=== PATIENT | female | born 1970 | race Caucasian/White ===

== ENCOUNTER → 2022-04-16 10:09 | Outpatient (CLI) | payer OTHER, SELFPAY ==
--- NOTE | 2022-04-16 | DI.RAD.S_ITS ---
PROCEDURE: XR LUMBAR SPINE 2-3V INDICATIONS: BACK PAIN TECHNIQUE: 3 views of the lumbar spine were acquired. COMPARISON: None. FINDINGS: Mild lumbar levoscoliosis centered at L2. No listhesis. Vertebral body heights maintained. Disc height loss at L1-L2, L2-L3, and L3-L4 with degenerative endplate change and facet hypertrophy. Additional facet hypertrophy at L4-L5 and L5-S1. Suspected mild to moderate neural foraminal narrowing at these levels. IMPRESSION: Overall mild to moderate lumbar spine degenerative changes with suspected neural foraminal narrowing. MRI recommended. Dictated by: Hardeep Morales M.D. on 04/16/2022 at 16:39 Approved by: Hardeep Morales M.D. on 04/16/2022 at 16:41
--- NOTE | 2022-04-16 | DI.RAD.S_ITS ---
PROCEDURE: XR THORACIC SPINE 3V INDICATIONS: BACK PAIN TECHNIQUE: 3 views of the thoracic spine were acquired. COMPARISON: None. FINDINGS: Bones: No fractures or dislocations. No suspicious bony lesions. 12 pairs of ribs are noted, and appear intact where visualized. Soft tissues: No paravertebral stripe thickening. IMPRESSION: Normal thoracic spine radiographs Approved by: Rodolfo Qiu M.D. on 04/16/2022 at 16:43
== END ==
PROVIDERS: PCP Internal Medicine; Referring Provider Internal Medicine; Visit Provider Internal Medicine
DX: M47.816 Spondylosis without myelopathy or radiculopathy, lumbar region (principal); M47.817 Spondylosis without myelopathy or radiculopathy, lumbosacral region; M54.50 Low back pain, unspecified
CPT/HCPCS: 72072; 72100

== ENCOUNTER → 2022-04-19 17:05 | Outpatient (CLI) | payer OTHER, SELFPAY ==
--- NOTE | 2022-04-19 | DI.MRI.S_ITS ---
PROCEDURE: MR LUMBAR SPINE WO CON INDICATIONS: Low back pain, unspecified TECHNIQUE: Noncontrast sagittal T1 spin echo and T2 fast echo, sagittal STIR, and T2 fast spin echo through the lumbar spine. In cases with scoliosis, additional coronal T2 fast spin echo may be performed. COMPARISON: [facility], CR, XR LUMBAR SPINE 2-3V, 04/16/2022, 11:05. FINDINGS: Image quality: Diagnostic Alignment and Curvature: Mild levoconvex scoliotic curvature is noted. Minimal retrolisthesis is seen at the L2-L3 level. Bone Marrow: Marrow is of normal overall signal. No acute vertebral body compression fractures. Spinal Cord: Conus medullaris terminates at the T12-L1 level. Visualized cord demonstrates normal signal and size. Paraspinous Soft Tissues: No paravertebral masses. T11-T12: Normal. T12-L1: The disc height and disk signal are relatively well-preserved. Mild disc bulge is seen, with a central/left disc protrusion, as on series 2, image 10 and on series 5, image 3. No neural foraminal narrowing is seen. No significant central canal narrowing is seen. L1-L2: [id number] loss of disc height and disc signal can be seen. Mild disc bulge is seen, with a central/right disc protrusion, as on series 2, image 10 on series 5, image 8. No neural foraminal narrowing is seen. Mild central canal narrowing is seen. L2-L3: Mild loss of disc height is seen. Loss of disc signal is seen. Moderate disc bulge is seen, which is eccentric to the left. There is a left foraminal disc protrusion, as on series 5 image 14 and on series 3, image 13. Mild to moderate facet hypertrophy is seen. There is at least moderate left-sided neural foraminal narrowing, with a mild degree of compression upon the exiting left L2 nerve root. Mild right-sided neural foraminal narrowing is seen. Mild central canal narrowing is seen. L3-L4: The disc height is well-preserved. Loss of disc signal is seen at this level. Mild to moderate disc bulge is seen, with a left foraminal disc protrusion, as on series 5, image 19 and on series 3 image 13. Mild facet joint hypertrophy is seen. There is moderate left-sided and no significant right-sided neural foraminal narrowing. No significant central canal narrowing is seen. L4-L5: The disc height is well-preserved. Loss of disc signal is seen at this level. Mild generalized disc bulge is seen. Mild facet joint hypertrophy is seen. There is [id number] right-sided and mild left-sided neural foraminal narrowing. No significant central canal narrowing is seen. L5-S1: No significant abnormality is seen. IMPRESSION: Multiple levels of lumbar spine degenerative change are seen, which are overall worst at the L2-L3 level. Dictated by: Steve Cloud M.D. on 04/20/2022 at 9:47 Approved by: Steve Cloud M.D. on 04/20/2022 at 9:51
== END ==
PROVIDERS: PCP Internal Medicine; Referring Provider Internal Medicine; Visit Provider Internal Medicine
DX: M47.816 Spondylosis without myelopathy or radiculopathy, lumbar region (principal); M54.50 Low back pain, unspecified
CPT/HCPCS: 72148

== ENCOUNTER 2022-06-08 05:25 | Emergency (ER) | payer OTHER, SELFPAY ==
[2022-06-08] VITALS (10 sets, daily range): BP systolic 127–160; BP diastolic 65–84; PULSE 80–104; RESP 16–18; TEMP 36.6–36.9; O2SAT 95–98; BMI 31.1
--- NOTE | 2022-06-08 05:49 | ED.BACK ---
HPI - Back Pain/Injury <Luke Penn DO - Last Filed: 06/09/22 06:21> General Chief Complaint: Back Pain/Injury Stated Complaint: lower back pain, hard time walking Time Seen by Provider: 06/08/22 05:30 Source: patient History of Present Illness HPI Narrative: 51-year-old female nonsmoker with known chronic back pain and degenerative disc disease with MRI as recently as April presents with her in the chief complaint severe low back pain with radiation down both legs. She states that she had been having her routine back pain which seems to come and go, she has good days and bad days but went to bed in her normal state of health and upon waking found that her back pain was significantly worse and radiates down both legs. She denies any recent trauma or injury. She is had no fever or chills and denies any trouble controlling bowel or bladder. She takes no blood thinners denies lower extremity numbness, tingling or weakness. Her current pain regimen includes Percocet in the occasional CBD gummy. She is not been on steroids, gabapentin or anti-inflammatories Related Data Previous Rx's Medication Instructions Recorded methocarbamol 750 mg tablet 750 mg PO Q12HR #20 tabs 06/08/22 oxycodone-acetaminophen 5 mg-325 1 tab PO Q6H PRN pain #10 tabs 06/08/22 mg tablet (Percocet) Allergies Allergy/AdvReac Type Severity Reaction Status Date / Time Sulfa (Sulfonamide Allergy Rash Verified 06/08/22 06:21 Antibiotics) Review of Systems <DO Oswaldo Beck Last Filed: 06/09/22 06:21> Review of Systems Narrative: GENERAL: Denies chills, fatigue, malaise, fever, sweats. HEENT: Denies sinus pain, ear pain, sore throat, difficulty swallowing, dizziness. RESPIRATORY: Denies dyspnea, cough, wheezing, hemoptysis, sputum. CARDIOVASCULAR: Denies chest pain, palpitations, orthopnea, edema, GASTROINTESTINAL: Denies nausea, vomiting, abdominal pain, diarrhea, constipation, melena. : Denies dysuria, frequency, incontinence, hematuria, urinary retention. MUSCULOSKELETAL: See HPI SKIN: Denies rash, skin lesions, or other NEUROLOGIC: Denies weakness, headache, numbness, change in speech, confusion, seizures, incoordination. PSYCHIATRIC: No concerning psychosocial issues. 12 point review of systems is negative except for those stated above Patient History <Luke Penn DO - Last Filed: 06/09/22 06:21> Social History Smoking Status: Never smoker Smoking Status: Never smoker Substance Use Type: other Exam <DO Oswaldo Beck Last Filed: 06/09/22 06:21> Narrative Exam Narrative: GENERAL: [] year old patient appears stated age. Well-developed patient, in mild distress. HEAD: Atraumatic. Normocephalic. EYES: Pupils equal round and reactive. Extraocular motions intact. No scleral icterus. No injection or drainage. ENT: Nose without bleeding, purulent drainage. Throat without erythema, tonsillar hypertrophy or exudate. Airway patent. NECK: Trachea midline. Non tender CARDIOVASCULAR: Regular rate and rhythm without murmurs, gallops, or rubs. RESPIRATORY: Clear to auscultation. Breath sounds equal bilaterally. No wheezes, rales, or rhonchi. GASTROINTESTINAL: Abdomen soft, non-tender, nondistended. EXTREMITIES: No edema or joint tenderness. BACK: rabble furnace tender but free of any obvious external abnormalities. Patient exam notes decreased range of motion and muscle spasm, but no CVA tenderness, or vertebral point tenderness. There are no symptoms of cauda equina such as saddle anesthesia, and decreased reflexes, decreased sensation or strength. NEURO: AOx3. SKIN: No rash or erythema of visible areas Initial Vital Signs Initial Vital Signs: Vital Signs Pulse Rate 98 H 06/08/22 05:37 Pulse Oximetry 97 06/08/22 05:37 <Machelle Bryant DO - Last Filed: 06/08/22 19:39> Initial Vital Signs Initial Vital Signs: Vital Signs Pulse Rate 98 H 06/08/22 05:37 Pulse Oximetry 97 06/08/22 05:37 Course <Luke Penn DO - Last Filed: 06/09/22 06:21> Orders Ordered: Discontinued Medications Gabapentin (Gabapentin 300 Mg Capsule) 300 mg PO NOW ONE Stop: 06/08/22 06:01 Last Admin: 06/08/22 06:34 Dose: 300 mg Documented By: GC Ketorolac Tromethamine (Ketorolac 30 Mg/Ml Vial) 30 mg IM NOW ONE Stop: 06/08/22 06:01 Last Admin: 06/08/22 06:33 Dose: 30 mg Documented By: SHANTEL Methocarbamol (Methocarbamol 500 Mg Tablet) 750 mg PO NOW ONE Stop: 06/08/22 07:57 Last Admin: 06/08/22 08:59 Dose: 750 mg Documented By: DELIO Oxycodone/Acetaminophen (Oxycodone/Acetaminophen 5/325 Tablet) 1 tab PO NOW ONE Stop: 06/08/22 07:57 Last Admin: 06/08/22 08:59 Dose: 1 tab Documented By: DELIO Prednisone (Prednisone 20 Mg Tablet) 40 mg PO NOW ONE Stop: 06/08/22 06:01 Last Admin: 06/08/22 06:34 Dose: 40 mg Documented By: SHANTEL Vital Signs Vital signs: Vital Signs - 8 hr 06/08/22 05:41 Temperature 98 F Pulse Rate 100 H Respiratory Rate 16 Blood Pressure 157/84 H Pulse Oximetry 97 Oxygen Delivery Method Room Air <Machelle Bryant DO - Last Filed: 06/08/22 19:39> Orders Ordered: Discontinued Medications Gabapentin (Gabapentin 300 Mg Capsule) 300 mg PO NOW ONE Stop: 06/08/22 06:01 Last Admin: 06/08/22 06:34 Dose: 300 mg Documented By: SHANTEL Ketorolac Tromethamine (Ketorolac 30 Mg/Ml Vial) 30 mg IM NOW ONE Stop: 06/08/22 06:01 Last Admin: 06/08/22 06:33 Dose: 30 mg Documented By: SHANTEL Methocarbamol (Methocarbamol 500 Mg Tablet) 750 mg PO NOW ONE Stop: 06/08/22 07:57 Last Admin: 06/08/22 08:59 Dose: 750 mg Documented By: DELIO Oxycodone/Acetaminophen (Oxycodone/Acetaminophen 5/325 Tablet) 1 tab PO NOW ONE Stop: 06/08/22 07:57 Last Admin: 06/08/22 08:59 Dose: 1 tab Documented By: DELIO Prednisone (Prednisone 20 Mg Tablet) 40 mg PO NOW ONE Stop: 06/08/22 06:01 Last Admin: 06/08/22 06:34 Dose: 40 mg Documented By: SHANTEL Vital Signs Vital signs: Vital Signs - 8 hr 06/08/22 05:41 Temperature 98 F Pulse Rate 100 H Respiratory Rate 16 Blood Pressure 157/84 H Pulse Oximetry 97 Oxygen Delivery Method Room Air <Machelle Bryant, DO - Last Filed: 06/08/22 19:39> Imaging Data MR Lumbar 04/20/2022: Radiologist's Impression: ROCEDURE:? MR LUMBAR SPINE WO CON ? INDICATIONS:? Low back pain, unspecified ? TECHNIQUE:? Noncontrast sagittal T1 spin echo and T2 fast echo, sagittal STIR, and T2 fast spin echo through the lumbar spine.? In cases with scoliosis, additional coronal T2 fast spin echo may be performed.? ? COMPARISON:? [facility], CR, XR LUMBAR SPINE 2-3V, 04/16/2022, 11:05. ? FINDINGS:? Image quality:? Diagnostic ? Alignment and Curvature:? Mild levoconvex scoliotic curvature is noted.? Minimal retrolisthesis is seen at the L2-L3 level. ? Bone Marrow:? Marrow is of normal overall signal.? No acute vertebral body compression fractures.? ? Spinal Cord:? Conus medullaris terminates at the T12-L1 level.? Visualized cord demonstrates normal signal and size.? ? Paraspinous Soft Tissues:? No paravertebral masses.? ? T11-T12:? Normal. ? T12-L1:? The disc height and disk signal are relatively well-preserved.? Mild disc bulge is seen, with a central/left disc protrusion, as on series 2, image 10 and on series 5, image 3.? No neural foraminal narrowing is seen.? No significant central canal narrowing is seen. ? L1-L2:? [id number] loss of disc height and disc signal can be seen.? Mild disc bulge is seen, with a central/right disc protrusion, as on series 2, image 10 on series 5, image 8. No neural foraminal narrowing is seen. Mild central canal narrowing is seen.? ? ? L2-L3:? Mild loss of disc height is seen. Loss of disc signal is seen.? Moderate disc bulge is seen, which is eccentric to the left.? There is a left foraminal disc protrusion, as on series 5 image 14 and on series 3, image 13. Mild to moderate facet hypertrophy is seen.? There is at least moderate left-sided neural foraminal narrowing, with a mild degree of compression upon the exiting left L2 nerve root.? Mild right-sided neural foraminal narrowing is seen. Mild central canal narrowing is seen.? ? ? L3-L4:? The disc height is well-preserved.? Loss of disc signal is seen at this level.? Mild to moderate disc bulge is seen, with a left foraminal disc protrusion, as on series 5, image 19 and on series 3 image 13. Mild facet joint hypertrophy is seen.? There is moderate left-sided and no significant right-sided neural foraminal narrowing.? No significant central canal narrowing is seen.? ? L4-L5:? The disc height is well-preserved.? Loss of disc signal is seen at this level.? Mild generalized disc bulge is seen.? Mild facet joint hypertrophy is seen.? There is [id number] right-sided and mild left-sided neural foraminal narrowing.? No significant central canal narrowing is seen. ? L5-S1:? No significant abnormality is seen. ? ? IMPRESSION:? Multiple levels of lumbar spine degenerative change are seen, which are overall worst at the L2-L3 level. ? ? Dictated by: Steve Cloud M.D. on 04/20/2022 at 9:47 ?? MDM Narrative Medical decision making narrative: Patient signed out to me by Dr. Penn I have seen and evaluated patient myself. Chronic ongoing back pain had a MRI spine 04/20/2022 which showed multiple degenerative disc disease no significant stenosis. Presents today with bilateral leg pain no loss of bowel or urine no significant weakness in her legs. She received Toradol prednisone and gabapentin without any relief. She reports that she only took half a Percocet prior arrival she does not typically like opiates. She also methocarbamol at home which she took last night and is now out. Discharge Plan Departure Patient Disposition: Home Clinical Impression: Acute exacerbation of chronic low back pain Instructions: DI for Back Pain With Sciatica Activity Restrictions/Additional Instructions: *You have been diagnosed with acute on chronic back pain *What to do: At this time I recommend heating pad hot bath light massage some light activity and movement. No strenuous activity *Continue to take medications as directed --> SENT TO [facility] Percocet 1 tablet every 6 hours if needed for severe pain Ibuprofen 600 mg every 6 hours if needed for [id number] Methocarbamol 752 1500 mg every 8 hours if needed for muscle spasm *Follow up with your primary care provider in 2-3 days or call [phone] *Return to ER if you should have increasing leg weakness loss of urine loss of stool or any new, worsening or concerning symptoms CONTROLLED SUBSTANCE DISCHARGE (Narcotoic/benzodiazepine/Flexeril/Phenergan) 1. You have been prescribed narcotic medications, it does have acetaminophen/Tylenol/paracetamol in it, DO NOT TAKE MORE THAN 4,00mg in 24 hours of Tylenol. TRAMADOL DOES NOT CONTAIN TYLENOL 2. Please understand that we cannot provide further refills of narcotics, benzodiazepines or controlled substances through the ED and her pain management will need to be through your provider. 3. While on these medications you cannot drive or operate heavy machinery. 4. You cannot sign legal documents or perform any duties such as this. 5. As long as you're taking opiate pain medications he should also be taking a stool softener such as Colace, Dulcolax, MiraLAX or prune juice, to help avoid constipation. Prescriptions: New oxycodone-acetaminophen [Percocet] 5-325 mg tablet 1 tab PO Q6H PRN (Reason: pain) Qty: 10 0RF methocarbamol 750 mg tablet 750 mg PO Q12HR Qty: 20 0RF Stand Alone Forms: Patient Portal/API
[2022-06-08] MEDS: KETOROLAC 30 MG/ML VIAL IM (06:33)
[2022-06-08] MEDS: predniSONE 20 MG TABLET 40 MG PO (06:34)
[2022-06-08] MEDS: GABAPENTIN 300 MG CAPSULE PO (06:34)
[2022-06-08] MEDS: methocarbamoL 500 MG TABLET 750 MG PO (08:59)
[2022-06-08] MEDS: OXYCODONE/ACETAMINOPHEN 5/325 TABLET 1 TAB PO (08:59)
== END 2022-06-08 09:02 | disposition home or self-care (01) ==
PROVIDERS: Emergency Provider Emergency Medicine
DX: M54.50 Low back pain, unspecified (principal); M51.36 Other intervertebral disc degeneration, lumbar region
CPT/HCPCS: 99283; J1885

== ENCOUNTER 2022-06-08 18:57 | Emergency (ER) | payer OTHER, SELFPAY ==
[2022-06-08 19:06] VITALS: BP 154/91; PULSE 104; RESP 16; TEMP 36.6; O2SAT 99; BMI 31.1
--- NOTE | 2022-06-08 19:39 | ED_ITS ---
HPI - Back Pain/Injury General Chief Complaint: Back Pain/Injury Stated Complaint: Fall, ABD pain Time Seen by Provider: 06/08/22 19:21 History of Present Illness HPI Narrative: [age] year female nonsmoker with chronic back pain presents for the 2nd time today for evaluation of severe, if not worsening back pain. She was seen by myself earlier today and had no evidence of neurosurgical emergency, was medicated with opioids, gabapentin, methocarbamol, prednisone, ketorolac demonstrated significant improvement, had MRI in April that showed no significant abnormal finding. She returns by EMS due to worsening pain and a few falls due to her right leg giving out on her. She denies any fever or chills, she denies the use of blood thinners. She denies loss of control of bowel or bladder. She states that she had been much more comfortable earlier in the day but as the day has worn on her symptoms have worsened Related Data Previous Rx's Medication Instructions Recorded methocarbamol 750 mg tablet 750 mg PO Q12HR #20 tabs 06/08/22 oxycodone-acetaminophen 5 mg-325 1 tab PO Q6H PRN pain #10 tabs 06/08/22 mg tablet (Percocet) Allergies Allergy/AdvReac Type Severity Reaction Status Date / Time Sulfa (Sulfonamide Allergy Rash Verified 06/08/22 06:21 Antibiotics) Review of Systems Review of Systems Narrative: GENERAL: Denies chills, fatigue, malaise, fever, sweats. HEENT: Denies sinus pain, ear pain, sore throat, difficulty swallowing, dizziness. RESPIRATORY: Denies dyspnea, cough, wheezing, hemoptysis, sputum. CARDIOVASCULAR: Denies chest pain, palpitations, orthopnea, edema, GASTROINTESTINAL: Denies nausea, vomiting, abdominal pain, diarrhea, constipation, melena. : See HPI MUSCULOSKELETAL: See HPI SKIN: Denies rash, skin lesions, or other NEUROLOGIC: See HPI PSYCHIATRIC: No concerning psychosocial issues. 12 point review of systems is negative except for those stated above Patient History Social History Smoking Status: Never smoker Smoking Status: Never smoker Substance Use Type: other Exam Narrative Exam Narrative: GENERAL: [51] year old patient appears stated age. Well-developed patient, in obvious distress. HEAD: Atraumatic. Normocephalic. EYES: Pupils equal round and reactive. Extraocular motions intact. No scleral icterus. No injection or drainage. ENT: Nose without bleeding, purulent drainage. Throat without erythema, tonsillar hypertrophy or exudate. Airway patent. NECK: Trachea midline. Non tender CARDIOVASCULAR: Regular rate and rhythm without murmurs, gallops, or rubs. RESPIRATORY: Clear to auscultation. Breath sounds equal bilaterally. No wheezes, rales, or rhonchi. GASTROINTESTINAL: Abdomen soft, non-tender, nondistended. RECTAL: Rectal tone in tact EXTREMITIES: No edema or joint tenderness. BACK: Decreased sensation but still can sense touch in saddle region. Patient able to lift left leg off the cart but briskly falls back to the cart, this is a change from earlier today. Bilateral patellar reflexes absent. Left leg with myoclonus upon passive active dorsiflexion of ankle. Significant decreased sensa tion. NEURO: AOx3. SKIN: No rash or erythema of visible areas Initial Vital Signs Initial Vital Signs: Vital Signs Temperature 97.8 F 06/08/22 19:06 Pulse Rate 104 H 06/08/22 19:06 Respiratory Rate 16 06/08/22 19:06 Blood Pressure 154/91 H 06/08/22 19:06 Pulse Oximetry 99 06/08/22 19:06 Oxygen Delivery Method Room Air 06/08/22 19:06 Course Course Course Narrative: Upon return from CT patient complains of worsening lower pelvic pain and an inability to urinate. Bedside bladder scan notes greater than 999 mL. Haas catheter placed and 1500 cc of urine out, patient reports significant improved symptoms in her anterior lower pelvic pain Orders Ordered: ED Orders 06/08/22 20:03 C-Reactive Protein Quant Stat Complete Blood Count AUTO DIFF Stat Comprehensive Metabolic Panel Stat Erythrocyte Sedimentation Rate Stat Lactate (Lactic Acid) Stat Troponin & CK Cardiac Panel Stat 06/08/22 21:00 COVID19 -Nasal RAPID/Pre-Proc Stat 06/08/22 21:47 COVID19 -Nasal RAPID/Pre-Proc Stat 06/08/22 21:56 Urinalysis and Microscopic Stat Discontinued Medications Dexamethasone (Dexamethasone 10 Mg/Ml Vial) 6 mg IV NOW ONE Stop: 06/09/22 04:25 Last Admin: 06/09/22 04:50 Dose: 6 mg Hydromorphone HCl (Hydromorphone 0.5 Mg Inj) 0.5 mg IV NOW ONE Stop: 06/08/22 23:06 Last Admin: 06/08/22 23:18 Dose: 0.5 mg Documented By: CRISTIAN Hydromorphone HCl (Hydromorphone 0.5 Mg Inj) 0.5 mg IV NOW ONE Stop: 06/09/22 02:39 Last Admin: 06/09/22 02:45 Dose: 0.5 mg Documented By: BAN Hydromorphone HCl (Hydromorphone 0.5 Mg Inj) 0.5 mg IV NOW ONE Stop: 06/09/22 02:39 Sodium Chloride (Normal Saline 0.9%) 1,000 mls @ 1,000 mls/hr IV BOLUS ONE Stop: 06/08/22 20:40 Last Infusion: 06/08/22 22:01 Dose: 0 mls/hr Documented By: Admin: 06/08/22 20:22 Dose: 1,000 mls/hr Documented By: CRISTIAN Ketorolac Tromethamine (Ketorolac 30 Mg/Ml Vial) 15 mg IV NOW ONE Stop: 06/09/22 04:25 Last Admin: 06/09/22 04:51 Dose: 15 mg Lorazepam (Lorazepam 2 Mg/Ml Inj) 1 mg IM NOW ONE Stop: 06/08/22 19:46 Last Admin: 06/08/22 20:21 Dose: 1 mg Documented By: CRISTIAN Vital Signs Vital signs: Vital Signs - 8 hr 06/08/22 21:00 06/09/22 02:59 06/09/22 03:00 Pulse Rate 113 H 93 H Blood Pressure 128/69 146/83 H Pulse Oximetry 100 94 Oxygen Delivery Method Room Air 06/09/22 03:00 06/09/22 03:30 06/09/22 03:30 Pulse Rate 95 H 100 H Blood Pressure 146/87 H Pulse Oximetry 95 94 Oxygen Delivery Method Room Air 06/09/22 04:00 06/09/22 04:00 Pulse Rate 92 H Blood Pressure 127/82 Pulse Oximetry 94 Oxygen Delivery Method Room Air MDM - Back Pain/Injury Lab Data 06/08/22 20:03 06/08/22 20:03 Labs: Lab Results 06/08/22 06/08/22 06/08/22 Range/Units 20:03 20:03 20:03 WBC 13.5 H (4.5-11.0) X10^3/uL RBC 4.86 (4.0-5.2) X10^6/uL Hgb 13.9 (12.0-16.0) g/dL Hct 41.2 (36-46) % MCV 84.7 (80-100) fL MCH 28.7 (26-34) PG MCHC 33.8 (30-36) % RDW 13.3 (11.6-14.8) % Plt Count 373 (150-400) X10^3/uL Neut % (Auto) 86.4 H (50-75) % Lymph % (Auto) 7.2 L (25-40) % [place] % (Auto) 6.0 (3-14) % Eos % (Auto) 0.0 L (2-4) % Baso % (Auto) 0.4 (0-2) % Neut # (Auto) 73346 H (6769-2783) /uL Lymph # (Auto) 1000 L (0286-2086) /uL [place] # (Auto) 800 (0-900) /uL Eos # (Auto) 0 (0-450) /uL Baso # (Auto) 100 (0-100) /uL ESR 17 (0-20) MM/HR Sodium 137 (137-145) mmol/L Potassium 4.4 (3.4-5.1) mmol/L Chloride 104 (98-107) mmol/L Carbon Dioxide 22 (22-32) mmol/L BUN 8 (7-17) mg/dL Creatinine 0.64 (0.52-1.04) mg/dL Estimated GFR > 60 (>60) mL/min BUN/Creatinine Ratio 12.5 (6-22) Glucose 119 H (70-100) mg/dL Lactate 2.0 (0.7-2.1) mmol/L Calcium 9.4 (8.4-10.2) mg/dL Total Bilirubin 0.5 (0.2-1.3) mg/dL AST 48 H (14-36) IU/L ALT 39 H (<35) IU/L Alkaline Phosphatase 100 (38-126) U/L Total Creatine Kinase 78 (30-135) U/L CK-MB (CK-2) TNP CK-MB (CK-2) Rel Index TNP Troponin I < 0.012 (0.01-0.034) ng/mL C-Reactive Protein 1.9 H (<1.0) mg/dL Total Protein 8.1 (6.3-8.2) g/dL Albumin 4.4 (3.5-5.0) g/dL Globulin 3.7 (1.7-4.1) g/dL Albumin/Globulin Ratio 1.2 (1.0-2.8) Urine Color Urine Appearance Urine pH (4.5-8.0) Ur Specific [place] (1.000-1.035) Urine Protein (Negative) Urine Glucose (UA) (Negative) g/dL Urine Ketones (NEGATIVE) Urine Occult Blood (Negative) Urine Nitrate (Negative) Urine Bilirubin (NEGATIVE) Urine Urobilinogen (0.2) E.U./dL Ur Leukocyte Esterase (NEGATIVE) Urine RBC (0-5/HPF) Urine WBC (0-5/HPF) Ur Squamous Epith Cells (0-5/HPF) Urine Bacteria (None) Ur Culture Indicated? SARS-CoV-2 (PCR) (Negative) 06/08/22 06/08/22 06/09/22 Range/Units 21:00 21:56 02:47 WBC (4.5-11.0) X10^3/uL RBC (4.0-5.2) X10^6/uL Hgb (12.0-16.0) g/dL Hct (36-46) % MCV (80-100) fL MCH (26-34) PG MCHC (30-36) % RDW (11.6-14.8) % Plt Count (150-400) X10^3/uL Neut % (Auto) (50-75) % Lymph % (Auto) (25-40) % [place] % (Auto) (3-14) % Eos % (Auto) (2-4) % Baso % (Auto) (0-2) % Neut # (Auto) (9866-9300) /uL Lymph # (Auto) (2861-2762) /uL [place] # (Auto) (0-900) /uL Eos # (Auto) (0-450) /uL Baso # (Auto) (0-100) /uL ESR (0-20) MM/HR Sodium (137-145) mmol/L Potassium (3.4-5.1) mmol/L Chloride (98-107) mmol/L Carbon Dioxide (22-32) mmol/L BUN (7-17) mg/dL Creatinine (0.52-1.04) mg/dL Estimated GFR (>60) mL/min BUN/Creatinine Ratio (6-22) Glucose (70-100) mg/dL Lactate (0.7-2.1) mmol/L Calcium (8.4-10.2) mg/dL Total Bilirubin (0.2-1.3) mg/dL AST (14-36) IU/L ALT (<35) IU/L Alkaline Phosphatase (38-126) U/L Total Creatine Kinase (30-135) U/L CK-MB (CK-2) CK-MB (CK-2) Rel Index Troponin I (0.01-0.034) ng/mL C-Reactive Protein (<1.0) mg/dL Total Protein (6.3-8.2) g/dL Albumin (3.5-5.0) g/dL Globulin (1.7-4.1) g/dL Albumin/Globulin Ratio (1.0-2.8) Urine Color Yellow Urine Appearance Clear Urine pH 7.0 (4.5-8.0) Ur Specific [place] 1.010 (1.000-1.035) Urine Protein Negative (Negative) Urine Glucose (UA) Negative (Negative) g/dL Urine Ketones Negative (NEGATIVE) Urine Occult Blood Negative (Negative) Urine Nitrate Negative (Negative) Urine Bilirubin Negative (NEGATIVE) Urine Urobilinogen 0.2 (0.2) E.U./dL Ur Leukocyte Esterase Negative (NEGATIVE) Urine RBC None seen (0-5/HPF) Urine WBC 0-1/hpf (0-5/HPF) Ur Squamous Epith Cells 0-1 /hpf (0-5/HPF) Urine Bacteria None seen (None) Ur Culture Indicated? Cult not indicated SARS-CoV-2 (PCR) Negative Negative (Negative) MDM Narrative Medical decision making narrative: CC: 51-year-old female with severe low back pain, left leg weakness contributing to falls, urinary retention Complicating co-morbidities: Age Data collected from: Patient Medical records reviewed: Prior notes reviewed in our EMR Differential considered, but not limited to: Cord compression, cauda equina versus other Exam documented above, pertinent findings include: Saddle anesthesia, intact rectal tone, significantly depressed sensation and lower extremity reflexes, left lower extremity weakness, left lower extremity myoclonus Lab Test results independently reviewed as above. Pertinent findings: Leukocytosis without significant left shift, H&H stable, slight elevation in LFTs, slight elevation in inflammatory markers Imaging studies independently reviewed: No access to MRI, CT with IV contrast of L-spine and pelvis without significant abnormal findings [place]ations: [place] [facility] [place]ments: Decadron, Dilaudid, Gabapentin, Ativan, Toradol Re-evaluations: Minimal improvement in pain, no change in neuro Discussion: Patient with severe low back pain, urinary retention, saddle anesthesia, severe left leg weakness causing falls, severely depressed sensation, reflexes with myoclonus. These symptoms have all rapidly worsened over the past 24 hours, patient was seen and evaluated yesterday in the symptoms have significantly worsened. We do not have access to MRI, our best attempts at imaging available as CT with IV contrast which showed no significant findings. Patient had no improvement with above-stated therapies and there is significant concern for a neurosurgical emergency such as cord compression, cauda equina, epidural abscess, hematoma versus other. Patient will be transported by air medical given potential for significant delays by ground Critical Care Time Critical Care Time Critical Care Time: Yes Total Critical Care Time: 30 Attestation: The high probability of a clinically significant, sudden or life threatening deterioration of the [MSK] system(s) required my full and direct attention, intervention and personal management. The aggregate critical care time was [30] minutes. This time is in addition to time spent performing reported procedures but includes the following: [x] Data Review and interpretation [x] Patient assessment and monitoring of vital signs [x] Documentation []x Medication orders and management Discharge Plan [facility]: Cord compression, Cauda equina compression Prescriptions: No Action oxycodone-acetaminophen [Percocet] 5-325 mg tablet 1 tab PO Q6H PRN (Reason: pain) Qty: 10 0RF methocarbamol 750 mg tablet 750 mg PO Q12HR Qty: 20 0RF
--- NOTE | 2022-06-08 19:45 | DI.CT.S_ITS ---
PROCEDURE: CT LUMBAR SPINE W CON INDICATIONS: worsening back pain, radicular symptoms TECHNIQUE: After the administration of intravenous Isovue contrast, 3 mm thick sections acquired through the levels of interest. Sagittal and coronal reformats were then constructed. For radiation dose reduction, the following was used: automated exposure control. COMPARISON: [facility], MR, MR LUMBAR SPINE WO CON, 04/19/2022, 18:29. FINDINGS: Image quality: Excellent. Bones: No acute fracture or subluxation. There are 5 lumbar type [id number] vertebrae. A mild leftward curvature of the thoracolumbar spine is redemonstrated. There is minimal retrolisthesis at L2-L3. There is mild to moderate degenerative disc disease at L2-L3. There are small disc bulges throughout the lumbar spine. No high-grade spinal canal narrowing. Multilevel neural foraminal narrowing also demonstrated including moderate narrowing on the left at L2-L3 with associated mass effect on the exiting left nerve root. There is also mild narrowing on the right. Additional mild neural foraminal narrowing also demonstrated at L3-L4 and L4-5 bilaterally. Soft tissues: No paravertebral collections. Visualized abdomen demonstrates no intraperitoneal free fluid. There is distention of the visualized bladder. IMPRESSION: 1. No acute fracture or subluxation. 2. Mild to moderate degenerative disc disease redemonstrated at L2-L3. 3. Mild multilevel disc bulging without high-grade spinal canal narrowing. 4. Multilevel neural foraminal narrowing including moderate narrowing on the left at L2-L3 with mild mass effect on the exiting left nerve root. Findings appear similar to the recent MRI. Dictated by: Rudi Carter M.D. on 06/08/2022 at 22:25 Approved by: Rudi Carter M.D. on 06/08/2022 at 22:31
--- NOTE | 2022-06-08 19:45 | DI.CT.S_ITS ---
PROCEDURE: CT PELVIS W CON INDICATIONS: worsening low back pain and low pelvic pain, radicular TECHNIQUE: After the administration of intravenous contrast, 5 mm thick sections acquired from the iliac crests to the symphysis. 5 mm coronal and sagittal reformats were acquired. For radiation dose reduction, the following was used: automated exposure control, adjustment of mA and/or kV according to patient size. COMPARISON: [facility], CT, CT LUMBAR SPINE W CON, 06/08/2022, 20:57. FINDINGS: Image quality: Excellent. Peritoneum and bowel: Visualized bowel loops demonstrate normal wall thickness and caliber. No free fluid or air. Genitourinary: Bladder wall thickness is normal. There is marked distention of the bladder. Nodes and vessels: No iliac, pelvic, or inguinal adenopathy by size criteria. Iliac vessels demonstrate normal size and enhancement. Bones: No suspicious bony lesions. Miscellaneous: No inguinal hernias. No pelvic mass lesions. Specifically, no abnormal mass lesions along the expected course of the lumbar plexus. IMPRESSION: 1. No suspicious mass lesions in the pelvis. 2. Marked distention of the urinary bladder. Dictated by: Rudi Carter M.D. on 06/08/2022 at 22:31 Approved by: Rudi Carter M.D. on 06/08/2022 at 22:33
[2022-06-08 20:00] VITALS: BP 142/86; PULSE 100; O2SAT 97
[2022-06-08 20:19] LABS: Add Manual Diff / Slide Review NO; Basophils Absolute Auto 100 /uL (0-100); Basophils Percent Auto 0.4 % (0-2); Eosinophils Absolute Auto 0 /uL (0-450); Hematocrit 41.2 % (36-46); Hemoglobin 13.9 g/dL (12.0-16.0); Lymphocytes Absolute Auto 1000 /uL (1100-4500); Lymphocytes Percent Auto 7.2 % (25-40); Mean Corpuscular HGB Conc 33.8 % (30-36); Mean Corpuscular Hemoglobin 28.7 PG (26-34); Mean Corpuscular Volume 84.7 fL (80-100); Monocytes Absolute Auto 800 /uL (0-900); Neutrophils Absolute Auto 11600 /uL (1500-7000); Neutrophils Percent Auto 86.4 % (50-75); Platelet Count 373 X10^3/uL (150-400); Red Blood Cell Count 4.86 X10^6/uL (4.0-5.2); Red Cell Distribution Width 13.3 % (11.6-14.8); White Blood Cell Count 13.5 X10^3/uL (4.5-11.0)
[2022-06-08] MEDS: LORazepam 2 MG/ML INJ 1 MG IM (20:21)
[2022-06-08] MEDS: SODIUM CHLORIDE 0.9% 1,000 ML 1000 ML IV (20:22)
[2022-06-08 20:30] VITALS: BP 142/82; PULSE 101; O2SAT 98
[2022-06-08 20:33] LABS: Alanine Aminotransferase 39 IU/L (<35); Albumin 4.4 g/dL (3.5-5.0); Albumin Globulin Ratio 1.2 (1.0-2.8); Alkaline Phosphatase 100 U/L (38-126); Aspartate Aminotransferase 48 IU/L (14-36); BUN Creatinine Ratio 12.5 (6-22); Bilirubin Total 0.5 mg/dL (0.2-1.3); Blood Urea Nitrogen 8 mg/dL (7-17); C-Reactive Protein Quant 1.9 mg/dL (<1.0); Calcium 9.4 mg/dL (8.4-10.2); Carbon Dioxide 22 mmol/L (22-32); Chloride 104 mmol/L (98-107); Creatine Kinase 78 U/L (30-135); Estimated Glomerular Filt Rate > 60 mL/min (>60); Globulin 3.7 g/dL (1.7-4.1); Glucose 119 mg/dL (70-100); HEMOLYSIS < 15 (0-50); Potassium 4.4 mmol/L (3.4-5.1); Sodium 137 mmol/L (137-145); Total Protein 8.1 g/dL (6.3-8.2)
[2022-06-08 20:43] LABS: Troponin I < 0.012 ng/mL (0.01-0.034)
[2022-06-08 20:56] LABS: Erythrocyte Sedimentation Rate 17 MM/HR (0-20)
[2022-06-08 21:00] VITALS: BP 128/69; PULSE 113; O2SAT 100
[2022-06-08 21:24] LABS: COVID19 -Nasal RAPID Negative (Negative)
[2022-06-08 22:04] LABS: Appearance Urine UA CLEAR; Bilirubin Urine UA NEGATIVE (NEGATIVE); Color Urine UA YELLOW; Glucose Urine UA NEGATIVE (Negative); Ketones Urine UA NEGATIVE (NEGATIVE); Leukocyte Esterase Urine UA NEGATIVE (NEGATIVE); Nitrite Urine UA NEGATIVE (Negative); Occult Blood Urine UA NEGATIVE (Negative); Protein Urine UA NEGATIVE (Negative); Urobilinogen Urine UA 0.2 E.U./dL (0.2)
[2022-06-08 22:10] LABS: RBC Urine None Seen (0-5/HPF); Squamous Epithelial Cell Urine 0-1 /HPF (0-5/HPF); WBC Urine 0-1/HPF (0-5/HPF)
[2022-06-08 22:11] LABS: Bacteria Urine None Seen; Culture Indicated Urine Cult Not Indicated
--- NOTE | 2022-06-08 22:45 | PC.NURSE ---
Pt is states she has no feeling bilaterally from the knees down. She is unable to lift her left leg off the bed without it immediately dropping to the bed. she is able to lift the right leg. can feel sharp sensations on lower legs. light touches feel like pain just above the knees.
[2022-06-08] MEDS: HYDROMORPHONE 0.5 MG INJ IV (23:18)
[2022-06-09] MEDS: HYDROMORPHONE 0.5 MG INJ IV (02:45)
[2022-06-09 02:59] VITALS: PULSE 93; O2SAT 94
[2022-06-09 03:00] VITALS: BP 146/83; PULSE 95; O2SAT 95
[2022-06-09 03:05] LABS: COVID19 -Nasal RAPID Negative (Negative)
[2022-06-09 03:30] VITALS: BP 146/87; PULSE 100; O2SAT 94
[2022-06-09 04:00] VITALS: BP 127/82; PULSE 92; O2SAT 94
[2022-06-09 04:30] VITALS: BP 142/82; PULSE 94; O2SAT 97
[2022-06-09] MEDS: DEXAMETHASONE 10 MG/ML VIAL 6 MG IV (04:50)
[2022-06-09] MEDS: KETOROLAC 30 MG/ML VIAL 15 MG IV (04:51)
[2022-06-09 05:00] VITALS: BP 151/96; PULSE 93; O2SAT 98
== END 2022-06-09 05:30 | disposition short-term general hospital (02) ==
PROVIDERS: Emergency Provider Emergency Medicine
DX: G83.4 Cauda equina syndrome (principal); M54.50 Low back pain, unspecified; M51.36 Other intervertebral disc degeneration, lumbar region; Z20.822 Contact with and (suspected) exposure to COVID-19
CPT/HCPCS: 36415; 51798; 72132; 72193; 80053; 81001; 82550; 83605; 84484; 85025; 85651; 86140; 87635; 96372; 96374; 96375; 96376; 99283; 99285; 99291; C9803; J1100; J1170; J1885; J2060; Q9967

== ENCOUNTER → 2022-07-31 14:14 | Outpatient (CLI) | payer OTHER, SELFPAY ==
[2022-07-31 15:05] LABS: Cholesterol 215 mg/dL (140-199); HDL Cholesterol 48 mg/dL (40-60); LDL Cholesterol Calculated 130 mg/dL (<100); Triglycerides 186 mg/dL (35-150)
[2022-08-01 19:03] LABS: Hep C Virus Ab w/Reflex Quant NEGATIVE s/c (NEGATIVE)
== END ==
PROVIDERS: Family Provider Nurse Practitioner Family; PCP Student in an Organized Health Care Education/Training Program; Referring Provider Student in an Organized Health Care Education/Training Program; Visit Provider Student in an Organized Health Care Education/Training Program
DX: Z11.59 Encounter for screening for other viral diseases (principal); Z13.220 Encounter for screening for lipoid disorders
CPT/HCPCS: 36415; 80061; 86803

== ENCOUNTER 2022-08-17 09:28 | Outpatient (RCR) | payer OTHER, SELFPAY ==
--- NOTE | 2022-08-17 13:35 | OT.OP.EVAL ---
Visit Care Team Role Provider Type Greg Portillo MD Primary Care Provider Physician Specialty: Internal Medicine Address: [address] [place] [address], [address], [place], [address] Email: [email or web address] Other Providers Specialty: Address: Phone: Fax: Email: TAIWO Mendoza Family Provider Advanced Materials Buyer Specialty: Medical Address: [address] [place] [address] [address], [place], [address] Email: [email or web address] TAIWO Valdez Attending Provider Non-Staff Referring Provider Specialty: Nursing Address: [facility] [address], [place], [address] Email: Occupational Therapy Initial Evaluation OT Outpatient Adult Evaluation Start: 08/17/22 13:21 Freq: Status: Active Protocol: Document 08/17/22 13:22 AMS (Rec: 08/17/22 13:35 [facility] [id number]) General Information - Adult Visit Start Time 09:45 Visit Stop Time 10:15 Total Visit Minutes 30 Treatment Setting Outpatient Care Note Type Initial Evaluation Assessment/Plan Treatment Assessment is a 51 year-old right hand dominant female presenting post- hospitalization at [facility] d/t idiopathic transverse myelitis T10; was discharged home 07/03/22 from [facility] with assist of her . She is currently on Medical Leave and is expected to return to work on 09/10/22. PLOF = Independent with BADLS and IADLS, including driving. is currently utilizing a tub/shower chair in her tub/ shower combo which is also equipped with single grab bar and HSH for bathing; she is using hair removal gel versus shaving of her legs. denied use of any other AE at this time with completion of ADLs. She is familiar with modified distal LE dressing techniques including lying down/crossing of leg over opposite leg versus trunk flexion which leads to tension in lower back. She presents with B UE AROM WNL w/ good overall strength of shoulders, elbows, hands. Given good UE strength, ROM, and ability to execute BADLS independently ( utilizing AE and modified techniques) recommend d/c from outpatient OT w/ recommendation to cont w/ outpatient PT and consider driving rehabilitation w/ alternative OT who is skilled in this area; handout was provided for closest geographical locations (e.g., ) for driving rehabilitation . Patient Recommendations Discharge from Occupational Therapy
--- NOTE | 2022-08-17 13:36 | OT.OP.DC ---
Visit Care Team Role Provider Type Greg Portillo MD Primary Care Provider Physician Address: [address] [place] [address], [address], [address] Email: [email or web address] Other Providers Address: Phone: Fax: Email: TAIWO Mendoza Family Provider Advanced Stockbroking Dealer Address: [address] [place] [address] [address], [place], [address] Email: [email or web address] TAIWO Valdez Attending Provider Non-Staff Referring Provider Address: [facility], [address] [place] [address], [place], [address] Email: OT Outpatient OT Outpatient Adult Evaluation Start: 08/17/22 13:21 Freq: Status: Active Protocol: Document 08/17/22 13:22 [facility] (Rec: 08/17/22 13:35 [facility] [id number]) General Information - Adult Session Time Visit Start Time 09:45 Visit Stop Time 10:15 Total Visit Minutes 30 Setting Treatment Setting Outpatient Care Visit Type Note Type Initial Evaluation Assessment/Plan Assessment Treatment Assessment is a 51 year-old right hand dominant female presenting post- hospitalization at [facility] d/t idiopathic transverse myelitis T10; was discharged home 07/03/22 from [facility] with assist of her . She is currently on Medical Leave and is expected to return to work on 09/10/22. PLOF = Independent with BADLS and IADLS, including driving. is currently utilizing a tub/shower chair in her tub/ shower combo which is also equipped with single grab bar and HSH for bathing; she is using hair removal gel versus shaving of her legs. denied use of any other AE at this time with completion of ADLs. She is familiar with modified distal LE dressing techniques including lying down/crossing of leg over opposite leg versus trunk flexion which leads to tension in lower back. She presents with B UE AROM WNL w/ good overall strength of shoulders, elbows, hands. Given good UE strength, ROM, and ability to execute BADLS independently ( utilizing AE and modified techniques) recommend d/c from outpatient OT w/ recommendation to cont w/ outpatient PT and consider driving rehabilitation w/ alternative OT who is skilled in this area; handout was provided for closest geographical locations (e.g., ) for driving rehabilitation . Plan Patient Recommendations Discharge from Occupational Therapy Functional Wrist/Hand Scan Hand Side Sensory Assessment Sensory Profile2
== END 2022-08-20 15:57 | disposition home or self-care (01) ==
LOC: OT 09:28
PROVIDERS: Family Provider Nurse Practitioner Family; PCP Student in an Organized Health Care Education/Training Program; Referring Provider Nurse Practitioner; Visit Provider Nurse Practitioner
DX: R29.898 Other symptoms and signs involving the musculoskeletal system (principal); G95.9 Disease of spinal cord, unspecified; G82.20 Paraplegia, unspecified
CPT/HCPCS: 97165

== ENCOUNTER 2022-10-10 15:00 | Outpatient (RCR) | payer OTHER, SELFPAY ==
--- NOTE | 2022-08-01 17:11 | PT.OIE ---
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 (08/01/22) Past Medical History (Last Updated 07/31/22 @ 16:00 by Greg Portillo MD) Allergies (~1997) Anxiety (~2005) Asthma (~2019) Celiac disease (~2004) Depression (~2002) GERD (gastroesophageal reflux disease) (~2014) Headache Malaria (~1983) Migraines Moderate mixed hyperlipidemia not requiring statin therapy Mumps (~1979) Paralysis Past Surgical History (Last Updated 07/30/22 @ 19:15 by Calista Nickerson) Anesthesia History of appendectomy (~1988) History of section (~2002) History of cholecystectomy (~1990) History of hip surgery (~2017) History of hysterectomy (~2016) History of surgery (~1997) History of vulvar vestibulectomy (~2001) Visit Care Team Role Provider Type Greg Portillo MD Primary Care Provider Physician Specialty: Internal Medicine Address: [address] [place] [address] Email: [email or web address] TAIWO Mendoza Attending Provider Advanced [employer] Family Provider Referring Provider Specialty: Medical Address: [address] [place] [address], [facility] Email: [email or web address] Physical Therapy Initial Evaluation PT-OP-A Visit Information Start: 07/31/22 17:00 Freq: Status: Active Protocol: Document 08/01/22 08:14 [facility] (Rec: 08/01/22 08:59 [facility] [id number]) Out-Patient Physical Therapy Visit Information Visit Information Visit Type Initial Evaluation Visit Start Time 08:15 Visit Stop Time 09:00 Total Visit Minutes 45 Visit Number 1 Evaluation Information Evaluation Date 08/01/22 PT-OP-B Current Condition Start: 07/31/22 17:00 Freq: Status: Active Protocol: Document 08/01/22 08:14 [facility] (Rec: 08/01/22 08:59 [facility] [id number]) Current Condition History of Current Condition Onset Date 06/08/22 Current Complaints weakness History of Current Condition Started having weakness acutely 06/08/22 with no known cause. Seen at ER in [place] , sent to [facility] for evaluation and treatment. [facility] 06/08/22-07/03/22. Imaging revealed inflammation and demyelination T10 cause unknown, medical staff unable to give prognosis. Had PT, steroids, IVIG. Since discharge home has been doing exercises, walking with 4WW, wearing AFO left LE. Now having medial thigh pain dewayne like something is puching up on the muscles there. Sent home with HEP, assist. Now c/o tingling and numbness mid thigh down, recently pain front of ankles dewayne, medial thigh pain, pain T10, lumbar spine, dewayne buttocks. Has been taking 1000 mg Tylenol when goes to bed, muscle spasms and pain in groin gets worse at night. Hasn't tried ice or heat. HIstory of LBP in April 2022 top of hip bones, had MRI and saw technical documentation specialist; was told to lose weight, exercise, don't come back until you have sciatica. MRI at [facility] showed mostly mild degeneration throughout spine, and bulges lumbar spine. Is walking as much as she can with 4WW, 30 min at a time. Practicing on stairs 5 stairs at a time x 4 max, tapping foot on soup can, heel/toe taps, sit to stand, shoulder exercises. Wears AFO left. Uses shower/tub chair, dresses self, has control of bladder and bowels. Hopeful to be able to walk without a device again. Prior Treatments and Tests PT, IGIV and steroids in hospital. Treatment Goals Patient/Caregiver Goals Return to prior level of function; walk independently, drive. 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 Right now gets very tired easily. Return to work date put in currently for September 09. 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 Baseline Function- Recreation/Hobbies no limitations Current Functional Impairments (Reported) Functional Limitations- ADL's modfified independent, uses bath/shower chair Functional Limitations- Mobility/Gait ambulates independently with 4WW, AFO left Functional Limitations- Work/School off work, return to work anticipated for September 09 Functional Limitations- Recreation/ unable Hobbies PT-OP-C Subjective Start: 07/31/22 17:00 Freq: Status: Active Protocol: Document 08/01/22 08:14 [facility] (Rec: 08/01/22 17:10 [facility] [id number]) OP-PT Pain Assessment Pain Assessment Grid Paper Pain Assessment Grid Completed Yes Location t/s,l/s, dewayne buttocks, bilateral LE's, ant ankles Intensity 7 Description Aching,Cramping,Shooting Frequency Frequent Home Pain Medication Use Pain Medications Used Yes Home Pain Medication Frequency at bedtime PT-OP-D Balance Start: 07/31/22 17:00 Freq: Status: Active Protocol: Document 08/01/22 08:14 [facility] (Rec: 08/01/22 08:59 [facility] [id number]) OP-PT Balance Assessment Sitting Balance Static Sitting Balance Ability Good Dynamic Sitting Balance Ability Good Ibrahim Balance Assessment Evaluation Sitting to Standing Ability Independent w/out Hands Unsupported Stance Safely- 2 minutes Sitting Unsupported, Feet on Floor Safely- 2 minutes Standing to Sitting Ability Safely, Minimal Hand Use Transfer Ability Safely, Minimal Hand Use Unsupported Stance- Eyes Closed Supervision, 10 seconds Unsupported Stance- Eyes Open Independent, 1 minute Pick- Up Object From Floor Supervision Look Behind Shoulder - Standing Turns Sideways Only Turning 360 Degrees Turns slowly, but safely Unsupported Tandem Stance Assist to Step-15 seconds Unilateral Leg Stance Lifts Leg/Holds 5-10 secs Total Score Ibrahim Total Score (out of 56 points) 38 Pearce Fall Scale Assessment History of Falling (Immediate or No Previous) Secondary Diagnosis (More Than 2 Medical No Diagnoses in Chart) Ambulatory Aid Crutches/cane/walker Gait/Transferring Weak Mental Status Oriented to own ability Copyright Permission PT-OP-G Mobility & Gait Start: 07/31/22 17:00 Freq: Status: Active Protocol: Document 08/01/22 08:14 [facility] (Rec: 08/01/22 17:10 [facility] [id number]) OP Mobility Evaluation Transfers Sit to Stand without UE's OP Gait Assessment Gait Gait Assistance Required: Independent Distance (Feet) 100 Assistive Devices Assistive Device Front Wheeled Walker Orthotic/Prosthetic Devices or Brace: Yes Gait Deviations General Gait Pattern Ataxic,Decreased Stride Length ,Decreased Feet Clearance Factors Limiting Gait Function Factors Limiting Gait Function Abnormal Tonal Influences, Decreased Sensation,Decreased Strength,Poor Balance Stair Climbing Evaluation Evaluation Level of Assist On Stairs Contact Guard Assistance Devices Stair Climbing Assistive Devices Right Railing Technique/Endurance Stair Climbing Direction Ascend and Descend Stair Climbing Technique Step Over Step Stair Climbing Set # Repetitions (reps) 1 Comments Stair Climbing Comments some difficulty with foot placement PT-OP-H Neuro Start: 07/31/22 17:00 Freq: Status: Active Protocol: Document 08/01/22 08:14 [facility] (Rec: 08/01/22 17:10 [facility] [id number]) Sensation Evaluation Gross Sensation Gross Sensation Left LE Impaired,Right LE Impaired Sensation Description Paresthesia,Numbness,Tingling, [place] Location Details Leg Light Touch Intact/Normal Proprioception (Position) Impaired Kinesthesia (Movement) Impaired Coordination Evaluation Lower Extremity Tests Right Heel on [place]ozoya Test Moderate Impairment Foot Tapping Test Moderate Impairment Drawing a [place] w/Foot Test Minimal Impairment PT-OP-K Range of Motion Start: 07/31/22 17:00 Freq: Status: Active Protocol: Document 08/01/22 08:14 [facility] (Rec: 08/01/22 17:10 [facility] [id number]) Cervical Spine Range of Motion Cervical Spine Active Testing Position Sitting Comments WFL PT-OP-M Strength Start: 07/31/22 17:00 Freq: Status: Active Protocol: Document 08/01/22 08:14 [facility] (Rec: 08/01/22 08:59 [facility] [id number]) Hip Strength Hip Manual Muscle Testing Right Flexion (L2) 4+ Good+ Abduction 4 Good External Rotation 4- Good- Internal Rotation 4- Good- Left Flexion (L2) 4- Good- Extension (S1) 4- Good- Abduction 4- Good- External Rotation 3+ Fair+ Internal Rotation 4- Good- Knee Strength Knee Manual Muscle Testing Right Flexion (S2) 4+ Good+ Extension (L3) 4 Good Left Flexion (S2) 4- Good- Extension (L3) 4 Good Ankle/Foot Strength Ankle and Foot Manual Muscle Testing Right Dorsiflexion (L4) 4 Good Plantarflexion (S1) 4 Good Left Dorsiflexion (L4) 4- Good- Plantarflexion (S1) 4 Good PT-OP-Q Treatments Start: 07/31/22 17:00 Freq: Status: Active Protocol: Document 08/01/22 08:14 [facility] (Rec: 08/01/22 17:10 [facility] [id number]) Self-Care/Home Management Treatment Education Patient Education Home Exercise Program Other Education Feel patient safe to ambulate without AFO, begin gait training at home with cane PT-OP-T Assessment and Plan Start: 07/31/22 17:00 Freq: Status: Active Protocol: Document 08/01/22 08:14 [facility] (Rec: 08/01/22 17:10 [facility] [id number]) Physical Therapy Assessment Rehab Potential Rehabilitation Potential Good Evaluation Complexity Number of Personal Factors/Comorbidities 1-2 Number of Body Systems Impaired 3 Clinical Presentation at Evaluation Evolving Impairments Impairments Activity Tolerance,Balance, Coordination,Gait,Pain, Strength Goals Four Impairment pain thoracic and lumbar spines, dewayne LE's Impairment 10/15 Short Term Goal (STG) Decrease by at least 50% with all usual activities STG Duration 08/31/22 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 LTG Duration 10/31/22 Three Impairment gait dysfunction Impairment ambulates with 4WW wearing AFO left LE step-to pattern on stairs using 1 rail Short Term Goal (STG) Patient will be able to ambulate safely on level surfaces indoors and outdoors safely STG Duration 08/31/22 Nursing Home Goal (LTG) Patient will be able to ambulate safely on all surfaces with LRD, and ascend/ descend stairs with alternating pattern. LTG Duration 10/31/22 Two Impairment balance dysfunction Impairment Ibrahim balance score 38/56 Short Term Goal (STG) Improve Ibarhim balance score to at least 45/56 STG Duration 08/31/22 Kiln Door Builder Goal (LTG) Improve Ibrahim balance score to at least 50/56 as measure of improved function and safety LTG Duration 10/31/22 One Impairment weakness dewayne LE's and core Short Term Goal (STG) Patient to be instructed in HEP to address strength deficits STG Duration 08/31/22 Nursing Home Goal (LTG) Patient will be independent and compliant with HEP and demonstrate improvement in LE and core muscle strength to at least 4+/5 to improve her functional mobility, safety and independence LTG Duration Assessment Summary Assessment Patient presents to PT s/p hospitalization at [facility] for diagnose of acute idiopathic transverse myelitis T10. Discharged home 07/03/22 on medications and issued HEP , assist of . She presents to PT today ambulating safely with 4WW and wearing AFO left. Baseline function is independente mobility without an assistive device or brace. Evaluation revealed weakness dewayne LE's and core, pain in thoracic and lumbar spines, dewayne LE's with numbness and tingling with pain as high as 7/10, requires Tylenol for sleep. She fatigues quickly, and has deficits in proprioception and kinesthetic sensation, with Ibrahim balance score of 38/56. Has muscle spasms in LE's requiring Baclofen; reports muscle spasms worse at night. Would benefit from PT to help her improve her strength, balance, gait and decrease her pain. POC was discussed and patient was in agreement Physical Therapy Plan Frequency and Duration Frequency of Treatment 2x/Week Duration of treatment (weeks) 12 Plan of Care Start Date 08/01/22 Plan of Care End Date 10/31/22 Therapeutic Interventions Therapeutic Interventions Balance Training,Gait Training ,Home Exercise Program,Manual Therapy,Neuromuscular Re- education,Patient/Caregiver Education,Self-Care/Home Management,Therapeutic Activities,Therapeutic Exercises Modalities Cold Pack/Ice Massage,Electric Stimulation,Hot Packs, Ultrasound Next Visit Focus/Plan Next Note Type Treatment Note Next Visit Plan Therapeutic exercise for strengthening, balance, coordination; issue written HEP. Gait training with cane without AFO. Modalities and manual therapy PRN pain.
--- NOTE | 2022-08-01 17:11 | PT.OPPOC ---
Physical, Occupational & Speech Therapy At [facility] 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 (08/01/22) Visit Care Team Role Provider Type Greg Portillo MD Primary Care Provider Physician Specialty: Internal Medicine Address: [address] [place] [address], [facility] [address], [address] Email: [email or web address] TAIWO Mendoza Attending Provider [employer] Family Provider Referring Provider Specialty: Medical Address: [address] [place] [address], [id number] Email: [email or web address] Plan Of Care PT-OP-T Assessment and Plan Start: 07/31/22 17:00 Freq: Status: Active Protocol: Document 08/01/22 08:14 [facility] (Rec: 08/01/22 17:10 [facility] [id number]) Physical Therapy Assessment Rehab Potential Rehabilitation Potential Good Evaluation Complexity Number of Personal Factors/Comorbidities 1-2 Number of Body Systems Impaired 3 Clinical Presentation at Evaluation Evolving Impairments Impairments Activity Tolerance,Balance, Coordination,Gait,Pain, Strength Goals Four Impairment pain thoracic and lumbar spines, dewayne LE's Impairment 10/15 Short Term Goal (STG) Decrease by at least 50% with all usual activities STG Duration 08/31/22 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 LTG Duration 10/31/22 Three Impairment gait dysfunction Impairment ambulates with 4WW wearing AFO left LE step-to pattern on stairs using 1 rail Short Term Goal (STG) Patient will be able to ambulate safely on level surfaces indoors and outdoors safely STG Duration 08/31/22 [facility] Goal (LTG) Patient will be able to ambulate safely on all surfaces with LRD, and ascend/ descend stairs with alternating pattern. LTG Duration 10/31/22 Two Impairment balance dysfunction Impairment Ibrahim balance score 38/56 Short Term Goal (STG) Improve Ibrahim balance score to at least 45/56 STG Duration 08/31/22 [facility] Goal (LTG) Improve Ibrahim balance score to at least 50/56 as measure of improved function and safety LTG Duration 10/31/22 One Impairment weakness dewayne LE's and core Short Term Goal (STG) Patient to be instructed in HEP to address strength deficits STG Duration 08/31/22 [facility] Goal (LTG) Patient will be independent and compliant with HEP and demonstrate improvement in LE and core muscle strength to at least 4+/5 to improve her functional mobility, safety and independence LTG Duration Assessment Summary Assessment Patient presents to PT s/p hospitalization at [facility] for diagnose of acute idiopathic transverse myelitis T10. Discharged home 07/03/22 on medications and issued HEP , assist of . She presents to PT today ambulating safely with 4WW and wearing AFO left. Baseline function is independente mobility without an assistive device or brace. Evaluation revealed weakness dewayne LE's and core, pain in thoracic and lumbar spines, dewayne LE's with numbness and tingling with pain as high as 7/10, requires Tylenol for sleep. She fatigues quickly, and has deficits in proprioception and kinesthetic sensation, with Ibrahim balance score of 38/56. Has muscle spasms in LE's requiring Baclofen; reports muscle spasms worse at night. Would benefit from PT to help her improve her strength, balance, gait and decrease her pain. POC was discussed and patient was in agreement Physical Therapy Plan Frequency and Duration Frequency of Treatment 2x/Week Duration of treatment (weeks) 12 Plan of Care Start Date 08/01/22 Plan of Care End Date 10/31/22 Therapeutic Interventions Therapeutic Interventions Balance Training,Gait Training ,Home Exercise Program,Manual Therapy,Neuromuscular Re- education,Patient/Caregiver Education,Self-Care/Home Management,Therapeutic Activities,Therapeutic Exercises Modalities Cold Pack/Ice Massage,Electric Stimulation,Hot Packs, Ultrasound Next Visit Focus/Plan Next Note Type Treatment Note Next Visit Plan Therapeutic exercise for strengthening, balance, coordination; issue written HEP. Gait training with cane without AFO. Modalities and manual therapy PRN pain. Plan of Care Dates Plan of Care Start Date 08/01/22 Plan of Care End Date 10/31/22 Electronically Signed by: Kaylyn Frank, PT 08/01/22 8086 If you are in agreement with this Plan of Care, please return a signed and dated copy. I have reviewed this Plan of Care and certify that the skilled therapy services above are required to meet the patient?s needs. Physician Signature Date Printed Name and Credentials Clinical Instructor Signature Printed Name and Credentials
--- NOTE | 2022-08-02 13:36 | PT.OTN ---
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 (08/02/22) Physical Therapy Treatment Note PT-OP-A Visit Information Start: 07/31/22 17:00 Freq: Status: Active Protocol: Document 08/02/22 10:31 SAK (Rec: 08/02/22 11:12 [facility] [id number]) Out-Patient Physical Therapy Visit Information Visit Information Visit Type Treatment Note Visit Start Time 09:45 Visit Stop Time 10:35 Total Visit Minutes 50 Visit Number 2 PT-OP-B Current Condition Start: 07/31/22 17:00 Freq: Status: Active Protocol: Document 08/02/22 10:31 SAK (Rec: 08/02/22 11:12 SAK [id number]) Current Condition History of Current Condition Onset Date 06/08/22 Current Complaints weakness History of Current Condition Started having weakness acutely 06/08/22 with no known cause. Seen at ER in [place] , sent to [facility] for evaluation and treatment. [facility] 06/08/22-07/03/22. Imaging revealed inflammation and demyelination T10 cause unknown, medical staff unable to give prognosis. Had PT, steroids, IVIG. Since discharge home has been doing exercises, walking with 4WW, wearing AFO left LE. Now having medial thigh pain dewayne like something is puching up on the muscles there. Sent home with [facility], assist. Now c/o tingling and numbness mid thigh down, recently pain front of ankles dewayne, medial thigh pain, pain T10, lumbar spine, dewayne buttocks. Has been taking 1000 mg Tylenol when goes to bed, muscle spasms and pain in groin gets worse at night. Hasn't tried ice or heat. HIstory of LBP in April 2022 top of hip bones, had MRI and saw property management specialist; was told to lose weight, exercise, don't come back until you have sciatica. MRI at [facility] showed mostly mild degeneration throughout spine, and bulges lumbar spine. Is walking as much as she can with 4WW, 30 min at a time. Practicing on stairs 5 stairs at a time x 4 max, tapping foot on soup can, heel/toe taps, sit to stand, shoulder exercises. Wears AFO left. Uses shower/tub chair, dresses self, has control of bladder and bowels. Hopeful to be able to walk without a device again. Prior Treatments and Tests PT, IGIV and steroids in hospital. Treatment Goals Patient/Caregiver Goals Return to prior level of function; walk independently, drive. 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 Right now gets very tired easily. Return to work date put in currently for September 09. PT-OP-C Subjective Start: 07/31/22 17:00 Freq: Status: Active Protocol: Document 08/02/22 10:31 SAK (Rec: 08/02/22 11:12 SAK [id number]) OP-PT Subjective Patient Comments Patient Comments Had appointment with rehab doctor, discussed how spasms can affecting bowel and bladder and visa versa. Doctor recommended stretching. Patient not wearing AFO now per PT recommendation. PT-OP-D Balance Start: 07/31/22 17:00 Freq: Status: Active Protocol: Document 08/01/22 08:14 SAK (Rec: 08/01/22 08:59 SAK [id number]) OP-PT Balance Assessment Sitting Balance Static Sitting Balance Ability Good Dynamic Sitting Balance Ability Good Ibrahim Balance Assessment Evaluation Sitting to Standing Ability Independent w/out Hands Unsupported Stance Safely- 2 minutes Sitting Unsupported, Feet on Floor Safely- 2 minutes Standing to Sitting Ability Safely, Minimal Hand Use Transfer Ability Safely, Minimal Hand Use Unsupported Stance- Eyes Closed Supervision, 10 seconds Unsupported Stance- Eyes Open Independent, 1 minute Pick- Up Object From Floor Supervision Look Behind Shoulder - Standing Turns Sideways Only Turning 360 Degrees Turns slowly, but safely Unsupported Tandem Stance Assist to Step-15 seconds Unilateral Leg Stance Lifts Leg/Holds 5-10 secs Total Score Ibrahim Total Score (out of 56 points) 38 Pearce Fall Scale Assessment History of Falling (Immediate or No Previous) Secondary Diagnosis (More Than 2 Medical No Diagnoses in Chart) Ambulatory Aid Crutches/cane/walker Gait/Transferring Weak Mental Status Oriented to own ability Copyright Permission PT-OP-G Mobility & Gait Start: 07/31/22 17:00 Freq: Status: Active Protocol: Document 08/01/22 08:14 SAK (Rec: 08/01/22 17:10 [facility] [id number]) OP Mobility Evaluation Transfers Sit to Stand without UE's OP Gait Assessment Gait Gait Assistance Required: Independent Distance (Feet) 100 Assistive Devices Assistive Device Front Wheeled Walker Orthotic/Prosthetic Devices or Brace: Yes Gait Deviations General Gait Pattern Ataxic,Decreased Stride Length ,Decreased Feet Clearance Factors Limiting Gait Function Factors Limiting Gait Function Abnormal Tonal Influences, Decreased Sensation,Decreased Strength,Poor Balance Stair Climbing Evaluation Evaluation Level of Assist On Stairs Contact Guard Assistance Devices Stair Climbing Assistive Devices Right Railing Technique/Endurance Stair Climbing Direction Ascend and Descend Stair Climbing Technique Step Over Step Stair Climbing Set # Repetitions (reps) 1 Comments Stair Climbing Comments some difficulty with foot placement PT-OP-H Neuro Start: 07/31/22 17:00 Freq: Status: Active Protocol: Document 08/01/22 08:14 [facility] (Rec: 08/01/22 17:10 [facility] [id number]) Sensation Evaluation Gross Sensation Gross Sensation Left LE Impaired,Right LE Impaired Sensation Description Paresthesia,Numbness,Tingling, [place]ins [place] Location Details Leg Light Touch Intact/Normal Proprioception (Position) Impaired Kinesthesia (Movement) Impaired Coordination Evaluation Lower Extremity Tests Right Heel on [place]oz[place] Test Moderate Impairment Foot Tapping Test Moderate Impairment Drawing a [place] w/Foot Test Minimal Impairment PT-OP-K Range of Motion Start: 07/31/22 17:00 Freq: Status: Active Protocol: Document 08/01/22 08:14 [facility] (Rec: 08/01/22 17:10 [facility] [id number]) Cervical Spine Range of Motion Cervical Spine Active Testing Position Sitting Comments WFL PT-OP-M Strength Start: 07/31/22 17:00 Freq: Status: Active Protocol: Document 08/01/22 08:14 [facility] (Rec: 08/01/22 08:59 [facility] [id number]) Hip Strength Hip Manual Muscle Testing Right Flexion (L2) 4+ Good+ Abduction 4 Good External Rotation 4- Good- Internal Rotation 4- Good- Left Flexion (L2) 4- Good- Extension (S1) 4- Good- Abduction 4- Good- External Rotation 3+ Fair+ Internal Rotation 4- Good- Knee Strength Knee Manual Muscle Testing Right Flexion (S2) 4+ Good+ Extension (L3) 4 Good Left Flexion (S2) 4- Good- Extension (L3) 4 Good Ankle/Foot Strength Ankle and Foot Manual Muscle Testing Right Dorsiflexion (L4) 4 Good Plantarflexion (S1) 4 Good Left Dorsiflexion (L4) 4- Good- Plantarflexion (S1) 4 Good PT-OP-Q Treatments Start: 07/31/22 17:00 Freq: Status: Active Protocol: Document 08/02/22 10:31 [facility] (Rec: 08/02/22 13:35 [facility] [id number]) Therapeutic Exercises Supine Exercises bridge Side bilateral Reps/Minutes 10x Comments start with core, gluteal set, gentle lift DKTC Side bilateral Reps/Minutes 30s x 2 SKTC Side bilateral Reps/Minutes 30s x 2 HS stretch Side bilateral Reps/Minutes 30s x 2 ball squeeze Reps/Minutes 10x Comments cues for core act Standing Exercises heel, toe raise Side bilateral Reps/Minutes 10x Gait Training Gait Activity SPC x 2 Level of Assistance SBA, cues Distance/Duration 120 ft Treatment Focus safety 6 min walk test Device Used SPC x 1 Level of Assistance CGA, cues Surface firm Distance/Duration 384 ft Treatment Focus safety, sequencing, speed Neuro Re-Education Treatment Balance Activities balance board Details f/b bal EO, EC, head turns Surface tiltboard Reps/Duration 3 min Self-Care/Home Management Treatment Education Patient Education Home Exercise Program,Safety Other Education issued written HO importance of core support for spine stressed pt letting PT know if activity inc pain, and what she most feels she needs to work on PT-OP-R Modalities Start: 07/31/22 17:00 Freq: Status: Active Protocol: Document 08/02/22 10:31 [facility] (Rec: 08/02/22 13:36 [facility] [id number]) Hot Pack/Cold Pack Treatment Hot Pack Patient Position Hooklying Treatment Duration (minutes) 15 Comments during supine ex PT-OP-T Assessment and Plan Start: 07/31/22 17:00 Freq: Status: Active Protocol: Document 08/02/22 10:31 [facility] (Rec: 08/02/22 11:12 [facility] [id number]) Physical Therapy Assessment Goals Four Impairment pain thoracic and lumbar spines, dewayne LE's Impairment 10/15 Short Term Goal (STG) Decrease by at least 50% with all usual activities STG Duration 08/31/22 Senior Living Goal (LTG) Decrease pain by at least 75% with all usual activities for improved activity and quality of life including ability to return to work with good tolerance. LTG Duration 10/31/22 Three Impairment gait dysfunction Impairment ambulates with 4WW wearing AFO left LE step-to pattern on stairs using 1 rail Short Term Goal (STG) Patient will be able to ambulate safely on level surfaces indoors and outdoors safely STG Duration 08/31/22 Senior Living Goal (LTG) Patient will be able to ambulate safely on all surfaces with LRD, and ascend/ descend stairs with alternating pattern. LTG Duration 10/31/22 Two Impairment balance dysfunction Impairment Ibrahim balance score 38/56 Short Term Goal (STG) Improve Ibrahim balance score to at least 45/56 STG Duration 08/31/22 Bus Matron Goal (LTG) Improve Ibrahim balance score to at least 50/56 as measure of improved function and safety LTG Duration 10/31/22 One Impairment weakness dewayne LE's and core Short Term Goal (STG) Patient to be instructed in HEP to address strength deficits [facility] Duration 08/31/22 Bus Matron Goal (LTG) Patient will be independent and compliant with HEP and demonstrate improvement in LE and core muscle strength to at least 4+/5 to improve her functional mobility, safety and independence LTG Duration Assessment Summary Assessment 6 min walk test 385 ft with SPC; gait training with cane with cues for sequencing and safety plus CGA, patient feels more comfortable with cane in right hand. Gait training with 2 SPC x 100 ft with SBA to CGA; slower but more safe with 2 canes. No LOB with either 1 or 2 SPC. Patient issued HEP HO, demonstrated good understanding. Physical Therapy Plan Frequency and Duration Frequency of Treatment 2x/Week Duration of treatment (weeks) 12 Plan of Care Start Date 08/01/22 Plan of Care End Date 10/31/22 Therapeutic Interventions Therapeutic Interventions Balance Training,Gait Training ,Home Exercise Program,Manual Therapy,Neuromuscular Re- education,Patient/Caregiver Education,Self-Care/Home Management,Therapeutic Activities,Therapeutic Exercises Modalities Cold Pack/Ice Massage,Electric Stimulation,Hot Packs, Ultrasound Next Visit Focus/Plan Next Note Type Treatment Note Next Visit Plan Continue gait training, balance training, strengthening LE's and core. Consider seated core ex on therapy ball. Walking all directions in parallel bars with dec UE support.
--- NOTE | 2022-08-06 11:43 | PT.OTN ---
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 (08/06/22) Physical Therapy Treatment Note PT-OP-A Visit Information Start: 07/31/22 17:00 Freq: Status: Active Protocol: Document 08/06/22 10:37 NBM (Rec: 08/06/22 11:40 NBM [id number]) Out-Patient Physical Therapy Visit Information Visit Information Visit Type Treatment Note Visit Start Time 10:38 Visit Stop Time 11:20 Total Visit Minutes 42 Visit Number 3 Number of REGISTERED SAFETY ENGINEER Visits 1 PT-OP-B Current Condition Start: 07/31/22 17:00 Freq: Status: Active Protocol: Document 08/02/22 10:31 SAK (Rec: 08/02/22 11:12 SAK [id number]) Current Condition History of Current Condition Onset Date 06/08/22 Current Complaints weakness History of Current Condition Started having weakness acutely 06/08/22 with no known cause. Seen at ER in [place] , sent to [facility] for evaluation and treatment. [facility] 06/08/22-07/03/22. Imaging revealed inflammation and demyelination T10 cause unknown, medical staff unable to give prognosis. Had PT, steroids, IVIG. Since discharge home has been doing exercises, walking with 4WW, wearing AFO left LE. Now having medial thigh pain dewayne like something is puching up on the muscles there. Sent home with [facility], assist. Now c/o tingling and numbness mid thigh down, recently pain front of ankles dewayne, medial thigh pain, pain T10, lumbar spine, dewayne buttocks. Has been taking 1000 mg Tylenol when goes to bed, muscle spasms and pain in groin gets worse at night. Hasn't tried ice or heat. HIstory of LBP in April 2022 top of hip bones, had MRI and saw pst specialist; was told to lose weight, exercise, don't come back until you have sciatica. MRI at [facility] showed mostly mild degeneration throughout spine, and bulges lumbar spine. Is walking as much as she can with 4WW, 30 min at a time. Practicing on stairs 5 stairs at a time x 4 max, tapping foot on soup can, heel/toe taps, sit to stand, shoulder exercises. Wears AFO left. Uses shower/tub chair, dresses self, has control of bladder and bowels. Hopeful to be able to walk without a device again. Prior Treatments and Tests PT, IGIV and steroids in hospital. Treatment Goals Patient/Caregiver Goals Return to prior level of function; walk independently, drive. 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 Right now gets very tired easily. Return to work date put in currently for September 09. PT-OP-C Subjective Start: 07/31/22 17:00 Freq: Status: Active Protocol: Document 08/06/22 10:37 NBM (Rec: 08/06/22 11:40 NBM [id number]) OP-PT Subjective Patient Comments Patient Comments Pt reports not wearing AFO now , and no pain. She states she did not receive one page of her HEP so wants to review. She uses F[employer] for walks outside of home for safety, and usually one SPC in home. PT-OP-D Balance Start: 07/31/22 17:00 Freq: Status: Active Protocol: Document 08/01/22 08:14 SAK (Rec: 08/01/22 08:59 SAK [id number]) OP-PT Balance Assessment Sitting Balance Static Sitting Balance Ability Good Dynamic Sitting Balance Ability Good Ibrahim Balance Assessment Evaluation Sitting to Standing Ability Independent w/out Hands Unsupported Stance Safely- 2 minutes Sitting Unsupported, Feet on Floor Safely- 2 minutes Standing to Sitting Ability Safely, Minimal Hand Use Transfer Ability Safely, Minimal Hand Use Unsupported Stance- Eyes Closed Supervision, 10 seconds Unsupported Stance- Eyes Open Independent, 1 minute Pick- Up Object From Floor Supervision Look Behind Shoulder - Standing Turns Sideways Only Turning 360 Degrees Turns slowly, but safely Unsupported Tandem Stance Assist to Step-15 seconds Unilateral Leg Stance Lifts Leg/Holds 5-10 secs Total Score Ibrahim Total Score (out of 56 points) 38 Pearce Fall Scale Assessment History of Falling (Immediate or No Previous) Secondary Diagnosis (More Than 2 Medical No Diagnoses in Chart) Ambulatory Aid Crutches/cane/walker Gait/Transferring Weak Mental Status Oriented to own ability Copyright Permission PT-OP-G Mobility & Gait Start: 07/31/22 17:00 Freq: Status: Active Protocol: Document 08/01/22 08:14 SAK (Rec: 08/01/22 17:10 SAK [id number]) OP Mobility Evaluation Transfers Sit to Stand without UE's OP Gait Assessment Gait Gait Assistance Required: Independent Distance (Feet) 100 Assistive Devices Assistive Device Front Wheeled Walker Orthotic/Prosthetic Devices or Brace: Yes Gait Deviations General Gait Pattern Ataxic,Decreased Stride Length ,Decreased Feet Clearance Factors Limiting Gait Function Factors Limiting Gait Function Abnormal Tonal Influences, Decreased Sensation,Decreased Strength,Poor Balance Stair Climbing Evaluation Evaluation Level of Assist On Stairs Contact Guard Assistance Devices Stair Climbing Assistive Devices Right Railing Technique/Endurance Stair Climbing Direction Ascend and Descend Stair Climbing Technique Step Over Step Stair Climbing Set # Repetitions (reps) 1 Comments Stair Climbing Comments some difficulty with foot placement PT-OP-H Neuro Start: 07/31/22 17:00 Freq: Status: Active Protocol: Document 08/01/22 08:14 [facility] (Rec: 08/01/22 17:10 [facility] [id number]) Sensation Evaluation Gross Sensation Gross Sensation Left LE Impaired,Right LE Impaired Sensation Description Paresthesia,Numbness,Tingling, Pins & [place] Location Details Leg Light Touch Intact/Normal Proprioception (Position) Impaired Kinesthesia (Movement) Impaired Coordination Evaluation Lower Extremity Tests Right Heel on [place]oz[place] Test Moderate Impairment Foot Tapping Test Moderate Impairment Drawing a [place] w/Foot Test Minimal Impairment PT-OP-K Range of Motion Start: 07/31/22 17:00 Freq: Status: Active Protocol: Document 08/01/22 08:14 [facility] (Rec: 08/01/22 17:10 [facility] [id number]) Cervical Spine Range of Motion Cervical Spine Active Testing Position Sitting Comments WFL PT-OP-M Strength Start: 07/31/22 17:00 Freq: Status: Active Protocol: Document 08/01/22 08:14 [facility] (Rec: 08/01/22 08:59 [facility] [id number]) Hip Strength Hip Manual Muscle Testing Right Flexion (L2) 4+ Good+ Abduction 4 Good External Rotation 4- Good- Internal Rotation 4- Good- Left Flexion (L2) 4- Good- Extension (S1) 4- Good- Abduction 4- Good- External Rotation 3+ Fair+ Internal Rotation 4- Good- Knee Strength Knee Manual Muscle Testing Right Flexion (S2) 4+ Good+ Extension (L3) 4 Good Left Flexion (S2) 4- Good- Extension (L3) 4 Good Ankle/Foot Strength Ankle and Foot Manual Muscle Testing Right Dorsiflexion (L4) 4 Good Plantarflexion (S1) 4 Good Left Dorsiflexion (L4) 4- Good- Plantarflexion (S1) 4 Good PT-OP-Q Treatments Start: 07/31/22 17:00 Freq: Status: Active Protocol: Document 08/06/22 10:37 NBM (Rec: 08/06/22 11:40 NBM [id number]) Therapeutic Exercises Supine Exercises bridge Side bilateral Reps/Minutes 10x Comments start with core, gluteal set, gentle lift, push through heels DKTC Side bilateral Reps/Minutes 30s x 2 SKTC Side bilateral Reps/Minutes 30s x 2 HS stretch Side bilateral Reps/Minutes 30s x 2 Comments w/ ankle pumps ball squeeze Reps/Minutes 10x Comments cues for core act Standing Exercises heel, toe raise Standing Exercise Name heel raise only - HEP Side bilateral Reps/Minutes 10x 5SH/2 breath cycles Comments pt c/o pain bottom of feet bilaterally end of set Gait Training Gait Activity SPC x 2 Level of Assistance SBA>CGA, cues Distance/Duration ~295 ft Treatment Focus safety, heel-toe, step length Comments seated rest break immediately after. Neuro Re-Education Treatment Balance Activities tandem stance Details bilateral w/ UE support - HEP Surface firm Equipment handrail Reps/Duration 2x30s / 8 breath cycles Comments cues for TrA and no breathholding - improves w/ cues for counting breath cycles instead of seconds. Self-Care/Home Management Treatment Education Patient Education Home Exercise Program,Safety Other Education HEP review - Pt is given missing pg 3 of HEP from 08/02 appt - tandem stance w/ UE support and heel raises. Pt instructed in self- monitoring of Transverse abdominus activation w/ BKFO ex with improved self- awareness. PT-OP-R Modalities Start: 07/31/22 17:00 Freq: Status: Active Protocol: Document 08/02/22 10:31 SAK (Rec: 08/02/22 13:36 SAK [id number]) Hot Pack/Cold Pack Treatment Hot Pack Patient Position Hooklying Treatment Duration (minutes) 15 Comments during supine ex PT-OP-T Assessment and Plan Start: 07/31/22 17:00 Freq: Status: Active Protocol: Document 08/06/22 10:37 NBM (Rec: 08/06/22 11:40 NB [id number]) Physical Therapy Assessment Impairments Impairments Activity Tolerance,Balance, Coordination,Gait,Pain, Strength Goals Four Impairment pain thoracic and lumbar spines, dewayne LE's Impairment 10/15 Short Term Goal (STG) Decrease by at least 50% with all usual activities STG Duration 08/31/22 Assisted Goal (LTG) Decrease pain by at least 75% with all usual activities for improved activity and quality of life including ability to return to work with good tolerance. LTG Duration 10/31/22 Three Impairment gait dysfunction Impairment ambulates with 4WW wearing AFO left LE step-to pattern on stairs using 1 rail Short Term Goal (STG) Patient will be able to ambulate safely on level surfaces indoors and outdoors safely STG Duration 08/31/22 Assisted Goal (LTG) Patient will be able to ambulate safely on all surfaces with LRD, and ascend/ descend stairs with alternating pattern. LTG Duration 10/31/22 Two Impairment balance dysfunction Impairment Ibrahim balance score 38/56 Short Term Goal (STG) Improve Ibrahim balance score to at least 45/56 STG Duration 08/31/22 Network Systems Analyst Goal (LTG) Improve Ibrahim balance score to at least 50/56 as measure of improved function and safety LTG Duration 10/31/22 One Impairment weakness dewayne LE's and core Short Term Goal (STG) Patient to be instructed in HEP to address strength deficits STG Duration 08/31/22 Network Systems Analyst Goal (LTG) Patient will be independent and compliant with HEP and demonstrate improvement in LE and core muscle strength to at least 4+/5 to improve her functional mobility, safety and independence LTG Duration Assessment Summary Assessment presents w/ 4WW and no AFO today, and brings two SPCs . Treatment focus on HEP review and gait training today . She requires occasional cues for no breathholding w/ ex's, and she does use heavy upper extremity support for tandem stance and single leg stance. Pt instructed in self- monitoring of Transverse abdominus activation w/ BKFO ex with improved self- awareness. She requires initial cues for gluteal activation and upright posture w/ SLS. Gait training with 2 SPC x 295 ft with SBA to CGA; slow pacing with focus on heel strike through toe push-off bilaterally - pt demonstrates smoother patterning and improved self-awarenes end of session. Pt was given missing pg 3 of HEP from 4/27 appt - tandem stance w/ UE support and heel raises. Physical Therapy Plan Frequency and Duration Frequency of Treatment 2x/Week Duration of treatment (weeks) 12 Plan of Care Start Date 08/01/22 Plan of Care End Date 10/31/22 Therapeutic Interventions Therapeutic Interventions Balance Training,Gait Training ,Home Exercise Program,Manual Therapy,Neuromuscular Re- education,Patient/Caregiver Education,Self-Care/Home Management,Therapeutic Activities,Therapeutic Exercises Modalities Cold Pack/Ice Massage,Electric Stimulation,Hot Packs, Ultrasound Next Visit Focus/Plan Next Note Type Treatment Note Next Visit Plan Continue gait training, balance training, strengthening LE's and core. Consider seated core ex on therapy ball. Walking all directions in parallel bars with dec UE support.
--- NOTE | 2022-08-09 16:41 | PT.OTN ---
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 Seen at ER in [place] , sent to [facility] for evaluation and treatment. [facility] 06/08/22-07/03/22. Imaging revealed inflammation and demyelination T10 cause unknown, medical staff unable to give prognosis. Had PT, steroids, IVIG. Since discharge home has been doing exercises, walking with 4WW, wearing AFO left LE. Now having medial thigh pain dewayne like something is puching up on the muscles there. Sent home with [facility], assist. Now c/o tingling and numbness mid thigh down, recently pain front of ankles dewayne, medial thigh pain, pain T10, lumbar spine, dewayne buttocks. Has been taking 1000 mg Tylenol when goes to bed, muscle spasms and pain in groin gets worse at night. Hasn't tried ice or heat. HIstory of LBP in April 2022 top of hip bones, had MRI and saw helpdesk specialist; was told to lose weight, exercise, don't come back until you have sciatica. MRI at [facility] showed mostly mild degeneration throughout spine, and bulges lumbar spine. Is walking as much as she can with 4WW, 30 min at a time. Practicing on stairs 5 stairs at a time x 4 max, tapping foot on soup can, heel/toe taps, sit to stand, shoulder exercises. Wears AFO left. Uses shower/tub chair, dresses self, has control of bladder and bowels. Hopeful to be able to walk without a device again. Prior Treatments and Tests PT, IGIV and steroids in hospital. Treatment Goals Patient/Caregiver Goals Return to prior level of function; walk independently, drive. 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 Right now gets very tired easily. Return to work date put in currently for September 09. PT-OP-C Subjective Start: 07/31/22 17:00 Freq: Status: Active Protocol: Document 08/09/22 10:59 SW (Rec: 08/09/22 11:45 SW [id number]) OP-PT Subjective Patient Comments Patient Comments Pt reports stretches have been helping. She notices stiffness in the moring. She has been using x2 spc when ambulating at home. PT-OP-D Balance Start: 07/31/22 17:00 Freq: Status: Active Protocol: Document 08/01/22 08:14 SAK (Rec: 08/01/22 08:59 SAK [id number]) OP-PT Balance Assessment Sitting Balance Static Sitting Balance Ability Good Dynamic Sitting Balance Ability Good Ibrahim Balance Assessment Evaluation Sitting to Standing Ability Independent w/out Hands Unsupported Stance Safely- 2 minutes Sitting Unsupported, Feet on Floor Safely- 2 minutes Standing to Sitting Ability Safely, Minimal Hand Use Transfer Ability Safely, Minimal Hand Use Unsupported Stance- Eyes Closed Supervision, 10 seconds Unsupported Stance- Eyes Open Independent, 1 minute Pick- Up Object From Floor Supervision Look Behind Shoulder - Standing Turns Sideways Only Turning 360 Degrees Turns slowly, but safely Unsupported Tandem Stance Assist to Step-15 seconds Unilateral Leg Stance Lifts Leg/Holds 5-10 secs Total Score Ibrahim Total Score (out of 56 points) 38 Pearce Fall Scale Assessment History of Falling (Immediate or No Previous) Secondary Diagnosis (More Than 2 Medical No Diagnoses in Chart) Ambulatory Aid Crutches/cane/walker Gait/Transferring Weak Mental Status Oriented to own ability Copyright Permission PT-OP-G Mobility & Gait Start: 07/31/22 17:00 Freq: Status: Active Protocol: Document 08/01/22 08:14 SAK (Rec: 08/01/22 17:10 SAK [id number]) OP Mobility Evaluation Transfers Sit to Stand without UE's OP Gait Assessment Gait Gait Assistance Required: Independent Distance (Feet) 100 Assistive Devices Assistive Device Front Wheeled Walker Orthotic/Prosthetic Devices or Brace: Yes Gait Deviations General Gait Pattern Ataxic,Decreased Stride Length ,Decreased Feet Clearance Factors Limiting Gait Function Factors Limiting Gait Function Abnormal Tonal Influences, Decreased Sensation,Decreased Strength,Poor Balance Stair Climbing Evaluation Evaluation Level of Assist On Stairs Contact Guard Assistance Devices Stair Climbing Assistive Devices Right Railing Technique/Endurance Stair Climbing Direction Ascend and Descend Stair Climbing Technique Step Over Step Stair Climbing Set # Repetitions (reps) 1 Comments Stair Climbing Comments some difficulty with foot placement PT-OP-H Neuro Start: 07/31/22 17:00 Freq: Status: Active Protocol: Document 08/01/22 08:14 [facility] (Rec: 08/01/22 17:10 [facility] [id number]) Sensation Evaluation Gross Sensation Gross Sensation Left LE Impaired,Right LE Impaired Sensation Description Paresthesia,Numbness,Tingling, Pins & [place] Location Details Leg Light Touch Intact/Normal Proprioception (Position) Impaired Kinesthesia (Movement) Impaired Coordination Evaluation Lower Extremity Tests Right Heel on Lozoya Test Moderate Impairment Foot Tapping Test Moderate Impairment Drawing a [place] w/Foot Test Minimal Impairment PT-OP-K Range of Motion Start: 07/31/22 17:00 Freq: Status: Active Protocol: Document 08/01/22 08:14 [facility] (Rec: 08/01/22 17:10 [facility] [id number]) Cervical Spine Range of Motion Cervical Spine Active Testing Position Sitting Comments WFL PT-OP-M Strength Start: 07/31/22 17:00 Freq: Status: Active Protocol: Document 08/01/22 08:14 [facility] (Rec: 08/01/22 08:59 [facility] [id number]) Hip Strength Hip Manual Muscle Testing Right Flexion (L2) 4+ Good+ Abduction 4 Good External Rotation 4- Good- Internal Rotation 4- Good- Left Flexion (L2) 4- Good- Extension (S1) 4- Good- Abduction 4- Good- External Rotation 3+ Fair+ Internal Rotation 4- Good- Knee Strength Knee Manual Muscle Testing Right Flexion (S2) 4+ Good+ Extension (L3) 4 Good Left Flexion (S2) 4- Good- Extension (L3) 4 Good Ankle/Foot Strength Ankle and Foot Manual Muscle Testing Right Dorsiflexion (L4) 4 Good Plantarflexion (S1) 4 Good Left Dorsiflexion (L4) 4- Good- Plantarflexion (S1) 4 Good PT-OP-Q Treatments Start: 07/31/22 17:00 Freq: Status: Active Protocol: Document 08/09/22 10:59 SW (Rec: 08/09/22 11:45 [id number]) Therapeutic Exercises Supine Exercises BKFO Supine Exercise Name Bent Knee Fallout w/ PPT & TrA Side bilateral Reps/Minutes x10 ea Comments self-monitoring for TrA medial to ASIS bridge Side bilateral Reps/Minutes 10x Comments start with core, gluteal set, gentle lift, push through heels DKTC Side bilateral Reps/Minutes 30s x 2 SKTC Side bilateral Reps/Minutes 30s x 2 HS stretch Side bilateral Reps/Minutes 30s x 2 Comments w/ ankle pumps ball squeeze Reps/Minutes 10x Comments cues for core act Sitting Exercises Seated Therapy Ball Sitting Exercise Name w/TA activation, reciprical BUE raises. Reps/Minutes Seated balance> x 4 reciprical UE raises Comments vc for TA engagement/breath work Gait Training Gait Activity SPC x 2 Level of Assistance SBA>CGA, cues Distance/Duration ~295 ft Treatment Focus safety, heel-toe, step length Comments seated rest break immediately after. Step length improved w/ repetition. Neuro Re-Education Treatment Balance Activities WBOS/NBOS Details WBOS/NBOS w/ head turns Surface firm Equipment 4WW CONCILIATOR prn Marches Details Marches Surface firm Equipment 4WW CONCILIATOR prn Comments vc for weight shifting, slow and controlled tandem stance Details bilateral w/ UE support Surface firm Equipment 4WW light touch>no touch Reps/Duration 2x30s Comments cues for TrA and no breathholding PT-OP-R Modalities Start: 07/31/22 17:00 Freq: Status: Active Protocol: Document 08/09/22 10:59 SW (Rec: 08/09/22 16:41 [id number]) Hot Pack/Cold Pack Treatment Hot Pack Patient Position Hooklying Treatment Duration (minutes) 15 Comments Supine, Lumbarthoracic, 6 layers, hernández within reach PT-OP-T Assessment and Plan Start: 07/31/22 17:00 Freq: Status: Active Protocol: Document 08/09/22 10:59 SW (Rec: 08/09/22 11:45 [id number]) Physical Therapy Assessment Goals Four Impairment pain thoracic and lumbar spines, dewayne LE's Impairment 7/10 Short Term Goal (STG) Decrease by at least 50% with all usual activities STG Duration 08/31/22 Mcc Goal (LTG) Decrease pain by at least 75% with all usual activities for improved activity and quality of life including ability to return to work with good tolerance. LTG Duration 10/31/22 Three Impairment gait dysfunction Impairment ambulates with 4WW wearing AFO left LE step-to pattern on stairs using 1 rail Short Term Goal (STG) Patient will be able to ambulate safely on level surfaces indoors and outdoors safely STG Duration 08/31/22 Mcc Goal (LTG) Patient will be able to ambulate safely on all surfaces with LRD, and ascend/ descend stairs with alternating pattern. 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 Pt challenged with seated balance /strength exercises, vc for trunk stability/breath work. Challenged in tandem standing, min CONCILIATOR in 4WW, ankle/knee strategies activated. Gait training mod cueing required for step length and heel strike, improved with repetition, pt demonstrated good reciprical gait with x2 spc. Physical Therapy Plan Frequency and Duration Frequency of Treatment 2x/Week Duration of treatment (weeks) 12 Plan of Care Start Date 08/01/22 Plan of Care End Date 10/31/22 Therapeutic Interventions Therapeutic Interventions Balance Training,Gait Training ,Home Exercise Program,Manual Therapy,Neuromuscular Re- education,Patient/Caregiver Education,Self-Care/Home Management,Therapeutic Activities,Therapeutic Exercises Modalities Cold Pack/Ice Massage,Electric Stimulation,Hot Packs, Ultrasound Next Visit Focus/Plan Next Note Type Treatment Note Next Visit Plan Continue gait training, balance training, strengthening LE's and core. Consider seated core ex on therapy ball. Walking all directions in parallel bars with dec UE support.
--- NOTE | 2022-08-13 15:59 | PT.OTN ---
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 (08/13/22) Physical Therapy Treatment Note PT-OP-A Visit Information Start: 07/31/22 17:00 Freq: Status: Active Protocol: Document 08/13/22 11:33 NBM (Rec: 08/13/22 13:16 NBM [id number]) Out-Patient Physical Therapy Visit Information Visit Information Visit Type Treatment Note Visit Start Time 11:35 Visit Stop Time 12:20 Total Visit Minutes 45 Visit Number 5 Number of AUTOMATION CLERK Visits 3 PT-OP-B Current Condition Start: 07/31/22 17:00 Freq: Status: Active Protocol: Document 08/02/22 10:31 SAK (Rec: 08/02/22 11:12 SAK [id number]) Current Condition History of Current Condition Onset Date 06/08/22 Current Complaints weakness History of Current Condition Started having weakness acutely 06/08/22 with no known cause. Seen at ER in [place] , sent to [facility] for evaluation and treatment. [facility] 06/08/22-07/03/22. Imaging revealed inflammation and demyelination T10 cause unknown, medical staff unable to give prognosis. Had PT, steroids, IVIG. Since discharge home has been doing exercises, walking with 4WW, wearing AFO left LE. Now having medial thigh pain dewayne like something is puching up on the muscles there. Sent home with [facility], assist. Now c/o tingling and numbness mid thigh down, recently pain front of ankles dewayne, medial thigh pain, pain T10, lumbar spine, dewayne buttocks. Has been taking 1000 mg Tylenol when goes to bed, muscle spasms and pain in groin gets worse at night. Hasn't tried ice or heat. HIstory of LBP in April 2022 top of hip bones, had MRI and saw material specialist; was told to lose weight, exercise, don't come back until you have sciatica. MRI at [facility] showed mostly mild degeneration throughout spine, and bulges lumbar spine. Is walking as much as she can with 4WW, 30 min at a time. Practicing on stairs 5 stairs at a time x 4 max, tapping foot on soup can, heel/toe taps, sit to stand, shoulder exercises. Wears AFO left. Uses shower/tub chair, dresses self, has control of bladder and bowels. Hopeful to be able to walk without a device again. Prior Treatments and Tests PT, IGIV and steroids in hospital. Treatment Goals Patient/Caregiver Goals Return to prior level of function; walk independently, drive. 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 Right now gets very tired easily. Return to work date put in currently for September 09. PT-OP-C Subjective Start: 07/31/22 17:00 Freq: Status: Active Protocol: Document 08/13/22 11:33 NBM (Rec: 08/13/22 13:16 NBM [id number]) OP-PT Subjective Patient Comments Patient Comments Pt reports stretching low back helps, still morning stiffness. She felt tired after last treatment she thinks due to balance challenge. PT-OP-D Balance Start: 07/31/22 17:00 Freq: Status: Active Protocol: Document 08/01/22 08:14 SAK (Rec: 08/01/22 08:59 SAK [id number]) OP-PT Balance Assessment Sitting Balance Static Sitting Balance Ability Good Dynamic Sitting Balance Ability Good Ibrahim Balance Assessment Evaluation Sitting to Standing Ability Independent w/out Hands Unsupported Stance Safely- 2 minutes Sitting Unsupported, Feet on Floor Safely- 2 minutes Standing to Sitting Ability Safely, Minimal Hand Use Transfer Ability Safely, Minimal Hand Use Unsupported Stance- Eyes Closed Supervision, 10 seconds Unsupported Stance- Eyes Open Independent, 1 minute Pick- Up Object From Floor Supervision Look Behind Shoulder - Standing Turns Sideways Only Turning 360 Degrees Turns slowly, but safely Unsupported Tandem Stance Assist to Step-15 seconds Unilateral Leg Stance Lifts Leg/Holds 5-10 secs Total Score Ibrahim Total Score (out of 56 points) 38 Pearce Fall Scale Assessment History of Falling (Immediate or No Previous) Secondary Diagnosis (More Than 2 Medical No Diagnoses in Chart) Ambulatory Aid Crutches/cane/walker Gait/Transferring Weak Mental Status Oriented to own ability Copyright Permission PT-OP-G Mobility & Gait Start: 07/31/22 17:00 Freq: Status: Active Protocol: Document 08/01/22 08:14 SAK (Rec: 08/01/22 17:10 SAK [id number]) OP Mobility Evaluation Transfers Sit to Stand without UE's OP Gait Assessment Gait Gait Assistance Required: Independent Distance (Feet) 100 Assistive Devices Assistive Device Front Wheeled Walker Orthotic/Prosthetic Devices or Brace: Yes Gait Deviations General Gait Pattern Ataxic,Decreased Stride Length ,Decreased Feet Clearance Factors Limiting Gait Function Factors Limiting Gait Function Abnormal Tonal Influences, Decreased Sensation,Decreased Strength,Poor Balance Stair Climbing Evaluation Evaluation Level of Assist On Stairs Contact Guard Assistance Devices Stair Climbing Assistive Devices Right Railing Technique/Endurance Stair Climbing Direction Ascend and Descend Stair Climbing Technique Step Over Step Stair Climbing Set # Repetitions (reps) 1 Comments Stair Climbing Comments some difficulty with foot placement PT-OP-H Neuro Start: 07/31/22 17:00 Freq: Status: Active Protocol: Document 08/01/22 08:14 [facility] (Rec: 08/01/22 17:10 [facility] [id number]) Sensation Evaluation Gross Sensation Gross Sensation Left LE Impaired,Right LE Impaired Sensation Description Paresthesia,Numbness,Tingling, Pins & [place] Location Details Leg Light Touch Intact/Normal Proprioception (Position) Impaired Kinesthesia (Movement) Impaired Coordination Evaluation Lower Extremity Tests Right Heel on [place]ozoya Test Moderate Impairment Foot Tapping Test Moderate Impairment Drawing a [place] w/Foot Test Minimal Impairment PT-OP-K Range of Motion Start: 07/31/22 17:00 Freq: Status: Active Protocol: Document 08/01/22 08:14 [facility] (Rec: 08/01/22 17:10 [facility] [id number]) Cervical Spine Range of Motion Cervical Spine Active Testing Position Sitting Comments WFL PT-OP-M Strength Start: 07/31/22 17:00 Freq: Status: Active Protocol: Document 08/01/22 08:14 [facility] (Rec: 08/01/22 08:59 [facility] [id number]) Hip Strength Hip Manual Muscle Testing Right Flexion (L2) 4+ Good+ Abduction 4 Good External Rotation 4- Good- Internal Rotation 4- Good- Left Flexion (L2) 4- Good- Extension (S1) 4- Good- Abduction 4- Good- External Rotation 3+ Fair+ Internal Rotation 4- Good- Knee Strength Knee Manual Muscle Testing Right Flexion (S2) 4+ Good+ Extension (L3) 4 Good Left Flexion (S2) 4- Good- Extension (L3) 4 Good Ankle/Foot Strength Ankle and Foot Manual Muscle Testing Right Dorsiflexion (L4) 4 Good Plantarflexion (S1) 4 Good Left Dorsiflexion (L4) 4- Good- Plantarflexion (S1) 4 Good PT-OP-Q Treatments Start: 07/31/22 17:00 Freq: Status: Active Protocol: Document 08/13/22 11:33 [facility] (Rec: 08/13/22 13:16 [facility] [id number]) Gym Equipment Therapeutic Ball sitting Ball Size/Color 65 cm green Body Position Sitting Comments 1. CW/CCW pelvic clocks 2. Hamstring stretch Therapeutic Exercises Sitting Exercises Seated Therapy Ball Sitting Exercise Name marches>heel raises w/TA activation, w/ reciprical BUE raises. Reps/Minutes Seated balance> x 10 reciprical UE raises Comments vc for TA engagement/breath work Gait Training Gait Activity no AD Description ambulating in // bars Device Used Gait Belt, // bars Level of Assistance CGA Surface level Distance/Duration 4x10 ft Treatment Focus increased step length, heel/ toe Comments seated rest break after SPC x 2 Device Used SPC x2 Level of Assistance SBA>CGA Distance/Duration ~295 ft Treatment Focus safety, step length, heel strike thru toe push-off, Comments seated rest break immediately after. Step length improved w/ repetition. Neuro Re-Education Treatment Balance Activities Corner Balance Details added to HEP Surface level Equipment corner, chair for UE support prn, Gait belt SBA Reps/Duration 30 sec ea Comments EO/EC: WBOS, NBOS, Staggered stance dewayne Self-Care/Home Management Treatment Education Patient Education Home Exercise Program,Safety Other Education Corner Balance progression ( NBOS, WBOS, Staggered) and BKFO added to HEP - HO given. PT-OP-R Modalities Start: 07/31/22 17:00 Freq: Status: Active Protocol: Document 08/13/22 11:33 [facility] (Rec: 08/13/22 13:16 [facility] [id number]) Hot Pack/Cold Pack Treatment Hot Pack Patient Position Hooklying Treatment Duration (minutes) 15 Patient Tolerance Good Comments LE bolster support, Lumbarthoracic, 6 layers, hernández within reach PT-OP-T Assessment and Plan Start: 07/31/22 17:00 Freq: Status: Active Protocol: Document 08/13/22 11:33 [facility] (Rec: 08/13/22 15:53 [facility] [id number]) Physical Therapy Assessment Impairments Impairments Activity Tolerance,Balance, Coordination,Gait,Pain, Strength Goals Four Impairment pain thoracic and lumbar spines, dewayne LE's Impairment 10/15 Short Term Goal (STG) Decrease by at least 50% with all usual activities STG Duration 08/31/22 Custodial Goal (LTG) Decrease pain by at least 75% with all usual activities for improved activity and quality of life including ability to return to work with good tolerance. LTG Duration 10/31/22 Three Impairment gait dysfunction Impairment ambulates with 4WW wearing AFO left LE step-to pattern on stairs using 1 rail Short Term Goal (STG) Patient will be able to ambulate safely on level surfaces indoors and outdoors safely STG Duration 08/31/22 Custodial Goal (LTG) Patient will be able to ambulate safely on all surfaces with LRD, and ascend/ descend stairs with alternating pattern. LTG Duration 10/31/22 Two Impairment balance dysfunction Impairment Ibrahim balance score 38/56 Short Term Goal (STG) Improve Ibrahim balance score to at least 45/56 STG Duration 08/31/22 [employer] General Goal (LTG) Improve Ibrahim balance score to at least 50/56 as measure of improved function and safety LTG Duration 10/31/22 One Impairment weakness dewayne LE's and core Short Term Goal (STG) Patient to be instructed in HEP to address strength deficits STG Duration 08/31/22 [employer] Goal (LTG) Patient will be independent and compliant with HEP and demonstrate improvement in LE and core muscle strength to at least 4+/5 to improve her functional mobility, safety and independence LTG Duration Assessment Summary Assessment presents w/ 4WW and no AFO today, and brings two SPCs . Treatment focus on continuing core stabilization and, balance and gait training w/ SPC x2. Pt is able to ambulate in parallel bars without UE support w/ cues for increased step length and heel strike through toe push- off. Self-awareness of lateral sway improves w/ cueing, but pt's UE is gaurded and possibly contributing to lateral sway due to no arm swing. Pt has smoother patterning with SPC x2 with similar cues for stride length and focus on heel-strike through toe push-off. With fatigue pt demonstrates increasing excessive hip external rotation. Corner Balance progression (NBOS, WBOS, Staggered) and BKFO added to HEP - HO given. Physical Therapy Plan Frequency and Duration Frequency of Treatment 2x/Week Duration of treatment (weeks) 12 Plan of Care Start Date 08/01/22 Plan of Care End Date 10/31/22 Therapeutic Interventions Therapeutic Interventions Balance Training,Gait Training ,Home Exercise Program,Manual Therapy,Neuromuscular Re- education,Patient/Caregiver Education,Self-Care/Home Management,Therapeutic Activities,Therapeutic Exercises Modalities Cold Pack/Ice Massage,Electric Stimulation,Hot Packs, Ultrasound Next Visit Focus/Plan Next Note Type Treatment Note Next Visit Plan Continue gait training, balance training, strengthening LE's and core. Consider seated core ex on therapy ball. Walking all directions in parallel bars with dec UE support.
--- NOTE | 2022-08-15 12:37 | PT.OTN ---
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 Seen at ER in [place] , sent to [facility] for evaluation and treatment. [facility] 06/08/22-07/03/22. Imaging revealed inflammation and demyelination T10 cause unknown, medical staff unable to give prognosis. Had PT, steroids, IVIG. Since discharge home has been doing exercises, walking with 4WW, wearing AFO left LE. Now having medial thigh pain dewayne like something is puching up on the muscles there. Sent home with [facility], assist. Now c/o tingling and numbness mid thigh down, recently pain front of ankles dewayne, medial thigh pain, pain T10, lumbar spine, dewayne buttocks. Has been taking 1000 mg Tylenol when goes to bed, muscle spasms and pain in groin gets worse at night. Hasn't tried ice or heat. HIstory of LBP in April 2022 top of hip bones, had MRI and saw service specialist; was told to lose weight, exercise, don't come back until you have sciatica. MRI at [facility] showed mostly mild degeneration throughout spine, and bulges lumbar spine. Is walking as much as she can with 4WW, 30 min at a time. Practicing on stairs 5 stairs at a time x 4 max, tapping foot on soup can, heel/toe taps, sit to stand, shoulder exercises. Wears AFO left. Uses shower/tub chair, dresses self, has control of bladder and bowels. Hopeful to be able to walk without a device again. Prior Treatments and Tests PT, IGIV and steroids in hospital. Treatment Goals Patient/Caregiver Goals Return to prior level of function; walk independently, drive. 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 Right now gets very tired easily. Return to work date put in currently for September 09. PT-OP-C Subjective Start: 07/31/22 17:00 Freq: Status: Active Protocol: Document 08/15/22 10:54 SW (Rec: 08/15/22 12:31 SW [id number]) OP-PT Subjective Patient Comments Patient Comments Pt reports stiffness in knees. She was able to do balance exercises at home. Back pain present with almost all activities, but stretches have been helping. PT-OP-D Balance Start: 07/31/22 17:00 Freq: Status: Active Protocol: Document 08/01/22 08:14 SAK (Rec: 08/01/22 08:59 SAK [id number]) OP-PT Balance Assessment Sitting Balance Static Sitting Balance Ability Good Dynamic Sitting Balance Ability Good Whitmore Balance Assessment Evaluation Sitting to Standing Ability Independent w/out Hands Unsupported Stance Safely- 2 minutes Sitting Unsupported, Feet on Floor Safely- 2 minutes Standing to Sitting Ability Safely, Minimal Hand Use Transfer Ability Safely, Minimal Hand Use Unsupported Stance- Eyes Closed Supervision, 10 seconds Unsupported Stance- Eyes Open Independent, 1 minute Pick- Up Object From Floor Supervision Look Behind Shoulder - Standing Turns Sideways Only Turning 360 Degrees Turns slowly, but safely Unsupported Tandem Stance Assist to Step-15 seconds Unilateral Leg Stance Lifts Leg/Holds 5-10 secs Total Score Whitmore Total Score (out of 56 points) 38 Pearce Fall Scale Assessment History of Falling (Immediate or No Previous) Secondary Diagnosis (More Than 2 Medical No Diagnoses in Chart) Ambulatory Aid Crutches/cane/walker Gait/Transferring Weak Mental Status Oriented to own ability Copyright Permission PT-OP-G Mobility & Gait Start: 07/31/22 17:00 Freq: Status: Active Protocol: Document 08/01/22 08:14 SAK (Rec: 08/01/22 17:10 SAK [id number]) OP Mobility Evaluation Transfers Sit to Stand without UE's OP Gait Assessment Gait Gait Assistance Required: Independent Distance (Feet) 100 Assistive Devices Assistive Device Front Wheeled Walker Orthotic/Prosthetic Devices or Brace: Yes Gait Deviations General Gait Pattern Ataxic,Decreased Stride Length ,Decreased Feet Clearance Factors Limiting Gait Function Factors Limiting Gait Function Abnormal Tonal Influences, Decreased Sensation,Decreased Strength,Poor Balance Comments Gait Comments 6 min walk test with FWW 375 ft Stair Climbing Evaluation Evaluation Level of Assist On Stairs Contact Guard Assistance Devices Stair Climbing Assistive Devices Right Railing Technique/Endurance Stair Climbing Direction Ascend and Descend Stair Climbing Technique Step Over Step Stair Climbing Set # Repetitions (reps) 1 Comments Stair Climbing Comments some difficulty with foot placement PT-OP-H Neuro Start: 07/31/22 17:00 Freq: Status: Active Protocol: Document 08/01/22 08:14 [facility] (Rec: 08/01/22 17:10 [facility] [id number]) Sensation Evaluation Gross Sensation Gross Sensation Left LE Impaired,Right LE Impaired Sensation Description Paresthesia,Numbness,Tingling, [place] Location Details Leg Light Touch Intact/Normal Proprioception (Position) Impaired Kinesthesia (Movement) Impaired Coordination Evaluation Lower Extremity Tests Right Heel on [place] Test Moderate Impairment Foot Tapping Test Moderate Impairment Drawing a [place] w/Foot Test Minimal Impairment PT-OP-K Range of Motion Start: 07/31/22 17:00 Freq: Status: Active Protocol: Document 08/01/22 08:14 [facility] (Rec: 08/01/22 17:10 [facility] [id number]) Cervical Spine Range of Motion Cervical Spine Active Testing Position Sitting Comments WFL PT-OP-M Strength Start: 07/31/22 17:00 Freq: Status: Active Protocol: Document 08/01/22 08:14 [facility] (Rec: 08/01/22 08:59 [facility] [id number]) Hip Strength Hip Manual Muscle Testing Right Flexion (L2) 4+ Good+ Abduction 4 Good External Rotation 4- Good- Internal Rotation 4- Good- Left Flexion (L2) 4- Good- Extension (S1) 4- Good- Abduction 4- Good- External Rotation 3+ Fair+ Internal Rotation 4- Good- Knee Strength Knee Manual Muscle Testing Right Flexion (S2) 4+ Good+ Extension (L3) 4 Good Left Flexion (S2) 4- Good- Extension (L3) 4 Good Ankle/Foot Strength Ankle and Foot Manual Muscle Testing Right Dorsiflexion (L4) 4 Good Plantarflexion (S1) 4 Good Left Dorsiflexion (L4) 4- Good- Plantarflexion (S1) 4 Good PT-OP-Q Treatments Start: 07/31/22 17:00 Freq: Status: Active Protocol: Document 08/15/22 10:54 SW (Rec: 08/15/22 12:31 SW [id number]) Therapeutic Exercises Sitting Exercises Seated Therapy Ball Sitting Exercise Name marches>heel raises w/TA activation, w/ reciprical BUE/ BLE raises. Reps/Minutes Seated balance> x 10 reciprical UE raises Comments vc for TA engagement/breath work Standing Exercises heel, toe raise Standing Exercise Name heel raise only - HEP Side bilateral Reps/Minutes 10x 5SH/2 breath cycles Comments pt c/o pain bottom of feet bilaterally end of set Gait Training Gait Activity no AD Description ambulating in // bars Device Used Gait Belt, // bars Level of Assistance CGA Surface level Distance/Duration 4x10 ft Treatment Focus increased step length, heel/ toe Comments seated rest break after SPC x 2 Device Used SPC x2 Level of Assistance SBA>CGA Distance/Duration ~295 ft Treatment Focus safety, step length, heel strike thru toe push-off, Comments seated rest break immediately after. Step length improved w/ repetition. 6 min walk test Comments 450 ft Neuro Re-Education Treatment Balance Activities Balance Tests Details Whitmore, TUG Comments Whitmore 51/56 TUG 23 sec Foam Details WBOS,NBOS Surface uneven Equipment // bars Reps/Duration 2 x 30 each PT-OP-R Modalities Start: 07/31/22 17:00 Freq: Status: Active Protocol: Document 08/13/22 11:33 NB (Rec: 08/13/22 13:16 NB [id number]) Hot Pack/Cold Pack Treatment Hot Pack Patient Position Hooklying Treatment Duration (minutes) 15 Patient Tolerance Good Comments LE bolster support, Lumbarthoracic, 6 layers, hernández within reach PT-OP-T Assessment and Plan Start: 07/31/22 17:00 Freq: Status: Active Protocol: Document 08/15/22 10:54 SW (Rec: 08/15/22 12:31 SW [id number]) Physical Therapy Assessment Rehab Potential Rehabilitation Potential Good Evaluation Complexity Number of Personal Factors/Comorbidities 1-2 Number of Body Systems Impaired 3 Clinical Presentation at Evaluation Evolving Impairments Impairments Activity Tolerance,Balance, Coordination,Gait,Pain, Strength Goals Four Impairment pain thoracic and lumbar spines, dewayne LE's Impairment 10/15 Short Term Goal (STG) Decrease by at least 50% with all usual activities STG Duration 08/31/22 Correction Goal (LTG) Decrease pain by at least 75% with all usual activities for improved activity and quality of life including ability to return to work with good tolerance. LTG Duration 10/31/22 Three Impairment gait dysfunction Impairment ambulates with 4WW wearing AFO left LE step-to pattern on stairs using 1 rail Short Term Goal (STG) Patient will be able to ambulate safely on level surfaces indoors and outdoors safely STG Duration 08/31/22 Correction Goal (LTG) Patient will be able to ambulate safely on all surfaces with LRD, and ascend/ descend stairs with alternating pattern. LTG Duration 10/31/22 Two Impairment balance dysfunction Impairment Whitmore balance score 38/56 Short Term Goal (STG) Improve Whitmore balance score to at least 45/56 Goal met 08/15/22 51/56 TUG STG Duration 08/31/22 Goal met 08/15/22 Satellite Communications Engineer Goal (LTG) Improve Whitmore balance score to at least 50/56 as measure of improved function and safety Goal met 08/15/22 51/56 LTG Duration 10/31/22 Goal met 08/15/22 One Impairment weakness dewayne LE's and core Short Term Goal (STG) Patient to be instructed in HEP to address strength deficits STG Duration 08/31/22 Satellite Communications Engineer Goal (LTG) Patient will be independent and compliant with HEP and demonstrate improvement in LE and core muscle strength to at least 4+/5 to improve her functional mobility, safety and independence LTG Duration Assessment Summary Assessment Treatment focus on continued core stabilization progression , gait training, and tests to assess progress toward goals WHITMORE/TUG/6 mwt. met her Whitmore Balance goal with a score of 51/56. was able to ambulate in // bars this session with decreased UE support (Venkat), increased step length and improved heal strike/toe off, VC required for trunk stability. Physical Therapy Plan Frequency and Duration Frequency of Treatment 2x/Week Duration of treatment (weeks) 12 Plan of Care Start Date 08/01/22 Plan of Care End Date 10/31/22 Therapeutic Interventions Therapeutic Interventions Balance Training,Gait Training ,Home Exercise Program,Manual Therapy,Neuromuscular Re- education,Patient/Caregiver Education,Self-Care/Home Management,Therapeutic Activities,Therapeutic Exercises Modalities Cold Pack/Ice Massage,Electric Stimulation,Hot Packs, Ultrasound Next Visit Focus/Plan Next Note Type Treatment Note Next Visit Plan Continue gait training, strengthening LE's and core. Consider seated core ex on therapy ball. Walking all directions in parallel bars with dec UE support.
--- NOTE | 2022-08-22 16:21 | PT.OTN ---
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 (08/22/22) Physical Therapy Treatment Note PT-OP-A Visit Information Start: 07/31/22 17:00 Freq: Status: Active Protocol: Document 08/22/22 14:01 SAK (Rec: 08/22/22 14:52 [facility] [id number]) Out-Patient Physical Therapy Visit Information Visit Information Visit Type Treatment Note Visit Start Time 14:02 Visit Stop Time 14:46 Total Visit Minutes 44 Visit Number 7 Number of CROP PICKER Visits 0 PT-OP-B Current Condition Start: 07/31/22 17:00 Freq: Status: Active Protocol: Document 08/02/22 10:31 SAK (Rec: 08/02/22 11:12 SAK [id number]) Current Condition History of Current Condition Onset Date 06/08/22 Current Complaints weakness History of Current Condition Started having weakness acutely 06/08/22 with no known cause. Seen at ER in [place] , sent to [facility] for evaluation and treatment. [facility] 06/08/22-07/03/22. Imaging revealed inflammation and demyelination T10 cause unknown, medical staff unable to give prognosis. Had PT, steroids, IVIG. Since discharge home has been doing exercises, walking with 4WW, wearing AFO left LE. Now having medial thigh pain dewayne like something is puching up on the muscles there. Sent home with [facility], assist. Now c/o tingling and numbness mid thigh down, recently pain front of ankles dewayne, medial thigh pain, pain T10, lumbar spine, dewayne buttocks. Has been taking 1000 mg Tylenol when goes to bed, muscle spasms and pain in groin gets worse at night. Hasn't tried ice or heat. HIstory of LBP in April 2022 top of hip bones, had MRI and saw import/export specialist; was told to lose weight, exercise, don't come back until you have sciatica. MRI at [facility] showed mostly mild degeneration throughout spine, and bulges lumbar spine. Is walking as much as she can with 4WW, 30 min at a time. Practicing on stairs 5 stairs at a time x 4 max, tapping foot on soup can, heel/toe taps, sit to stand, shoulder exercises. Wears AFO left. Uses shower/tub chair, dresses self, has control of bladder and bowels. Hopeful to be able to walk without a device again. Prior Treatments and Tests PT, IGIV and steroids in hospital. Treatment Goals Patient/Caregiver Goals Return to prior level of function; walk independently, drive. 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 Right now gets very tired easily. Return to work date put in currently for September 09. PT-OP-C Subjective Start: 07/31/22 17:00 Freq: Status: Active Protocol: Document 08/22/22 14:01 [facility] (Rec: 08/22/22 14:52 [facility] [id number]) OP-PT Subjective Patient Comments Patient Comments Groggy after taking 2 Gabapentin due to muscle spasms dewayne LE's last night. No spasms currently. Patient reports she attended virtual support group for transverse myelitis, found it helpful. Is supposed to return to work 09/10/22 37 hrs per week, she is concerned she won't have the stamina to work full days/ weeks, uncertain about driving . At this time reports her employer is unable to provide accomodation. PT-OP-D Balance Start: 07/31/22 17:00 Freq: Status: Active Protocol: Document 08/01/22 08:14 [facility] (Rec: 08/01/22 08:59 [facility] [id number]) OP-PT Balance Assessment Sitting Balance Static Sitting Balance Ability Good Dynamic Sitting Balance Ability Good Ibrahim Balance Assessment Evaluation Sitting to Standing Ability Independent w/out Hands Unsupported Stance Safely- 2 minutes Sitting Unsupported, Feet on Floor Safely- 2 minutes Standing to Sitting Ability Safely, Minimal Hand Use Transfer Ability Safely, Minimal Hand Use Unsupported Stance- Eyes Closed Supervision, 10 seconds Unsupported Stance- Eyes Open Independent, 1 minute Pick- Up Object From Floor Supervision Look Behind Shoulder - Standing Turns Sideways Only Turning 360 Degrees Turns slowly, but safely Unsupported Tandem Stance Assist to Step-15 seconds Unilateral Leg Stance Lifts Leg/Holds 5-10 secs Total Score Ibrahim Total Score (out of 56 points) 38 Pearce Fall Scale Assessment History of Falling (Immediate or No Previous) Secondary Diagnosis (More Than 2 Medical No Diagnoses in Chart) Ambulatory Aid Crutches/cane/walker Gait/Transferring Weak Mental Status Oriented to own ability Copyright Permission PT-OP-G Mobility & Gait Start: 07/31/22 17:00 Freq: Status: Active Protocol: Document 08/01/22 08:14 [facility] (Rec: 08/01/22 17:10 [facility] [id number]) OP Mobility Evaluation Transfers Sit to Stand without UE's OP Gait Assessment Gait Gait Assistance Required: Independent Distance (Feet) 100 Assistive Devices Assistive Device Front Wheeled Walker Orthotic/Prosthetic Devices or Brace: Yes Gait Deviations General Gait Pattern Ataxic,Decreased Stride Length ,Decreased Feet Clearance Factors Limiting Gait Function Factors Limiting Gait Function Abnormal Tonal Influences, Decreased Sensation,Decreased Strength,Poor Balance Comments Gait Comments 6 min walk test with FWW 375 ft Stair Climbing Evaluation Evaluation Level of Assist On Stairs Contact Guard Assistance Devices Stair Climbing Assistive Devices Right Railing Technique/Endurance Stair Climbing Direction Ascend and Descend Stair Climbing Technique Step Over Step Stair Climbing Set # Repetitions (reps) 1 Comments Stair Climbing Comments some difficulty with foot placement PT-OP-H Neuro Start: 07/31/22 17:00 Freq: Status: Active Protocol: Document 08/01/22 08:14 [facility] (Rec: 08/01/22 17:10 [facility] [id number]) Sensation Evaluation Gross Sensation Gross Sensation Left LE Impaired,Right LE Impaired Sensation Description Paresthesia,Numbness,Tingling, [place] & [place] Location Details Leg Light Touch Intact/Normal Proprioception (Position) Impaired Kinesthesia (Movement) Impaired Coordination Evaluation Lower Extremity Tests Right Heel on Lozoya Test Moderate Impairment Foot Tapping Test Moderate Impairment Drawing a Walker w/Foot Test Minimal Impairment PT-OP-K Range of Motion Start: 07/31/22 17:00 Freq: Status: Active Protocol: Document 08/01/22 08:14 [facility] (Rec: 08/01/22 17:10 [facility] [id number]) Cervical Spine Range of Motion Cervical Spine Active Testing Position Sitting Comments WFL PT-OP-M Strength Start: 07/31/22 17:00 Freq: Status: Active Protocol: Document 08/01/22 08:14 [facility] (Rec: 08/01/22 08:59 [facility] [id number]) Hip Strength Hip Manual Muscle Testing Right Flexion (L2) 4+ Good+ Abduction 4 Good External Rotation 4- Good- Internal Rotation 4- Good- Left Flexion (L2) 4- Good- Extension (S1) 4- Good- Abduction 4- Good- External Rotation 3+ Fair+ Internal Rotation 4- Good- Knee Strength Knee Manual Muscle Testing Right Flexion (S2) 4+ Good+ Extension (L3) 4 Good Left Flexion (S2) 4- Good- Extension (L3) 4 Good Ankle/Foot Strength Ankle and Foot Manual Muscle Testing Right Dorsiflexion (L4) 4 Good Plantarflexion (S1) 4 Good Left Dorsiflexion (L4) 4- Good- Plantarflexion (S1) 4 Good PT-OP-Q Treatments Start: 07/31/22 17:00 Freq: Status: Active Protocol: Document 08/22/22 14:01 SAK (Rec: 08/22/22 14:52 [facility]AK [id number]) Gym Equipment Shuttle Balance chains green Details WBOS bal EO, head turns, minisquats, balloon volleyball Reps/Duration 3 min x 2 Comments seated rest break prior to balloon volleyball, fatigued Gait Training Gait Activity trekking poles x 2 Device Used trekking poles x 2 Level of Assistance CG to SBA Surface carpet, tile Distance/Duration 75 ft Treatment Focus safety, sequencing for correct use, use of loops no AD Description ambulating in // bars Device Used Gait Belt, // bars Level of Assistance CGA Surface level Distance/Duration 4x10 ft Treatment Focus increased step length, heel/ toe Comments seated rest break after SPC x 2 Description indoors and outdoors, level and brief inclines, stairs w and w/o rail Device Used SPC x2 Level of Assistance SBA>CGA Surface low carpet, tile, concrete, gravel Distance/Duration 500 ft Treatment Focus safety, step length, heel strike thru toe push-off, seque of canes on stair Neuro Re-Education Treatment Balance Activities SLS Reps/Duration 3x 10 dewayne Comments min UE support, cues for soft knee obstacle course Details 4 box, blue, green, and black foam, hayward foam Equipment parallel bars Comments 2 laps, min use of bars, cues for soft knees Self-Care/Home Management Treatment Education Other Education HO for SLS to add to HEP PT-OP-R Modalities Start: 07/31/22 17:00 Freq: Status: Active Protocol: Document 08/13/22 11:33 NBM (Rec: 08/13/22 13:16 [facility] [id number]) Hot Pack/Cold Pack Treatment Hot Pack Patient Position Hooklying Treatment Duration (minutes) 15 Patient Tolerance Good Comments LE bolster support, Lumbarthoracic, 6 layers, hernández within reach PT-OP-T Assessment and Plan Start: 07/31/22 17:00 Freq: Status: Active Protocol: Document 08/22/22 14:01 [facility] (Rec: 08/22/22 16:20 [facility] [id number]) Physical Therapy Assessment Rehab Potential Rehabilitation Potential Good Evaluation Complexity Number of Personal Factors/Comorbidities 1-2 Number of Body Systems Impaired 3 Clinical Presentation at Evaluation Evolving Impairments Impairments Activity Tolerance,Balance, Coordination,Gait,Pain, Strength Goals Four Impairment pain thoracic and lumbar spines, dewayne LE's Impairment 10/15 Short Term Goal (STG) Decrease by at least 50% with all usual activities STG Duration 08/31/22 Transistor Tester Goal (LTG) Decrease pain by at least 75% with all usual activities for improved activity and quality of life including ability to return to work with good tolerance. LTG Duration 10/31/22 Three Impairment gait dysfunction Impairment ambulates with 4WW wearing AFO left LE step-to pattern on stairs using 1 rail Short Term Goal (STG) Patient will be able to ambulate safely on level surfaces indoors and outdoors safely with LRD STG Duration 08/31/22 Transistor Tester Goal (LTG) Patient will be able to ambulate safely on all surfaces with LRD, and ascend/ descend stairs with alternating pattern. LTG Duration 10/31/22 Two Impairment balance dysfunction Impairment Ibrahim balance score 38/56 Short Term Goal (STG) Improve Ibrahim balance score to at least 45/56 Goal met 08/15/22 51/56 TUG 23 STG Duration 08/31/22 Goal met 08/15/22 Intermediate Goal (LTG) Improve Ibrahim balance score to at least 50/56 as measure of improved function and safety Goal met 08/15/22 51/56 LTG Duration 10/31/22 Goal met 08/15/22 One Impairment weakness dewayne LE's and core Short Term Goal (STG) Patient to be instructed in HEP to address strength deficits STG Duration 08/31/22 Transistor Tester Goal (LTG) Patient will be independent and compliant with HEP and demonstrate improvement in LE and core muscle strength to at least 4+/5 to improve her functional mobility, safety and independence LTG Duration Assessment Summary Assessment Continued with gait training progressing to gait outdoors on level, incline, gravel, stairs with and without railing with pt. education for safe use of canes. Ended session with gait training using 2 trekking poles on indoor level surfaces with patient demonstrating good understanding of all; CG to SBA. Trial shuttle balance activities with chains on green setting. Patient requires frequent rest breaks. Am concerned about anticipated return to work; feel she will need accomodations and recommend start 1/2 time. Physical Therapy Plan Frequency and Duration Frequency of Treatment 2x/Week Duration of treatment (weeks) 12 Plan of Care Start Date 08/01/22 Plan of Care End Date 10/31/22 Therapeutic Interventions Therapeutic Interventions Balance Training,Gait Training ,Home Exercise Program,Manual Therapy,Neuromuscular Re- education,Patient/Caregiver Education,Self-Care/Home Management,Therapeutic Activities,Therapeutic Exercises Modalities Cold Pack/Ice Massage,Electric Stimulation,Hot Packs, Ultrasound Next Visit Focus/Plan Next Note Type Treatment Note Next Visit Plan Continue progression of gait training on level and uneven surfaces; gait with trekking poles outdoors on uneven surfaces as able. Core strengthening ex on therapy ball, supine as well with progression of HEP incuding updated written HO.
--- NOTE | 2022-08-24 16:31 | PT.OTN ---
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 (08/24/22) Physical Therapy Treatment Note PT-OP-A Visit Information Start: 07/31/22 17:00 Freq: Status: Active Protocol: Document 08/24/22 14:47 NBM (Rec: 08/24/22 16:29 NBM [id number]) Out-Patient Physical Therapy Visit Information Visit Information Visit Type Treatment Note Visit Start Time 14:40 Visit Stop Time 15:30 Total Visit Minutes 50 Visit Number 8 Number of CRAFT WORKER Visits 1 PT-OP-B Current Condition Start: 07/31/22 17:00 Freq: Status: Active Protocol: Document 08/02/22 10:31 SAK (Rec: 08/02/22 11:12 SAK [id number]) Current Condition History of Current Condition Onset Date 06/08/22 Current Complaints weakness History of Current Condition Started having weakness acutely 06/08/22 with no known cause. Seen at ER in [place] , sent to [facility] for evaluation and treatment. [facility] 06/08/22-07/03/22. Imaging revealed inflammation and demyelination T10 cause unknown, medical staff unable to give prognosis. Had PT, steroids, IVIG. Since discharge home has been doing exercises, walking with 4WW, wearing AFO left LE. Now having medial thigh pain manoj like something is puching up on the muscles there. Sent home with [facility], assist. Now c/o tingling and numbness mid thigh down, recently pain front of ankles manoj, medial thigh pain, pain T10, lumbar spine, manoj buttocks. Has been taking 1000 mg Tylenol when goes to bed, muscle spasms and pain in groin gets worse at night. Hasn't tried ice or heat. HIstory of LBP in April 2022 top of hip bones, had MRI and saw lactation specialist; was told to lose weight, exercise, don't come back until you have sciatica. MRI at [facility] showed mostly mild degeneration throughout spine, and bulges lumbar spine. Is walking as much as she can with 4WW, 30 min at a time. Practicing on stairs 5 stairs at a time x 4 max, tapping foot on soup can, heel/toe taps, sit to stand, shoulder exercises. Wears AFO left. Uses shower/tub chair, dresses self, has control of bladder and bowels. Hopeful to be able to walk without a device again. Prior Treatments and Tests PT, IGIV and steroids in hospital. Treatment Goals Patient/Caregiver Goals Return to prior level of function; walk independently, drive. 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 Right now gets very tired easily. Return to work date put in currently for September 09. PT-OP-C Subjective Start: 07/31/22 17:00 Freq: Status: Active Protocol: Document 08/24/22 14:47 NBM (Rec: 08/24/22 16:29 NBM [id number]) OP-PT Subjective Patient Comments Patient Comments 5 or 6/10 pain in tailbone beginning of treatment session . Had a really good stretch of no spasms but then spasms Saturday and then tail bone pain started last night. She could sleep off and on due to pain. Spasms this morning before getting out of bed; no spasms since. She reports she practicied SL balance ex and it's tough. PT-OP-D Balance Start: 07/31/22 17:00 Freq: Status: Active Protocol: Document 08/01/22 08:14 SAK (Rec: 08/01/22 08:59 SAK [id number]) OP-PT Balance Assessment Sitting Balance Static Sitting Balance Ability Good Dynamic Sitting Balance Ability Good Ibrahim Balance Assessment Evaluation Sitting to Standing Ability Independent w/out Hands Unsupported Stance Safely- 2 minutes Sitting Unsupported, Feet on Floor Safely- 2 minutes Standing to Sitting Ability Safely, Minimal Hand Use Transfer Ability Safely, Minimal Hand Use Unsupported Stance- Eyes Closed Supervision, 10 seconds Unsupported Stance- Eyes Open Independent, 1 minute Pick- Up Object From Floor Supervision Look Behind Shoulder - Standing Turns Sideways Only Turning 360 Degrees Turns slowly, but safely Unsupported Tandem Stance Assist to Step-15 seconds Unilateral Leg Stance Lifts Leg/Holds 5-10 secs Total Score Ibrahim Total Score (out of 56 points) 38 Pearce Fall Scale Assessment History of Falling (Immediate or No Previous) Secondary Diagnosis (More Than 2 Medical No Diagnoses in Chart) Ambulatory Aid Crutches/cane/walker Gait/Transferring Weak Mental Status Oriented to own ability Copyright Permission PT-OP-G Mobility & Gait Start: 07/31/22 17:00 Freq: Status: Active Protocol: Document 08/01/22 08:14 [facility] (Rec: 08/01/22 17:10 [facility] [id number]) OP Mobility Evaluation Transfers Sit to Stand without UE's OP Gait Assessment Gait Gait Assistance Required: Independent Distance (Feet) 100 Assistive Devices Assistive Device Front Wheeled Walker Orthotic/Prosthetic Devices or Brace: Yes Gait Deviations General Gait Pattern Ataxic,Decreased Stride Length ,Decreased Feet Clearance Factors Limiting Gait Function Factors Limiting Gait Function Abnormal Tonal Influences, Decreased Sensation,Decreased Strength,Poor Balance Comments Gait Comments 6 min walk test with FWW 375 ft Stair Climbing Evaluation Evaluation Level of Assist On Stairs Contact Guard Assistance Devices Stair Climbing Assistive Devices Right Railing Technique/Endurance Stair Climbing Direction Ascend and Descend Stair Climbing Technique Step Over Step Stair Climbing Set # Repetitions (reps) 1 Comments Stair Climbing Comments some difficulty with foot placement PT-OP-H Neuro Start: 07/31/22 17:00 Freq: Status: Active Protocol: Document 08/01/22 08:14 [facility] (Rec: 08/01/22 17:10 [facility] [id number]) Sensation Evaluation Gross Sensation Gross Sensation Left LE Impaired,Right LE Impaired Sensation Description Paresthesia,Numbness,Tingling, Pins & [place] Location Details Leg Light Touch Intact/Normal Proprioception (Position) Impaired Kinesthesia (Movement) Impaired Coordination Evaluation Lower Extremity Tests Right Heel on Lozoya Test Moderate Impairment Foot Tapping Test Moderate Impairment Drawing a [place] w/Foot Test Minimal Impairment PT-OP-K Range of Motion Start: 07/31/22 17:00 Freq: Status: Active Protocol: Document 08/01/22 08:14 [facility] (Rec: 08/01/22 17:10 [facility] [id number]) Cervical Spine Range of Motion Cervical Spine Active Testing Position Sitting Comments WFL PT-OP-M Strength Start: 07/31/22 17:00 Freq: Status: Active Protocol: Document 08/01/22 08:14 SAK (Rec: 08/01/22 08:59 [facility] [id number]) Hip Strength Hip Manual Muscle Testing Right Flexion (L2) 4+ Good+ Abduction 4 Good External Rotation 4- Good- Internal Rotation 4- Good- Left Flexion (L2) 4- Good- Extension (S1) 4- Good- Abduction 4- Good- External Rotation 3+ Fair+ Internal Rotation 4- Good- Knee Strength Knee Manual Muscle Testing Right Flexion (S2) 4+ Good+ Extension (L3) 4 Good Left Flexion (S2) 4- Good- Extension (L3) 4 Good Ankle/Foot Strength Ankle and Foot Manual Muscle Testing Right Dorsiflexion (L4) 4 Good Plantarflexion (S1) 4 Good Left Dorsiflexion (L4) 4- Good- Plantarflexion (S1) 4 Good PT-OP-Q Treatments Start: 07/31/22 17:00 Freq: Status: Active Protocol: Document 08/24/22 14:47 [facility] (Rec: 08/24/22 16:29 [facility] [id number]) Therapeutic Exercises Supine Exercises Happy baby stretch Supine Exercise Name added to HEP DKTC Side bilateral Reps/Minutes 30s x 2 SKTC Side bilateral Reps/Minutes 30s x 2 HS stretch Side bilateral Reps/Minutes 30s x 2 Comments w/ ankle pumps ball squeeze Equipment Used folded pillow Reps/Minutes 10x Comments no increase in baseline symptoms Gait Training Gait Activity SPC x 2 Description indoors and outdoors, level and brief inclines, stairs w and w/o rail Device Used SPC x2 Level of Assistance SBA>CGA Surface low carpet, tile, concrete, gravel, grass Distance/Duration 500 ft Treatment Focus safety, toes forward L>R, step length, heel strike thru toe push-off Comments One seated rest break at picnic table. Pt remarks, That was easier than last time . Manual Therapy Treatment Soft Tissue Mobilization john-coccyx Body Location bilateral Mobilization Type Myofascial Release,Rolling Intensity/Depth Superficial Comments R sidelying, R tension>L, pt performed pelvic floor ex w/ cues for TrA and dc'd d/t increased pain. PT-OP-R Modalities Start: 07/31/22 17:00 Freq: Status: Active Protocol: Document 08/24/22 14:47 NB (Rec: 08/24/22 16:29 [facility] [id number]) Hot Pack/Cold Pack Treatment Hot Pack Location lumbosacrococcygeal Patient Position Hooklying Treatment Duration (minutes) 15 Patient Tolerance Fair Comments LE bolster support, 6 layers, hernández within reach PT-OP-T Assessment and Plan Start: 07/31/22 17:00 Freq: Status: Active Protocol: Document 08/24/22 14:47 [facility] (Rec: 08/24/22 16:29 [facility] [id number]) Physical Therapy Assessment Impairments Impairments Activity Tolerance,Balance, Coordination,Gait,Pain, Strength Goals Four Impairment pain thoracic and lumbar spines, manoj LE's Impairment 10/15 Short Term Goal (STG) Decrease by at least 50% with all usual activities STG Duration 08/31/22 Pony Cylinder Press Operator Goal (LTG) Decrease pain by at least 75% with all usual activities for improved activity and quality of life including ability to return to work with good tolerance. LTG Duration 10/31/22 Three Impairment gait dysfunction Impairment ambulates with 4WW wearing AFO left LE step-to pattern on stairs using 1 rail Short Term Goal (STG) Patient will be able to ambulate safely on level surfaces indoors and outdoors safely with LRD STG Duration 08/31/22 Longterm Goal (LTG) Patient will be able to ambulate safely on all surfaces with LRD, and ascend/ descend stairs with alternating pattern. LTG Duration 10/31/22 Two Impairment balance dysfunction Impairment Ibrahim balance score 38/56 Short Term Goal (STG) Improve Ibrahim balance score to at least 45/56 Goal met 08/15/22 51/56 TUG STG Duration 08/31/22 Goal met 08/15/22 Pony Cylinder Press Operator Goal (LTG) Improve Ibraihm balance score to at least 50/56 as measure of improved function and safety Goal met 08/15/22 51/56 LTG Duration 10/31/22 Goal met 08/15/22 One Impairment weakness manoj LE's and core Short Term Goal (STG) Patient to be instructed in HEP to address strength deficits STG Duration 08/31/22 Longterm Goal (LTG) Patient will be independent and compliant with HEP and demonstrate improvement in LE and core muscle strength to at least 4+/5 to improve her functional mobility, safety and independence LTG Duration Assessment Summary Assessment Treatment focus on coccygeal pain relief and gait w/ 2 Single point canes. Pt arrives with increased Manoj coccyx pain which is exacerbated in sitting and w/ sidelying pelvic floor ex. Posterior pelvic tilt decreases inferior coccyx pain but not superior, and pt requires cues for breathwork and guarding. Pain improves w/ HEP stretches and pt has positive feedback response to Happy baby stretch no more than ~1 min - added to HEP. Pt demonstrates improved confidence w/ gait w/ SPCx2 and is able to ambulate indoors and outdoors on uneven surfaces including grass and incline/decline with one seated rest break. She requires cues for L hip ER and is able to better control L neutral foot position with focus on L knee as she has reduced sensation distally. On decline pt is challenged w/ eccentric control, possibly moreso due to approaching fatigue. Physical Therapy Plan Frequency and Duration Frequency of Treatment 2x/Week Duration of treatment (weeks) 12 Plan of Care Start Date 08/01/22 Plan of Care End Date 10/31/22 Therapeutic Interventions Therapeutic Interventions Balance Training,Gait Training ,Home Exercise Program,Manual Therapy,Neuromuscular Re- education,Patient/Caregiver Education,Self-Care/Home Management,Therapeutic Activities,Therapeutic Exercises Modalities Cold Pack/Ice Massage,Electric Stimulation,Hot Packs, Ultrasound Next Visit Focus/Plan Next Note Type Treatment Note Next Visit Plan Continue progression of gait training on level and uneven surfaces; gait with trekking poles outdoors on uneven surfaces as able. Core strengthening ex on therapy ball, supine as well with progression of HEP incuding updated written HO.
--- NOTE | 2022-08-27 16:51 | PT.OTN ---
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 (08/27/22) Physical Therapy Treatment Note PT-OP-A Visit Information Start: 07/31/22 17:00 Freq: Status: Active Protocol: Document 08/27/22 08:48 SAK (Rec: 08/27/22 09:31 SAK [id number]) Out-Patient Physical Therapy Visit Information Visit Information Visit Type Treatment Note Visit Start Time 08:48 Visit Stop Time 09:43 Total Visit Minutes 55 Visit Number 9 Number of DIRECTOR FUNERAL Visits 0 PT-OP-B Current Condition Start: 07/31/22 17:00 Freq: Status: Active Protocol: Document 08/02/22 10:31 SAK (Rec: 08/02/22 11:12 SAK [id number]) Current Condition History of Current Condition Onset Date 06/08/22 Current Complaints weakness History of Current Condition Started having weakness acutely 06/08/22 with no known cause. Seen at ER in [place] , sent to [facility] for evaluation and treatment. [facility] 06/08/22-07/03/22. Imaging revealed inflammation and demyelination T10 cause unknown, medical staff unable to give prognosis. Had PT, steroids, IVIG. Since discharge home has been doing exercises, walking with 4WW, wearing AFO left LE. Now having medial thigh pain dewayne like something is puching up on the muscles there. Sent home with [facility], assist. Now c/o tingling and numbness mid thigh down, recently pain front of ankles dewayne, medial thigh pain, pain T10, lumbar spine, dewayne buttocks. Has been taking 1000 mg Tylenol when goes to bed, muscle spasms and pain in groin gets worse at night. Hasn't tried ice or heat. HIstory of LBP in April 2022 top of hip bones, had MRI and saw account management specialist; was told to lose weight, exercise, don't come back until you have sciatica. MRI at [facility] showed mostly mild degeneration throughout spine, and bulges lumbar spine. Is walking as much as she can with 4WW, 30 min at a time. Practicing on stairs 5 stairs at a time x 4 max, tapping foot on soup can, heel/toe taps, sit to stand, shoulder exercises. Wears AFO left. Uses shower/tub chair, dresses self, has control of bladder and bowels. Hopeful to be able to walk without a device again. Prior Treatments and Tests PT, IGIV and steroids in hospital. Treatment Goals Patient/Caregiver Goals Return to prior level of function; walk independently, drive. 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 Right now gets very tired easily. Return to work date put in currently for September 09. PT-OP-C Subjective Start: 07/31/22 17:00 Freq: Status: Active Protocol: Document 08/27/22 08:48 SAK (Rec: 08/27/22 09:31 SAK [id number]) OP-PT Subjective Patient Comments Patient Comments Less pain, 4/10 today, last night pretty good. Has been tired, doing more around house ; laundry. Thinks more spasms after walking later in day, doesn't stretch after. Concerned about being able to tolerate work. States her current doctor is leaving so she needs to find new doctor to see. Has appt with neurologist 09/14/22 PT-OP-D Balance Start: 07/31/22 17:00 Freq: Status: Active Protocol: Document 08/01/22 08:14 SAK (Rec: 08/01/22 08:59 [facility] [id number]) OP-PT Balance Assessment Sitting Balance Static Sitting Balance Ability Good Dynamic Sitting Balance Ability Good Ibrahim Balance Assessment Evaluation Sitting to Standing Ability Independent w/out Hands Unsupported Stance Safely- 2 minutes Sitting Unsupported, Feet on Floor Safely- 2 minutes Standing to Sitting Ability Safely, Minimal Hand Use Transfer Ability Safely, Minimal Hand Use Unsupported Stance- Eyes Closed Supervision, 10 seconds Unsupported Stance- Eyes Open Independent, 1 minute Pick- Up Object From Floor Supervision Look Behind Shoulder - Standing Turns Sideways Only Turning 360 Degrees Turns slowly, but safely Unsupported Tandem Stance Assist to Step-15 seconds Unilateral Leg Stance Lifts Leg/Holds 5-10 secs Total Score Ibrahim Total Score (out of 56 points) 38 Pearce Fall Scale Assessment History of Falling (Immediate or No Previous) Secondary Diagnosis (More Than 2 Medical No Diagnoses in Chart) Ambulatory Aid Crutches/cane/walker Gait/Transferring Weak Mental Status Oriented to own ability Copyright Permission PT-OP-G Mobility & Gait Start: 07/31/22 17:00 Freq: Status: Active Protocol: Document 08/01/22 08:14 [facility] (Rec: 08/01/22 17:10 [facility] [id number]) OP Mobility Evaluation Transfers Sit to Stand without UE's OP Gait Assessment Gait Gait Assistance Required: Independent Distance (Feet) 100 Assistive Devices Assistive Device Front Wheeled Walker Orthotic/Prosthetic Devices or Brace: Yes Gait Deviations General Gait Pattern Ataxic,Decreased Stride Length ,Decreased Feet Clearance Factors Limiting Gait Function Factors Limiting Gait Function Abnormal Tonal Influences, Decreased Sensation,Decreased Strength,Poor Balance Comments Gait Comments 6 min walk test with FWW 375 ft Stair Climbing Evaluation Evaluation Level of Assist On Stairs Contact Guard Assistance Devices Stair Climbing Assistive Devices Right Railing Technique/Endurance Stair Climbing Direction Ascend and Descend Stair Climbing Technique Step Over Step Stair Climbing Set # Repetitions (reps) 1 Comments Stair Climbing Comments some difficulty with foot placement PT-OP-H Neuro Start: 07/31/22 17:00 Freq: Status: Active Protocol: Document 08/01/22 08:14 [facility] (Rec: 08/01/22 17:10 [facility] [id number]) Sensation Evaluation Gross Sensation Gross Sensation Left LE Impaired,Right LE Impaired Sensation Description Paresthesia,Numbness,Tingling, Pins & [place] Location Details Leg Light Touch Intact/Normal Proprioception (Position) Impaired Kinesthesia (Movement) Impaired Coordination Evaluation Lower Extremity Tests Right Heel on Lozoya Test Moderate Impairment Foot Tapping Test Moderate Impairment Drawing a [place] w/Foot Test Minimal Impairment PT-OP-K Range of Motion Start: 07/31/22 17:00 Freq: Status: Active Protocol: Document 08/01/22 08:14 [facility] (Rec: 08/01/22 17:10 [facility] [id number]) Cervical Spine Range of Motion Cervical Spine Active Testing Position Sitting Comments WFL PT-OP-M Strength Start: 07/31/22 17:00 Freq: Status: Active Protocol: Document 08/01/22 08:14 [facility] (Rec: 08/01/22 08:59 [facility] [id number]) Hip Strength Hip Manual Muscle Testing Right Flexion (L2) 4+ Good+ Abduction 4 Good External Rotation 4- Good- Internal Rotation 4- Good- Left Flexion (L2) 4- Good- Extension (S1) 4- Good- Abduction 4- Good- External Rotation 3+ Fair+ Internal Rotation 4- Good- Knee Strength Knee Manual Muscle Testing Right Flexion (S2) 4+ Good+ Extension (L3) 4 Good Left Flexion (S2) 4- Good- Extension (L3) 4 Good Ankle/Foot Strength Ankle and Foot Manual Muscle Testing Right Dorsiflexion (L4) 4 Good Plantarflexion (S1) 4 Good Left Dorsiflexion (L4) 4- Good- Plantarflexion (S1) 4 Good PT-OP-Q Treatments Start: 07/31/22 17:00 Freq: Status: Active Protocol: Document 08/27/22 08:48 [facility] (Rec: 08/27/22 09:31 [facility] [id number]) Gym Equipment Therapeutic Ball sitting Ball Size/Color 65 cm green Body Position Sitting Comments pelvic tilt lateral tilt circles/clock ball squeeze Gait Training Gait Activity SPC x 1 Level of Assistance SBA, CGA Surface firm Distance/Duration 30 ft x 2, 40 ft x 1 Treatment Focus safety, sequencing Comments cues for soft knee hurdles Device Used 1 cane, no cane Level of Assistance CGA Surface carpet Distance/Duration 6 hurdles x 6 Treatment Focus balance Comments 2 feet in between each jolie; lead with right, then lead with left obstacle course Surface 2 black yoga mats with green, blue and black pods on top Distance/Duration 6x Treatment Focus safety trekking poles x 2 Device Used trekking poles x 2 Level of Assistance CG to SBA Surface carpet, tile Distance/Duration 75 ft Treatment Focus safety, sequencing for correct use, use of loops no AD Description ambulating in // bars Device Used Gait Belt, // bars Level of Assistance CGA Surface level, 2 black yoga mats Distance/Duration 4x10 ft Treatment Focus increased step length, heel/ toe Comments seated rest break after PT-OP-R Modalities Start: 07/31/22 17:00 Freq: Status: Active Protocol: Document 08/27/22 08:48 [facility] (Rec: 08/27/22 09:31 [facility] [id number]) Hot Pack/Cold Pack Treatment Hot Pack Location lumbosacrococcygeal Patient Position Hooklying Treatment Duration (minutes) 15 Patient Tolerance Fair Comments LE bolster support, 6 layers, hernández within reach PT-OP-T Assessment and Plan Start: 07/31/22 17:00 Freq: Status: Active Protocol: Document 08/27/22 08:48 [facility] (Rec: 08/27/22 09:31 [facility] [id number]) Physical Therapy Assessment Impairments Impairments Activity Tolerance,Balance, Coordination,Gait,Pain, Strength Goals Four Impairment pain thoracic and lumbar spines, dewayne LE's Impairment 10/15 Short Term Goal (STG) Decrease by at least 50% with all usual activities STG Duration 08/31/22 Personalization Specialist Goal (LTG) Decrease pain by at least 75% with all usual activities for improved activity and quality of life including ability to return to work with good tolerance. LTG Duration 10/31/22 Three Impairment gait dysfunction Impairment ambulates with 4WW wearing AFO left LE step-to pattern on stairs using 1 rail Short Term Goal (STG) Patient will be able to ambulate safely on level surfaces indoors and outdoors safely with LRD STG Duration 08/31/22 [facility] Goal (LTG) Patient will be able to ambulate safely on all surfaces with LRD, and ascend/ descend stairs with alternating pattern. LTG Duration 10/31/22 Two Impairment balance dysfunction Impairment Ibrahim balance score 38/56 Short Term Goal (STG) Improve Ibrahim balance score to at least 45/56 Goal met 08/15/22 51/56 TUG STG Duration 08/31/22 Goal met 08/15/22 [facility] Goal (LTG) Improve Ibrahim balance score to at least 50/56 as measure of improved function and safety Goal met 08/15/22 51/56 LTG Duration 10/31/22 Goal met 08/15/22 One Impairment weakness dewayne LE's and core Short Term Goal (STG) Patient to be instructed in HEP to address strength deficits STG Duration 08/31/22 [facility] Goal (LTG) Patient will be independent and compliant with HEP and demonstrate improvement in LE and core muscle strength to at least 4+/5 to improve her functional mobility, safety and independence LTG Duration Assessment Summary Assessment Patient ambulating with 1 cane at home mostly, for outdoor walks using 2 canes. Pain level variable, patient wanting to work on gait, balance, strengthening. Patient challenged by gait with hurdles, foam, but min UE support, no LOB, though some unsteadyness noted. Frequent rest breaks required. Physical Therapy Plan Frequency and Duration Frequency of Treatment 2x/Week Duration of treatment (weeks) 12 Plan of Care Start Date 08/01/22 Plan of Care End Date 10/31/22 Therapeutic Interventions Therapeutic Interventions Balance Training,Gait Training ,Home Exercise Program,Manual Therapy,Neuromuscular Re- education,Patient/Caregiver Education,Self-Care/Home Management,Therapeutic Activities,Therapeutic Exercises Modalities Cold Pack/Ice Massage,Electric Stimulation,Hot Packs, Ultrasound Next Visit Focus/Plan Next Note Type Treatment Note Next Visit Plan Continue progression of gait training on level and uneven surfaces; gait with trekking poles outdoors on uneven surfaces as able, indoors with no device as able. Core and LE strengthening.
--- NOTE | 2022-08-27 16:53 | PT.OTN ---
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 (08/27/22) Physical Therapy Treatment Note PT-OP-A Visit Information Start: 07/31/22 17:00 Freq: Status: Active Protocol: Document 08/27/22 08:48 SAK (Rec: 08/27/22 09:31 SAK [id number]) Out-Patient Physical Therapy Visit Information Visit Information Visit Type Treatment Note Visit Start Time 08:48 Visit Stop Time 09:43 Total Visit Minutes 55 Visit Number 9 Number of BELLMAN CAPTAIN Visits 0 PT-OP-B Current Condition Start: 07/31/22 17:00 Freq: Status: Active Protocol: Document 08/02/22 10:31 SAK (Rec: 08/02/22 11:12 SAK [id number]) Current Condition History of Current Condition Onset Date 06/08/22 Current Complaints weakness History of Current Condition Started having weakness acutely 06/08/22 with no known cause. Seen at ER in [place] , sent to [facility] for evaluation and treatment. [facility] 06/08/22-07/03/22. Imaging revealed inflammation and demyelination T10 cause unknown, medical staff unable to give prognosis. Had PT, steroids, IVIG. Since discharge home has been doing exercises, walking with 4WW, wearing AFO left LE. Now having medial thigh pain dewayne like something is puching up on the muscles there. Sent home with [facility], assist. Now c/o tingling and numbness mid thigh down, recently pain front of ankles dewayne, medial thigh pain, pain T10, lumbar spine, dewayne buttocks. Has been taking 1000 mg Tylenol when goes to bed, muscle spasms and pain in groin gets worse at night. Hasn't tried ice or heat. HIstory of LBP in April 2022 top of hip bones, had MRI and saw claim specialist; was told to lose weight, exercise, don't come back until you have sciatica. MRI at [facility] showed mostly mild degeneration throughout spine, and bulges lumbar spine. Is walking as much as she can with 4WW, 30 min at a time. Practicing on stairs 5 stairs at a time x 4 max, tapping foot on soup can, heel/toe taps, sit to stand, shoulder exercises. Wears AFO left. Uses shower/tub chair, dresses self, has control of bladder and bowels. Hopeful to be able to walk without a device again. Prior Treatments and Tests PT, IGIV and steroids in hospital. Treatment Goals Patient/Caregiver Goals Return to prior level of function; walk independently, drive. 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 Right now gets very tired easily. Return to work date put in currently for September 09. PT-OP-C Subjective Start: 07/31/22 17:00 Freq: Status: Active Protocol: Document 08/27/22 08:48 SAK (Rec: 08/27/22 09:31 SAK [id number]) OP-PT Subjective Patient Comments Patient Comments Less pain, 4/10 today, last night pretty good. Has been tired, doing more around house ; laundry. Thinks more spasms after walking later in day, doesn't stretch after. Concerned about being able to tolerate work. States her current doctor is leaving so she needs to find new doctor to see. Has appt with neurologist 09/14/22 PT-OP-D Balance Start: 07/31/22 17:00 Freq: Status: Active Protocol: Document 08/01/22 08:14 SAK (Rec: 08/01/22 08:59 [facility] [id number]) OP-PT Balance Assessment Sitting Balance Static Sitting Balance Ability Good Dynamic Sitting Balance Ability Good Ibrahim Balance Assessment Evaluation Sitting to Standing Ability Independent w/out Hands Unsupported Stance Safely- 2 minutes Sitting Unsupported, Feet on Floor Safely- 2 minutes Standing to Sitting Ability Safely, Minimal Hand Use Transfer Ability Safely, Minimal Hand Use Unsupported Stance- Eyes Closed Supervision, 10 seconds Unsupported Stance- Eyes Open Independent, 1 minute Pick- Up Object From Floor Supervision Look Behind Shoulder - Standing Turns Sideways Only Turning 360 Degrees Turns slowly, but safely Unsupported Tandem Stance Assist to Step-15 seconds Unilateral Leg Stance Lifts Leg/Holds 5-10 secs Total Score Ibrahim Total Score (out of 56 points) 38 Pearce Fall Scale Assessment History of Falling (Immediate or No Previous) Secondary Diagnosis (More Than 2 Medical No Diagnoses in Chart) Ambulatory Aid Crutches/cane/walker Gait/Transferring Weak Mental Status Oriented to own ability Copyright Permission PT-OP-G Mobility & Gait Start: 07/31/22 17:00 Freq: Status: Active Protocol: Document 08/01/22 08:14 [facility] (Rec: 08/01/22 17:10 [facility] [id number]) OP Mobility Evaluation Transfers Sit to Stand without UE's OP Gait Assessment Gait Gait Assistance Required: Independent Distance (Feet) 100 Assistive Devices Assistive Device Front Wheeled Walker Orthotic/Prosthetic Devices or Brace: Yes Gait Deviations General Gait Pattern Ataxic,Decreased Stride Length ,Decreased Feet Clearance Factors Limiting Gait Function Factors Limiting Gait Function Abnormal Tonal Influences, Decreased Sensation,Decreased Strength,Poor Balance Comments Gait Comments 6 min walk test with FWW 375 ft Stair Climbing Evaluation Evaluation Level of Assist On Stairs Contact Guard Assistance Devices Stair Climbing Assistive Devices Right Railing Technique/Endurance Stair Climbing Direction Ascend and Descend Stair Climbing Technique Step Over Step Stair Climbing Set # Repetitions (reps) 1 Comments Stair Climbing Comments some difficulty with foot placement PT-OP-H Neuro Start: 07/31/22 17:00 Freq: Status: Active Protocol: Document 08/01/22 08:14 [facility] (Rec: 08/01/22 17:10 [facility] [id number]) Sensation Evaluation Gross Sensation Gross Sensation Left LE Impaired,Right LE Impaired Sensation Description Paresthesia,Numbness,Tingling, Pins & Crump Location Details Leg Light Touch Intact/Normal Proprioception (Position) Impaired Kinesthesia (Movement) Impaired Coordination Evaluation Lower Extremity Tests Right Heel on Lozoya Test Moderate Impairment Foot Tapping Test Moderate Impairment Drawing a [place] w/Foot Test Minimal Impairment PT-OP-K Range of Motion Start: 07/31/22 17:00 Freq: Status: Active Protocol: Document 08/01/22 08:14 [facility] (Rec: 08/01/22 17:10 [facility] [id number]) Cervical Spine Range of Motion Cervical Spine Active Testing Position Sitting Comments WFL PT-OP-M Strength Start: 07/31/22 17:00 Freq: Status: Active Protocol: Document 08/01/22 08:14 [facility] (Rec: 08/01/22 08:59 [facility] [id number]) Hip Strength Hip Manual Muscle Testing Right Flexion (L2) 4+ Good+ Abduction 4 Good External Rotation 4- Good- Internal Rotation 4- Good- Left Flexion (L2) 4- Good- Extension (S1) 4- Good- Abduction 4- Good- External Rotation 3+ Fair+ Internal Rotation 4- Good- Knee Strength Knee Manual Muscle Testing Right Flexion (S2) 4+ Good+ Extension (L3) 4 Good Left Flexion (S2) 4- Good- Extension (L3) 4 Good Ankle/Foot Strength Ankle and Foot Manual Muscle Testing Right Dorsiflexion (L4) 4 Good Plantarflexion (S1) 4 Good Left Dorsiflexion (L4) 4- Good- Plantarflexion (S1) 4 Good PT-OP-Q Treatments Start: 07/31/22 17:00 Freq: Status: Active Protocol: Document 08/27/22 08:48 [facility] (Rec: 08/27/22 09:31 [facility] [id number]) Gym Equipment Therapeutic Ball sitting Ball Size/Color 65 cm green Body Position Sitting Comments pelvic tilt lateral tilt circles/clock ball squeeze Gait Training Gait Activity SPC x 1 Level of Assistance SBA, CGA Surface firm Distance/Duration 30 ft x 2, 40 ft x 1 Treatment Focus safety, sequencing Comments cues for soft knee hurdles Device Used 1 cane, no cane Level of Assistance CGA Surface carpet Distance/Duration 6 hurdles x 6 Treatment Focus balance Comments 2 feet in between each jolie; lead with right, then lead with left obstacle course Surface 2 black yoga mats with green, blue and black pods on top Distance/Duration 6x Treatment Focus safety trekking poles x 2 Device Used trekking poles x 2 Level of Assistance CG to SBA Surface carpet, tile Distance/Duration 75 ft Treatment Focus safety, sequencing for correct use, use of loops no AD Description ambulating in // bars Device Used Gait Belt, // bars Level of Assistance CGA Surface level, 2 black yoga mats Distance/Duration 4x10 ft Treatment Focus increased step length, heel/ toe Comments seated rest break after PT-OP-R Modalities Start: 07/31/22 17:00 Freq: Status: Active Protocol: Document 08/27/22 08:48 [facility] (Rec: 08/27/22 09:31 [facility] [id number]) Hot Pack/Cold Pack Treatment Hot Pack Location lumbosacrococcygeal Patient Position Hooklying Treatment Duration (minutes) 15 Patient Tolerance Fair Comments LE bolster support, 6 layers, hernández within reach PT-OP-T Assessment and Plan Start: 07/31/22 17:00 Freq: Status: Active Protocol: Document 08/27/22 08:48 [facility] (Rec: 08/27/22 09:31 [facility] [id number]) Physical Therapy Assessment Impairments Impairments Activity Tolerance,Balance, Coordination,Gait,Pain, Strength Goals Four Impairment pain thoracic and lumbar spines, dewayne LE's Impairment 10/15 Short Term Goal (STG) Decrease by at least 50% with all usual activities 08/27/22: pain variable, 07/16 today STG Duration 08/31/22 Intermediate Goal (LTG) Decrease pain by at least 75% with all usual activities for improved activity and quality of life including ability to return to work with good tolerance. LTG Duration 10/31/22 Three Impairment gait dysfunction Impairment ambulates with 4WW wearing AFO left LE step-to pattern on stairs using 1 rail Short Term Goal (STG) Patient will be able to ambulate safely on level surfaces indoors and outdoors safely with LRD 08/27/22: patient ambulating indoors with 1 cane, outdoors with 2 canes, 2 trekking poles , or 4WW. STG Duration 08/31/22 Basket Patcher Goal (LTG) Patient will be able to ambulate safely on all surfaces with LRD, and ascend/ descend stairs with alternating pattern. LTG Duration 10/31/22 Two Impairment balance dysfunction Impairment Ibrahim balance score 38/56 Short Term Goal (STG) Improve Ibrahim balance score to at least 45/56 Goal met 08/15/22 51/56 23 STG Duration 08/31/22 Goal met 08/15/22 Basket Patcher Goal (LTG) Improve Ibrahim balance score to at least 50/56 as measure of improved function and safety Goal met 08/15/22 51/56 LTG Duration 10/31/22 Goal met 08/15/22 One Impairment weakness dewayne LE's and core Short Term Goal (STG) Patient to be instructed in HEP to address strength deficits 08/27/22: good goal progress, ongoing progression STG Duration 08/31/22 Intermediate Goal (LTG) Patient will be independent and compliant with HEP and demonstrate improvement in LE and core muscle strength to at least 4+/5 to improve her functional mobility, safety and independence LTG Duration Assessment Summary Assessment Patient ambulating with 1 cane at home mostly, for outdoor walks using 2 canes. Pain level variable, patient wanting to work on gait, balance, strengthening. Patient challenged by gait with hurdles, foam, but min UE support, no LOB, though some unsteadyness noted. Frequent rest breaks required. Physical Therapy Plan Frequency and Duration Frequency of Treatment 2x/Week Duration of treatment (weeks) 12 Plan of Care Start Date 08/01/22 Plan of Care End Date 10/31/22 Therapeutic Interventions Therapeutic Interventions Balance Training,Gait Training ,Home Exercise Program,Manual Therapy,Neuromuscular Re- education,Patient/Caregiver Education,Self-Care/Home Management,Therapeutic Activities,Therapeutic Exercises Modalities Cold Pack/Ice Massage,Electric Stimulation,Hot Packs, Ultrasound Next Visit Focus/Plan Next Note Type Treatment Note Next Visit Plan Continue progression of gait training on level and uneven surfaces; gait with trekking poles outdoors on uneven surfaces as able, indoors with no device as able. Core and LE strengthening.
--- NOTE | 2022-08-30 14:25 | PT.OTN ---
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 (08/30/22) Physical Therapy Treatment Note PT-OP-A Visit Information Start: 07/31/22 17:00 Freq: Status: Active Protocol: Document 08/30/22 08:46 [facility]AK (Rec: 08/30/22 09:27 [facility]AK [id number]) Out-Patient Physical Therapy Visit Information Visit Information Visit Type Treatment Note Visit Start Time 08:46 Visit Stop Time 09:43 Total Visit Minutes 55 Visit Number 10 Number of UTILITY PERSON Visits 0 PT-OP-B Current Condition Start: 07/31/22 17:00 Freq: Status: Active Protocol: Document 08/02/22 10:31 [facility]AK (Rec: 08/02/22 11:12 [facility]AK [id number]) Current Condition History of Current Condition Onset Date 06/08/22 Current Complaints weakness History of Current Condition Started having weakness acutely 06/08/22 with no known cause. Seen at ER in [place] , sent to [facility] for evaluation and treatment. [facility] 06/08/22-07/03/22. Imaging revealed inflammation and demyelination T10 cause unknown, medical staff unable to give prognosis. Had PT, steroids, IVIG. Since discharge home has been doing exercises, walking with 4WW, wearing AFO left LE. Now having medial thigh pain dewayne like something is puching up on the muscles there. Sent home with [facility], assist. Now c/o tingling and numbness mid thigh down, recently pain front of ankles dewayne, medial thigh pain, pain T10, lumbar spine, dewayne buttocks. Has been taking 1000 mg Tylenol when goes to bed, muscle spasms and pain in groin gets worse at night. Hasn't tried ice or heat. HIstory of LBP in April 2022 top of hip bones, had MRI and saw retail merchandising specialist; was told to lose weight, exercise, don't come back until you have sciatica. MRI at [facility] showed mostly mild degeneration throughout spine, and bulges lumbar spine. Is walking as much as she can with 4WW, 30 min at a time. Practicing on stairs 5 stairs at a time x 4 max, tapping foot on soup can, heel/toe taps, sit to stand, shoulder exercises. Wears AFO left. Uses shower/tub chair, dresses self, has control of bladder and bowels. Hopeful to be able to walk without a device again. Prior Treatments and Tests PT, IGIV and steroids in hospital. Treatment Goals Patient/Caregiver Goals Return to prior level of function; walk independently, drive. 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 Right now gets very tired easily. Return to work date put in currently for September 09. PT-OP-C Subjective Start: 07/31/22 17:00 Freq: Status: Active Protocol: Document 08/30/22 08:46 SAK (Rec: 08/30/22 09:27 [facility] [id number]) OP-PT Subjective Patient Comments Patient Comments Walked 1 hour with walker yesterday, level surface, frequent standing breaks. Had to take big nap in afternoon. Spasms minimal today. States tailbone felt better after seated therapy ball exercises. Sees Dr. Monteiro (taking over for Dr. Portillo) mid September, new neurologist 09/12/22, new rehab doctor 09/20 (Dr. Marivel Stauffer at ) PT-OP-D Balance Start: 07/31/22 17:00 Freq: Status: Active Protocol: Document 08/01/22 08:14 [facility] (Rec: 08/01/22 08:59 [facility]AK [id number]) OP-PT Balance Assessment Sitting Balance Static Sitting Balance Ability Good Dynamic Sitting Balance Ability Good Ibrahim Balance Assessment Evaluation Sitting to Standing Ability Independent w/out Hands Unsupported Stance Safely- 2 minutes Sitting Unsupported, Feet on Floor Safely- 2 minutes Standing to Sitting Ability Safely, Minimal Hand Use Transfer Ability Safely, Minimal Hand Use Unsupported Stance- Eyes Closed Supervision, 10 seconds Unsupported Stance- Eyes Open Independent, 1 minute Pick- Up Object From Floor Supervision Look Behind Shoulder - Standing Turns Sideways Only Turning 360 Degrees Turns slowly, but safely Unsupported Tandem Stance Assist to Step-15 seconds Unilateral Leg Stance Lifts Leg/Holds 5-10 secs Total Score Ibrahim Total Score (out of 56 points) 38 Pearce Fall Scale Assessment History of Falling (Immediate or No Previous) Secondary Diagnosis (More Than 2 Medical No Diagnoses in Chart) Ambulatory Aid Crutches/cane/walker Gait/Transferring Weak Mental Status Oriented to own ability Copyright Permission PT-OP-G Mobility & Gait Start: 07/31/22 17:00 Freq: Status: Active Protocol: Document 08/01/22 08:14 [facility] (Rec: 08/01/22 17:10 [facility] [id number]) OP Mobility Evaluation Transfers Sit to Stand without UE's OP Gait Assessment Gait Gait Assistance Required: Independent Distance (Feet) 100 Assistive Devices Assistive Device Front Wheeled Walker Orthotic/Prosthetic Devices or Brace: Yes Gait Deviations General Gait Pattern Ataxic,Decreased Stride Length ,Decreased Feet Clearance Factors Limiting Gait Function Factors Limiting Gait Function Abnormal Tonal Influences, Decreased Sensation,Decreased Strength,Poor Balance Comments Gait Comments 6 min walk test with FWW 375 ft Stair Climbing Evaluation Evaluation Level of Assist On Stairs Contact Guard Assistance Devices Stair Climbing Assistive Devices Right Railing Technique/Endurance Stair Climbing Direction Ascend and Descend Stair Climbing Technique Step Over Step Stair Climbing Set # Repetitions (reps) 1 Comments Stair Climbing Comments some difficulty with foot placement PT-OP-H Neuro Start: 07/31/22 17:00 Freq: Status: Active Protocol: Document 08/01/22 08:14 [facility] (Rec: 08/01/22 17:10 [facility] [id number]) Sensation Evaluation Gross Sensation Gross Sensation Left LE Impaired,Right LE Impaired Sensation Description Paresthesia,Numbness,Tingling, Pins & [place] Location Details Leg Light Touch Intact/Normal Proprioception (Position) Impaired Kinesthesia (Movement) Impaired Coordination Evaluation Lower Extremity Tests Right Heel on Lozoya Test Moderate Impairment Foot Tapping Test Moderate Impairment Drawing a [place] w/Foot Test Minimal Impairment PT-OP-K Range of Motion Start: 07/31/22 17:00 Freq: Status: Active Protocol: Document 08/01/22 08:14 [facility] (Rec: 08/01/22 17:10 [facility] [id number]) Cervical Spine Range of Motion Cervical Spine Active Testing Position Sitting Comments WFL PT-OP-M Strength Start: 07/31/22 17:00 Freq: Status: Active Protocol: Document 08/01/22 08:14 [facility] (Rec: 08/01/22 08:59 [facility] [id number]) Hip Strength Hip Manual Muscle Testing Right Flexion (L2) 4+ Good+ Abduction 4 Good External Rotation 4- Good- Internal Rotation 4- Good- Left Flexion (L2) 4- Good- Extension (S1) 4- Good- Abduction 4- Good- External Rotation 3+ Fair+ Internal Rotation 4- Good- Knee Strength Knee Manual Muscle Testing Right Flexion (S2) 4+ Good+ Extension (L3) 4 Good Left Flexion (S2) 4- Good- Extension (L3) 4 Good Ankle/Foot Strength Ankle and Foot Manual Muscle Testing Right Dorsiflexion (L4) 4 Good Plantarflexion (S1) 4 Good Left Dorsiflexion (L4) 4- Good- Plantarflexion (S1) 4 Good PT-OP-Q Treatments Start: 07/31/22 17:00 Freq: Status: Active Protocol: Document 08/30/22 08:46 [facility] (Rec: 08/30/22 09:27 [facility] [id number]) Gym Equipment Therapeutic Ball sitting Ball Size/Color 65 cm green Body Position Sitting Reps/Duration 6 min Comments pelvic tilt lateral tilt circles/clock ball squeeze lean back LAQ (partial) Gait Training Gait Activity trekking pole x 1 Device Used trekking pole x 1 Level of Assistance SBA Surface firm carpet Distance/Duration 75 ft Treatment Focus progression of gait, safety Comments cues for soft knees, core activation trekking poles x 2 Device Used trekking poles x 2 Level of Assistance CG to SBA Surface carpet, tile, sidewalk, gravel , dirt trail outdoors Distance/Duration 500 ft total Treatment Focus safety, sequencing for correct use, use of loops Comments 2 seated rest breaks no AD Description fwd, back, side, march, fast, walk the line Device Used hallway, UE support wall or bar PRN Level of Assistance CGA Surface tile Distance/Duration 10 min Treatment Focus safety Comments min UE support except when walking line UE's about 50% seated rest break after PT-OP-R Modalities Start: 07/31/22 17:00 Freq: Status: Active Protocol: Document 08/27/22 08:48 [facility] (Rec: 08/27/22 09:31 [facility] [id number]) Hot Pack/Cold Pack Treatment Hot Pack Location lumbosacrococcygeal Patient Position Hooklying Treatment Duration (minutes) 15 Patient Tolerance Fair Comments LE bolster support, 6 layers, hernández within reach PT-OP-T Assessment and Plan Start: 07/31/22 17:00 Freq: Status: Active Protocol: Document 08/30/22 08:46 [facility] (Rec: 08/30/22 09:27 [facility] [id number]) Physical Therapy Assessment Impairments Impairments Activity Tolerance,Balance, Coordination,Gait,Pain, Strength Goals Four Impairment pain thoracic and lumbar spines, dewayne LE's Impairment 10/15 Short Term Goal (STG) Decrease by at least 50% with all usual activities 08/27/22: pain variable, 07/16 today STG Duration 08/31/22 [place] Goal (LTG) Decrease pain by at least 75% with all usual activities for improved activity and quality of life including ability to return to work with good tolerance. LTG Duration 10/31/22 Three Impairment gait dysfunction Impairment ambulates with 4WW wearing AFO left LE step-to pattern on stairs using 1 rail Short Term Goal (STG) Patient will be able to ambulate safely on level surfaces indoors and outdoors safely with LRD 08/27/22: patient ambulating indoors with 1 cane, outdoors with 2 canes, 2 trekking poles , or 4WW. STG Duration 08/31/22 [place] Goal (LTG) Patient will be able to ambulate safely on all surfaces with LRD, and ascend/ descend stairs with alternating pattern. LTG Duration 10/31/22 Two Impairment balance dysfunction Impairment Ibrahim balance score 38/56 Short Term Goal (STG) Improve Ibrahim balance score to at least 45/56 Goal met 08/15/22 51/56 TUG 23 STG Duration 08/31/22 Goal met 08/15/22 [place] Goal (LTG) Improve Ibrahim balance score to at least 50/56 as measure of improved function and safety Goal met 08/15/22 51/56 LTG Duration 10/31/22 Goal met 08/15/22 One Impairment weakness dewayne LE's and core Short Term Goal (STG) Patient to be instructed in HEP to address strength deficits 08/27/22: good goal progress, ongoing progression STG Duration 08/31/22 [place] Goal (LTG) Patient will be independent and compliant with HEP and demonstrate improvement in LE and core muscle strength to at least 4+/5 to improve her functional mobility, safety and independence LTG Duration Assessment Summary Assessment Improving gait with dec support, able to do some walking on firm, level surface without gait device. Less pain in coccyx after therapy ball ex, patient considering obtaining therapy ball for home use. Physical Therapy Plan Frequency and Duration Frequency of Treatment 2x/Week Duration of treatment (weeks) 12 Plan of Care Start Date 08/01/22 Plan of Care End Date 10/31/22 Therapeutic Interventions Therapeutic Interventions Balance Training,Gait Training ,Home Exercise Program,Manual Therapy,Neuromuscular Re- education,Patient/Caregiver Education,Self-Care/Home Management,Therapeutic Activities,Therapeutic Exercises Modalities Cold Pack/Ice Massage,Electric Stimulation,Hot Packs, Ultrasound Next Visit Focus/Plan Next Note Type Treatment Note Next Visit Plan Continue progression of gait training on level and uneven surfaces; gait with trekking poles outdoors on uneven surfaces as able, indoors with no device as able. Core and LE strengthening. Consider floor transfer. Progress therapy ball ex sitting and supine ball under LE's
--- NOTE | 2022-09-06 12:29 | PT.OTN ---
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 (09/06/22) Physical Therapy Treatment Note PT-OP-A Visit Information Start: 07/31/22 17:00 Freq: Status: Active Protocol: Document 09/06/22 09:14 SW (Rec: 09/06/22 10:00 SW [id number]) Out-Patient Physical Therapy Visit Information Visit Information Visit Type Treatment Note Visit Start Time 09:00 Visit Stop Time 10:10 Total Visit Minutes 55 Visit Number 11 Number of TRAVEL SPECIALIST Visits 1 PT-OP-B Current Condition Start: 07/31/22 17:00 Freq: Status: Active Protocol: Document 08/02/22 10:31 SAK (Rec: 08/02/22 11:12 SAK [id number]) Current Condition History of Current Condition Onset Date 06/08/22 Current Complaints weakness History of Current Condition Started having weakness acutely 06/08/22 with no known cause. Seen at ER in [place] , sent to [facility] for evaluation and treatment. [facility] 06/08/22-07/03/22. Imaging revealed inflammation and demyelination T10 cause unknown, medical staff unable to give prognosis. Had PT, steroids, IVIG. Since discharge home has been doing exercises, walking with 4WW, wearing AFO left LE. Now having medial thigh pain dewayne like something is puching up on the muscles there. Sent home with [facility], assist. Now c/o tingling and numbness mid thigh down, recently pain front of ankles dewayne, medial thigh pain, pain T10, lumbar spine, dewayne buttocks. Has been taking 1000 mg Tylenol when goes to bed, muscle spasms and pain in groin gets worse at night. Hasn't tried ice or heat. HIstory of LBP in April 2022 top of hip bones, had MRI and saw public relations specialist; was told to lose weight, exercise, don't come back until you have sciatica. MRI at [facility] showed mostly mild degeneration throughout spine, and bulges lumbar spine. Is walking as much as she can with 4WW, 30 min at a time. Practicing on stairs 5 stairs at a time x 4 max, tapping foot on soup can, heel/toe taps, sit to stand, shoulder exercises. Wears AFO left. Uses shower/tub chair, dresses self, has control of bladder and bowels. Hopeful to be able to walk without a device again. Prior Treatments and Tests PT, IGIV and steroids in hospital. Treatment Goals Patient/Caregiver Goals Return to prior level of function; walk independently, drive. 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 Right now gets very tired easily. Return to work date put in currently for September 09. PT-OP-C Subjective Start: 07/31/22 17:00 Freq: Status: Active Protocol: Document 09/06/22 09:14 SW (Rec: 09/06/22 10:00 SW [id number]) OP-PT Subjective Patient Comments Patient Comments Started pool PT. Took trekking poles for walk in [place]. Sore in tailbone and both hip joints. Burning pain at top of thigh for the last week. PT-OP-D Balance Start: 07/31/22 17:00 Freq: Status: Active Protocol: Document 08/01/22 08:14 SAK (Rec: 08/01/22 08:59 SAK [id number]) OP-PT Balance Assessment Sitting Balance Static Sitting Balance Ability Good Dynamic Sitting Balance Ability Good Ibrahim Balance Assessment Evaluation Sitting to Standing Ability Independent w/out Hands Unsupported Stance Safely- 2 minutes Sitting Unsupported, Feet on Floor Safely- 2 minutes Standing to Sitting Ability Safely, Minimal Hand Use Transfer Ability Safely, Minimal Hand Use Unsupported Stance- Eyes Closed Supervision, 10 seconds Unsupported Stance- Eyes Open Independent, 1 minute Pick- Up Object From Floor Supervision Look Behind Shoulder - Standing Turns Sideways Only Turning 360 Degrees Turns slowly, but safely Unsupported Tandem Stance Assist to Step-15 seconds Unilateral Leg Stance Lifts Leg/Holds 5-10 secs Total Score Ibrahim Total Score (out of 56 points) 38 Pearce Fall Scale Assessment History of Falling (Immediate or No Previous) Secondary Diagnosis (More Than 2 Medical No Diagnoses in Chart) Ambulatory Aid Crutches/cane/walker Gait/Transferring Weak Mental Status Oriented to own ability Copyright Permission PT-OP-G Mobility & Gait Start: 07/31/22 17:00 Freq: Status: Active Protocol: Document 08/01/22 08:14 SAK (Rec: 08/01/22 17:10 SAK [id number]) OP Mobility Evaluation Transfers Sit to Stand without UE's OP Gait Assessment Gait Gait Assistance Required: Independent Distance (Feet) 100 Assistive Devices Assistive Device Front Wheeled Walker Orthotic/Prosthetic Devices or Brace: Yes Gait Deviations General Gait Pattern Ataxic,Decreased Stride Length ,Decreased Feet Clearance Factors Limiting Gait Function Factors Limiting Gait Function Abnormal Tonal Influences, Decreased Sensation,Decreased Strength,Poor Balance Comments Gait Comments 6 min walk test with FWW 375 ft Stair Climbing Evaluation Evaluation Level of Assist On Stairs Contact Guard Assistance Devices Stair Climbing Assistive Devices Right Railing Technique/Endurance Stair Climbing Direction Ascend and Descend Stair Climbing Technique Step Over Step Stair Climbing Set # Repetitions (reps) 1 Comments Stair Climbing Comments some difficulty with foot placement PT-OP-H Neuro Start: 07/31/22 17:00 Freq: Status: Active Protocol: Document 08/01/22 08:14 [facility] (Rec: 08/01/22 17:10 [facility] [id number]) Sensation Evaluation Gross Sensation Gross Sensation Left LE Impaired,Right LE Impaired Sensation Description Paresthesia,Numbness,Tingling, Pins & [place] Location Details Leg Light Touch Intact/Normal Proprioception (Position) Impaired Kinesthesia (Movement) Impaired Coordination Evaluation Lower Extremity Tests Right Heel on Lozoya Test Moderate Impairment Foot Tapping Test Moderate Impairment Drawing a [place] w/Foot Test Minimal Impairment PT-OP-K Range of Motion Start: 07/31/22 17:00 Freq: Status: Active Protocol: Document 08/01/22 08:14 [facility] (Rec: 08/01/22 17:10 [facility] [id number]) Cervical Spine Range of Motion Cervical Spine Active Testing Position Sitting Comments WFL PT-OP-M Strength Start: 07/31/22 17:00 Freq: Status: Active Protocol: Document 08/01/22 08:14 [facility] (Rec: 08/01/22 08:59 [facility] [id number]) Hip Strength Hip Manual Muscle Testing Right Flexion (L2) 4+ Good+ Abduction 4 Good External Rotation 4- Good- Internal Rotation 4- Good- Left Flexion (L2) 4- Good- Extension (S1) 4- Good- Abduction 4- Good- External Rotation 3+ Fair+ Internal Rotation 4- Good- Knee Strength Knee Manual Muscle Testing Right Flexion (S2) 4+ Good+ Extension (L3) 4 Good Left Flexion (S2) 4- Good- Extension (L3) 4 Good Ankle/Foot Strength Ankle and Foot Manual Muscle Testing Right Dorsiflexion (L4) 4 Good Plantarflexion (S1) 4 Good Left Dorsiflexion (L4) 4- Good- Plantarflexion (S1) 4 Good PT-OP-Q Treatments Start: 07/31/22 17:00 Freq: Status: Active Protocol: Document 09/06/22 09:14 (Rec: 09/06/22 10:00 [id number]) Therapeutic Exercises Supine Exercises Therapy Ball Supine Supine Exercise Name Therapy ball bridge Side bilateral Equipment Used Therapy Ball Reps/Minutes 3 x 5 hold Comments Cued core,glute, HS activation Sitting Exercises Seated Therapy Ball Sitting Exercise Name Pelvic tilts, clocks, circles Comments cued core stabilization, pn relief w/ clock Gait Training Gait Activity trekking poles x 2 Device Used trekking poles x 2 Level of Assistance CG to SBA Surface carpet, tile, sidewalk, gravel , dirt trail outdoors Distance/Duration 500 ft total Treatment Focus safety, sequencing for correct use, use of loops Comments 2 seated rest breaks no AD Description fwd, back, side, june, fast, walk the line Device Used // bars prn Level of Assistance CGA Surface carpet Distance/Duration 10 min Treatment Focus safety Comments min UE support except when walking line UE's about 50% seated rest break after Manual Therapy Treatment Soft Tissue Mobilization john-coccyx Body Location bilateral Mobilization Type Myofascial Release,Rolling Intensity/Depth Superficial Body Position Prone Comments pillow under ankles, R tension >L Manual Techniques Long axis distraction Body Location Bilateral LE Body Position Supine Reps/Duration 3x30 each Comments good feedback for pn PT-OP-R Modalities Start: 07/31/22 17:00 Freq: Status: Active Protocol: Document 09/06/22 09:14 (Rec: 09/06/22 11:38 [id number]) Hot Pack/Cold Pack Treatment Hot Pack Location lumbosacrococcygeal Patient Position Hooklying Treatment Duration (minutes) 15 Patient Tolerance Fair Comments betty Yu within reach PT-OP-T Assessment and Plan Start: 07/31/22 17:00 Freq: Status: Active Protocol: Document 09/06/22 09:14 (Rec: 09/06/22 10:00 [id number]) Physical Therapy Assessment Goals Four Impairment pain thoracic and lumbar spines, dewayne LE's Impairment 7/10 Short Term Goal (STG) Decrease by at least 50% with all usual activities 08/27/22: pain variable, 4/10 today STG Duration 08/31/22 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 LTG Duration 10/31/22 Three Impairment gait dysfunction Impairment ambulates with 4WW wearing AFO left LE step-to pattern on stairs using 1 rail Short Term Goal (STG) Patient will be able to ambulate safely on level surfaces indoors and outdoors safely with LRD 08/27/22: patient ambulating indoors with 1 cane, outdoors with 2 canes, 2 trekking poles , or 4WW. STG Duration 08/31/22 [facility] Goal (LTG) Patient will be able to ambulate safely on all surfaces with LRD, and ascend/ descend stairs with alternating pattern. LTG Duration 10/31/22 Two Impairment balance dysfunction Impairment Ibrahim balance score 38/56 Short Term Goal (STG) Improve Ibrahim balance score to at least 45/56 Goal met 08/15/22 51/56 TUG 23 STG Duration 08/31/22 Goal met 08/15/22 [facility] Goal (LTG) Improve Ibrahim balance score to at least 50/56 as measure of improved function and safety Goal met 08/15/22 51/56 LTG Duration 10/31/22 Goal met 08/15/22 One Impairment weakness dewayne LE's and core Short Term Goal (STG) Patient to be instructed in HEP to address strength deficits 08/27/22: good goal progress, ongoing progression STG Duration 08/31/22 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 Continued gait progression with uneven surfaces (trekking poles). Challenged with gait no AD in all directions, good reciprical LE/UE, slow nara improved with distance and cueing. Progressed core stabilization in supine w/ therapy ball, patient challenged but able to maintain form x 3 reps. Physical Therapy Plan Frequency and Duration Frequency of Treatment 2x/Week Duration of treatment (weeks) 12 Plan of Care Start Date 08/01/22 Plan of Care End Date 10/31/22 Therapeutic Interventions Therapeutic Interventions Balance Training,Gait Training ,Home Exercise Program,Manual Therapy,Neuromuscular Re- education,Patient/Caregiver Education,Self-Care/Home Management,Therapeutic Activities,Therapeutic Exercises Modalities Cold Pack/Ice Massage,Electric Stimulation,Hot Packs, Ultrasound Next Visit Focus/Plan Next Note Type Treatment Note Next Visit Plan Continue progression of gait training on level and uneven surfaces; gait with trekking poles outdoors on uneven surfaces as able, indoors with no device as able. Core and LE strengthening. Consider floor transfer. Progress therapy ball ex sitting and supine ball under LE's
--- NOTE | 2022-09-13 10:11 | PT.OTN ---
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 (09/13/22) Physical Therapy Treatment Note PT-OP-A Visit Information Start: 07/31/22 17:00 Freq: Status: Active Protocol: Document 09/13/22 09:18 SW (Rec: 09/13/22 10:11 SW [id number]) Out-Patient Physical Therapy Visit Information Visit Information Visit Type Treatment Note Visit Start Time 09:15 Visit Stop Time 10:08 Total Visit Minutes 53 Visit Number 12 Number of AUTOMOTIVE GLAZIER Visits 2 PT-OP-B Current Condition Start: 07/31/22 17:00 Freq: Status: Active Protocol: Document 08/02/22 10:31 SAK (Rec: 08/02/22 11:12 SAK [id number]) Current Condition History of Current Condition Onset Date 06/08/22 Current Complaints weakness History of Current Condition Started having weakness acutely 06/08/22 with no known cause. Seen at ER in [place] , sent to [facility] for evaluation and treatment. [facility] 06/08/22-07/03/22. Imaging revealed inflammation and demyelination T10 cause unknown, medical staff unable to give prognosis. Had PT, steroids, IVIG. Since discharge home has been doing exercises, walking with 4WW, wearing AFO left LE. Now having medial thigh pain dewayne like something is puching up on the muscles there. Sent home with [facility], assist. Now c/o tingling and numbness mid thigh down, recently pain front of ankles dewayne, medial thigh pain, pain T10, lumbar spine, dewayne buttocks. Has been taking 1000 mg Tylenol when goes to bed, muscle spasms and pain in groin gets worse at night. Hasn't tried ice or heat. HIstory of LBP in April 2022 top of hip bones, had MRI and saw juvenile justice specialist; was told to lose weight, exercise, don't come back until you have sciatica. MRI at [facility] showed mostly mild degeneration throughout spine, and bulges lumbar spine. Is walking as much as she can with 4WW, 30 min at a time. Practicing on stairs 5 stairs at a time x 4 max, tapping foot on soup can, heel/toe taps, sit to stand, shoulder exercises. Wears AFO left. Uses shower/tub chair, dresses self, has control of bladder and bowels. Hopeful to be able to walk without a device again. Prior Treatments and Tests PT, IGIV and steroids in hospital. Treatment Goals Patient/Caregiver Goals Return to prior level of function; walk independently, drive. 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 Right now gets very tired easily. Return to work date put in currently for September 09. PT-OP-C Subjective Start: 07/31/22 17:00 Freq: Status: Active Protocol: Document 09/13/22 09:18 (Rec: 09/13/22 10:11 SW [id number]) OP-PT Subjective Patient Comments Patient Comments Pt went to doctor and they said it was transverse myelitis, doctor was unable to get reflexes in knees. Back to work, sitting hurts tailbone, has donut pillow for support. PT-OP-D Balance Start: 07/31/22 17:00 Freq: Status: Active Protocol: Document 08/01/22 08:14 SAK (Rec: 08/01/22 08:59 SAK [id number]) OP-PT Balance Assessment Sitting Balance Static Sitting Balance Ability Good Dynamic Sitting Balance Ability Good Ibrahim Balance Assessment Evaluation Sitting to Standing Ability Independent w/out Hands Unsupported Stance Safely- 2 minutes Sitting Unsupported, Feet on Floor Safely- 2 minutes Standing to Sitting Ability Safely, Minimal Hand Use Transfer Ability Safely, Minimal Hand Use Unsupported Stance- Eyes Closed Supervision, 10 seconds Unsupported Stance- Eyes Open Independent, 1 minute Pick- Up Object From Floor Supervision Look Behind Shoulder - Standing Turns Sideways Only Turning 360 Degrees Turns slowly, but safely Unsupported Tandem Stance Assist to Step-15 seconds Unilateral Leg Stance Lifts Leg/Holds 5-10 secs Total Score Ibrahim Total Score (out of 56 points) 38 Pearce Fall Scale Assessment History of Falling (Immediate or No Previous) Secondary Diagnosis (More Than 2 Medical No Diagnoses in Chart) Ambulatory Aid Crutches/cane/walker Gait/Transferring Weak Mental Status Oriented to own ability Copyright Permission PT-OP-G Mobility & Gait Start: 07/31/22 17:00 Freq: Status: Active Protocol: Document 08/01/22 08:14 SAK (Rec: 08/01/22 17:10 SAK [id number]) OP Mobility Evaluation Transfers Sit to Stand without UE's OP Gait Assessment Gait Gait Assistance Required: Independent Distance (Feet) 100 Assistive Devices Assistive Device Front Wheeled Walker Orthotic/Prosthetic Devices or Brace: Yes Gait Deviations General Gait Pattern Ataxic,Decreased Stride Length ,Decreased Feet Clearance Factors Limiting Gait Function Factors Limiting Gait Function Abnormal Tonal Influences, Decreased Sensation,Decreased Strength,Poor Balance Comments Gait Comments 6 min walk test with FWW 375 ft Stair Climbing Evaluation Evaluation Level of Assist On Stairs Contact Guard Assistance Devices Stair Climbing Assistive Devices Right Railing Technique/Endurance Stair Climbing Direction Ascend and Descend Stair Climbing Technique Step Over Step Stair Climbing Set # Repetitions (reps) 1 Comments Stair Climbing Comments some difficulty with foot placement PT-OP-H Neuro Start: 07/31/22 17:00 Freq: Status: Active Protocol: Document 08/01/22 08:14 [facility] (Rec: 08/01/22 17:10 [facility] [id number]) Sensation Evaluation Gross Sensation Gross Sensation Left LE Impaired,Right LE Impaired Sensation Description Paresthesia,Numbness,Tingling, Pins & [place] Location Details Leg Light Touch Intact/Normal Proprioception (Position) Impaired Kinesthesia (Movement) Impaired Coordination Evaluation Lower Extremity Tests Right Heel on [place]oz[place] Test Moderate Impairment Foot Tapping Test Moderate Impairment Drawing a [place] w/Foot Test Minimal Impairment PT-OP-K Range of Motion Start: 07/31/22 17:00 Freq: Status: Active Protocol: Document 08/01/22 08:14 [facility] (Rec: 08/01/22 17:10 [facility] [id number]) Cervical Spine Range of Motion Cervical Spine Active Testing Position Sitting Comments WFL PT-OP-M Strength Start: 07/31/22 17:00 Freq: Status: Active Protocol: Document 08/01/22 08:14 [facility] (Rec: 08/01/22 08:59 [facility] [id number]) Hip Strength Hip Manual Muscle Testing Right Flexion (L2) 4+ Good+ Abduction 4 Good External Rotation 4- Good- Internal Rotation 4- Good- Left Flexion (L2) 4- Good- Extension (S1) 4- Good- Abduction 4- Good- External Rotation 3+ Fair+ Internal Rotation 4- Good- Knee Strength Knee Manual Muscle Testing Right Flexion (S2) 4+ Good+ Extension (L3) 4 Good Left Flexion (S2) 4- Good- Extension (L3) 4 Good Ankle/Foot Strength Ankle and Foot Manual Muscle Testing Right Dorsiflexion (L4) 4 Good Plantarflexion (S1) 4 Good Left Dorsiflexion (L4) 4- Good- Plantarflexion (S1) 4 Good PT-OP-Q Treatments Start: 07/31/22 17:00 Freq: Status: Active Protocol: Document 09/13/22 09:18 (Rec: 09/13/22 10:11 [id number]) Therapeutic Exercises Sitting Exercises Seated Therapy Ball/Core Strength Sitting Exercise Name Marches, Reciprical LE/UE Side bilateral Equipment Used Green Therapy Ball Comments CGA Seated Therapy Ball Sitting Exercise Name Pelvic tilts, clocks, circles Comments cued core stabilization, pn relief w/ clock Standing Exercises Hip Ext/Abd Side bilateral Resistance 4# Equipment Used Bar FOWL BLOOD TESTER prn Reps/Minutes x10 each Comments vc for core stability Resisted Trunk Rotation Side bilateral Resistance [place] TB>[place] TB Equipment Used Gait belt donned Reps/Minutes x 3 each side Gait Training Gait Activity no AD Description fwd, back, side, march, fast, walk the line Device Used @ rail prn Level of Assistance CGA,SBA Surface carpet Distance/Duration 10 min @ rail, x120 ft around gym Treatment Focus safety Comments min UE support except when walking line UE's about 50% seated rest break after PT-OP-R Modalities Start: 07/31/22 17:00 Freq: Status: Active Protocol: Document 09/13/22 09:18 (Rec: 09/13/22 10:11 [id number]) Hot Pack/Cold Pack Treatment Hot Pack Location lumbosacrococcygeal Patient Position Hooklying Treatment Duration (minutes) 15 Patient Tolerance Fair Comments betty Yu within reach PT-OP-T Assessment and Plan Start: 07/31/22 17:00 Freq: Status: Active Protocol: Document 09/13/22 09:18 (Rec: 09/13/22 10:11 [id number]) Physical Therapy Assessment Goals Four Impairment pain thoracic and lumbar spines, dewayne LE's Impairment 10/15 Short Term Goal (STG) Decrease by at least 50% with all usual activities 08/27/22: pain variable, /10 today STG Duration 08/31/22 Long-Term Goal (LTG) Decrease pain by at least 75% with all usual activities for improved activity and quality of life including ability to return to work with good tolerance. LTG Duration 7/26/23 Three Impairment gait dysfunction Impairment ambulates with 4WW wearing AFO left LE step-to pattern on stairs using 1 rail Short Term Goal (STG) Patient will be able to ambulate safely on level surfaces indoors and outdoors safely with LRD 08/27/22: patient ambulating indoors with 1 cane, outdoors with 2 canes, 2 trekking poles , or 4WW. STG Duration 08/31/22 Studio Producer Goal (LTG) Patient will be able to ambulate safely on all surfaces with LRD, and ascend/ descend stairs with alternating pattern. LTG Duration 10/31/22 Two Impairment balance dysfunction Impairment Ibrahim balance score 38/56 Short Term Goal (STG) Improve Ibrahim balance score to at least 45/56 Goal met 08/15/22 51/56 TUG 23 STG Duration 08/31/22 Goal met 08/15/22 Long-Term Goal (LTG) Improve Ibrahim balance score to at least 50/56 as measure of improved function and safety Goal met 08/15/22 51/56 LTG Duration 10/31/22 Goal met 08/15/22 One Impairment weakness dewayne LE's and core Short Term Goal (STG) Patient to be instructed in HEP to address strength deficits 08/27/22: good goal progress, ongoing progression STG Duration 08/31/22 Studio Producer Goal (LTG) Patient will be independent and compliant with HEP and demonstrate improvement in LE and core muscle strength to at least 4+/5 to improve her functional mobility, safety and independence LTG Duration Assessment Summary Assessment Progressed Core stabilization and LE exercises this session, tolerated well w/out increase pain. Pain level remains at a 5/10. Pt able to ambulate x120 ft w/o rest break and no AD, SBA/CGA, verbal cues required for foot clearance and stride, improved with distance. Physical Therapy Plan Frequency and Duration Frequency of Treatment 2x/Week Duration of treatment (weeks) 12 Plan of Care Start Date 08/01/22 Plan of Care End Date 10/31/22 Therapeutic Interventions Therapeutic Interventions Balance Training,Gait Training ,Home Exercise Program,Manual Therapy,Neuromuscular Re- education,Patient/Caregiver Education,Self-Care/Home Management,Therapeutic Activities,Therapeutic Exercises Modalities Cold Pack/Ice Massage,Electric Stimulation,Hot Packs, Ultrasound Next Visit Focus/Plan Next Note Type Treatment Note Next Visit Plan Continue progression of gait training on level and uneven surfaces; gait with trekking poles outdoors on uneven surfaces as able, indoors with no device as able. Core and LE strengthening. Consider floor transfer. Progress therapy ball ex sitting and supine ball under LE's
--- NOTE | 2022-09-20 12:29 | PT.OTN ---
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 (09/20/22) Physical Therapy Treatment Note PT-OP-A Visit Information Start: 07/31/22 17:00 Freq: Status: Active Protocol: Document 09/20/22 09:18 SW (Rec: 09/20/22 10:04 SW [id number]) Out-Patient Physical Therapy Visit Information Visit Information Visit Type Treatment Note Visit Start Time 09:15 Visit Stop Time 10:01 Total Visit Minutes 46 Visit Number 13 Number of CERTIFIED INDOOR ENVIRONMENTALIST Visits 3 PT-OP-B Current Condition Start: 07/31/22 17:00 Freq: Status: Active Protocol: Document 08/02/22 10:31 SAK (Rec: 08/02/22 11:12 SAK [id number]) Current Condition History of Current Condition Onset Date 06/08/22 Current Complaints weakness History of Current Condition Started having weakness acutely 06/08/22 with no known cause. Seen at ER in [place] , sent to [facility] for evaluation and treatment. [facility] 06/08/22-07/03/22. Imaging revealed inflammation and demyelination T10 cause unknown, medical staff unable to give prognosis. Had PT, steroids, IVIG. Since discharge home has been doing exercises, walking with 4WW, wearing AFO left LE. Now having medial thigh pain dewayne like something is puching up on the muscles there. Sent home with [facility], assist. Now c/o tingling and numbness mid thigh down, recently pain front of ankles dewayne, medial thigh pain, pain T10, lumbar spine, dewayne buttocks. Has been taking 1000 mg Tylenol when goes to bed, muscle spasms and pain in groin gets worse at night. Hasn't tried ice or heat. HIstory of LBP in April 2022 top of hip bones, had MRI and saw measurement specialist; was told to lose weight, exercise, don't come back until you have sciatica. MRI at [facility] showed mostly mild degeneration throughout spine, and bulges lumbar spine. Is walking as much as she can with 4WW, 30 min at a time. Practicing on stairs 5 stairs at a time x 4 max, tapping foot on soup can, heel/toe taps, sit to stand, shoulder exercises. Wears AFO left. Uses shower/tub chair, dresses self, has control of bladder and bowels. Hopeful to be able to walk without a device again. Prior Treatments and Tests PT, IGIV and steroids in hospital. Treatment Goals Patient/Caregiver Goals Return to prior level of function; walk independently, drive. 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 Right now gets very tired easily. Return to work date put in currently for September 09. PT-OP-C Subjective Start: 07/31/22 17:00 Freq: Status: Active Protocol: Document 09/20/22 09:18 SW (Rec: 09/20/22 10:04 SW [id number]) OP-PT Subjective Patient Comments Patient Comments Pt reports pain in sacrum area , sitting at work is painful, walking helps relieve the pain . PT-OP-D Balance Start: 07/31/22 17:00 Freq: Status: Active Protocol: Document 08/01/22 08:14 SAK (Rec: 08/01/22 08:59 SAK [id number]) OP-PT Balance Assessment Sitting Balance Static Sitting Balance Ability Good Dynamic Sitting Balance Ability Good Ibrahim Balance Assessment Evaluation Sitting to Standing Ability Independent w/out Hands Unsupported Stance Safely- 2 minutes Sitting Unsupported, Feet on Floor Safely- 2 minutes Standing to Sitting Ability Safely, Minimal Hand Use Transfer Ability Safely, Minimal Hand Use Unsupported Stance- Eyes Closed Supervision, 10 seconds Unsupported Stance- Eyes Open Independent, 1 minute Pick- Up Object From Floor Supervision Look Behind Shoulder - Standing Turns Sideways Only Turning 360 Degrees Turns slowly, but safely Unsupported Tandem Stance Assist to Step-15 seconds Unilateral Leg Stance Lifts Leg/Holds 5-10 secs Total Score Ibrahim Total Score (out of 56 points) 38 Pearce Fall Scale Assessment History of Falling (Immediate or No Previous) Secondary Diagnosis (More Than 2 Medical No Diagnoses in Chart) Ambulatory Aid Crutches/cane/walker Gait/Transferring Weak Mental Status Oriented to own ability Copyright Permission PT-OP-G Mobility & Gait Start: 07/31/22 17:00 Freq: Status: Active Protocol: Document 08/01/22 08:14 SAK (Rec: 08/01/22 17:10 SAK [id number]) OP Mobility Evaluation Transfers Sit to Stand without UE's OP Gait Assessment Gait Gait Assistance Required: Independent Distance (Feet) 100 Assistive Devices Assistive Device Front Wheeled Walker Orthotic/Prosthetic Devices or Brace: Yes Gait Deviations General Gait Pattern Ataxic,Decreased Stride Length ,Decreased Feet Clearance Factors Limiting Gait Function Factors Limiting Gait Function Abnormal Tonal Influences, Decreased Sensation,Decreased Strength,Poor Balance Comments Gait Comments 6 min walk test with FWW 375 ft Stair Climbing Evaluation Evaluation Level of Assist On Stairs Contact Guard Assistance Devices Stair Climbing Assistive Devices Right Railing Technique/Endurance Stair Climbing Direction Ascend and Descend Stair Climbing Technique Step Over Step Stair Climbing Set # Repetitions (reps) 1 Comments Stair Climbing Comments some difficulty with foot placement PT-OP-H Neuro Start: 07/31/22 17:00 Freq: Status: Active Protocol: Document 08/01/22 08:14 [facility] (Rec: 08/01/22 17:10 [facility] [id number]) Sensation Evaluation Gross Sensation Gross Sensation Left LE Impaired,Right LE Impaired Sensation Description Paresthesia,Numbness,Tingling, [place] Location Details Leg Light Touch Intact/Normal Proprioception (Position) Impaired Kinesthesia (Movement) Impaired Coordination Evaluation Lower Extremity Tests Right Heel on Lozoya Test Moderate Impairment Foot Tapping Test Moderate Impairment Drawing a Viola w/Foot Test Minimal Impairment PT-OP-K Range of Motion Start: 07/31/22 17:00 Freq: Status: Active Protocol: Document 08/01/22 08:14 [facility] (Rec: 08/01/22 17:10 [facility] [id number]) Cervical Spine Range of Motion Cervical Spine Active Testing Position Sitting Comments WFL PT-OP-M Strength Start: 07/31/22 17:00 Freq: Status: Active Protocol: Document 08/01/22 08:14 [facility] (Rec: 08/01/22 08:59 [facility] [id number]) Hip Strength Hip Manual Muscle Testing Right Flexion (L2) 4+ Good+ Abduction 4 Good External Rotation 4- Good- Internal Rotation 4- Good- Left Flexion (L2) 4- Good- Extension (S1) 4- Good- Abduction 4- Good- External Rotation 3+ Fair+ Internal Rotation 4- Good- Knee Strength Knee Manual Muscle Testing Right Flexion (S2) 4+ Good+ Extension (L3) 4 Good Left Flexion (S2) 4- Good- Extension (L3) 4 Good Ankle/Foot Strength Ankle and Foot Manual Muscle Testing Right Dorsiflexion (L4) 4 Good Plantarflexion (S1) 4 Good Left Dorsiflexion (L4) 4- Good- Plantarflexion (S1) 4 Good PT-OP-Q Treatments Start: 07/31/22 17:00 Freq: Status: Active Protocol: Document 09/20/22 09:18 (Rec: 09/20/22 10:04 [id number]) Therapeutic Exercises Sitting Exercises Seated Therapy Ball/Core Strength Sitting Exercise Name Marches w/UE across ches, Reciprical LE/UE, Pallof Press Side bilateral Equipment Used Green Therapy Ball Comments CGA/SBA Seated Therapy Ball Sitting Exercise Name Pelvic tilts, clocks, circles Comments cued core stabilization, pn relief w/ clock Standing Exercises Squat Standing Exercise Name mini squat Side bilateral Equipment Used @ rail Reps/Minutes x10 Comments SBA, rail prn Gait Training Gait Activity no AD Description Ambulated around gym Device Used No AD Level of Assistance CGA Surface carpet/tile Distance/Duration 2 x 120 ft Treatment Focus safety, LLE clearance Comments 2 x around gym w/out seated rest break, good self correction w/ LLE foot clearance Manual Therapy Treatment Soft Tissue Mobilization john-coccyx Body Location bilateral Mobilization Type Myofascial Release,Rolling Intensity/Depth Superficial Body Position Prone Comments pillow under ankles, R tension >L Manual Techniques Long axis distraction Body Location Bilateral LE Body Position Supine Reps/Duration 3x30 each Comments good feedback for pn PT-OP-R Modalities Start: 07/31/22 17:00 Freq: Status: Active Protocol: Document 09/20/22 09:18 (Rec: 09/20/22 10:04 [id number]) Hot Pack/Cold Pack Treatment Hot Pack Location lumbosacrococcygeal Patient Position Hooklying Treatment Duration (minutes) 15 Patient Tolerance Good Comments JANENE christianson supportbetty within reach PT-OP-T Assessment and Plan Start: 07/31/22 17:00 Freq: Status: Active Protocol: Document 09/20/22 09:18 (Rec: 09/20/22 10:04 [id number]) Physical Therapy Assessment Goals Four Impairment pain thoracic and lumbar spines, dewayne LE's Impairment 10/15 Short Term Goal (STG) Decrease by at least 50% with all usual activities 08/27/22: pain variable, / today STG Duration 08/31/22 Sdet Goal (LTG) Decrease pain by at least 75% with all usual activities for improved activity and quality of life including ability to return to work with good tolerance. LTG Duration 10/31/22 Three Impairment gait dysfunction Impairment ambulates with 4WW wearing AFO left LE step-to pattern on stairs using 1 rail Short Term Goal (STG) Patient will be able to ambulate safely on level surfaces indoors and outdoors safely with LRD 08/27/22: patient ambulating indoors with 1 cane, outdoors with 2 canes, 2 trekking poles , or 4WW. STG Duration 08/31/22 Sdet Goal (LTG) Patient will be able to ambulate safely on all surfaces with LRD, and ascend/ descend stairs with alternating pattern. LTG Duration 10/31/22 Two Impairment balance dysfunction Impairment Ibrahim balance score 38/56 Short Term Goal (STG) Improve Ibrahim balance score to at least 45/56 Goal met 08/15/22 51/56 TUG 23 STG Duration 08/31/22 Goal met 08/15/22 Sdet Goal (LTG) Improve Ibrahim balance score to at least 50/56 as measure of improved function and safety Goal met 08/15/22 51/56 LTG Duration 10/31/22 Goal met 08/15/22 One Impairment weakness dewayne LE's and core Short Term Goal (STG) Patient to be instructed in HEP to address strength deficits 08/27/22: good goal progress, ongoing progression STG Duration 08/31/22 Sdet Goal (LTG) Patient will be independent and compliant with HEP and demonstrate improvement in LE and core muscle strength to at least 4+/5 to improve her functional mobility, safety and independence LTG Duration Assessment Summary Assessment Pt in increased pain this session d/t increase in sitting at work. Started session today with manual therapy for pain relief, good response, reported decrease in pain post STM. Challenged with addition of functional LE strength exercise today, tolerated well with no increase in pain. Physical Therapy Plan Frequency and Duration Frequency of Treatment 2x/Week Duration of treatment (weeks) 12 Plan of Care Start Date 08/01/22 Plan of Care End Date 10/31/22 Therapeutic Interventions Therapeutic Interventions Balance Training,Gait Training ,Home Exercise Program,Manual Therapy,Neuromuscular Re- education,Patient/Caregiver Education,Self-Care/Home Management,Therapeutic Activities,Therapeutic Exercises Modalities Cold Pack/Ice Massage,Electric Stimulation,Hot Packs, Ultrasound Next Visit Focus/Plan Next Note Type Treatment Note Next Visit Plan Continue progression of gait training on level and uneven surfaces; gait with trekking poles outdoors on uneven surfaces as able, indoors with no device as able. Core and LE strengthening. Consider floor transfer. Progress therapy ball ex sitting and supine ball under LE's
--- NOTE | 2022-10-04 16:12 | PT.OTN ---
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 (10/04/22) Physical Therapy Treatment Note PT-OP-A Visit Information Start: 07/31/22 17:00 Freq: Status: Active Protocol: Document 10/04/22 15:03 SAK (Rec: 10/04/22 14:39 [facility] [id number]) Out-Patient Physical Therapy Visit Information Visit Information Visit Type Treatment Note Visit Start Time 15:02 Visit Stop Time 15:44 Total Visit Minutes 42 Visit Number 14 Number of PLASTIC TOOL MAKER Visits 0 Evaluation Information Evaluation Date 08/01/22 PT-OP-B Current Condition Start: 07/31/22 17:00 Freq: Status: Active Protocol: Document 08/02/22 10:31 SAK (Rec: 08/02/22 11:12 SAK [id number]) Current Condition History of Current Condition Onset Date 06/08/22 Current Complaints weakness History of Current Condition Started having weakness acutely 06/08/22 with no known cause. Seen at ER in [place] , sent to [facility] for evaluation and treatment. [facility] 06/08/22-07/03/22. Imaging revealed inflammation and demyelination T10 cause unknown, medical staff unable to give prognosis. Had PT, steroids, IVIG. Since discharge home has been doing exercises, walking with 4WW, wearing AFO left LE. Now having medial thigh pain dewayne like something is puching up on the muscles there. Sent home with [facility], assist. Now c/o tingling and numbness mid thigh down, recently pain front of ankles dewayne, medial thigh pain, pain T10, lumbar spine, dewayne buttocks. Has been taking 1000 mg Tylenol when goes to bed, muscle spasms and pain in groin gets worse at night. Hasn't tried ice or heat. HIstory of LBP in April 2022 top of hip bones, had MRI and saw senior quality assurance specialist; was told to lose weight, exercise, don't come back until you have sciatica. MRI at [facility] showed mostly mild degeneration throughout spine, and bulges lumbar spine. Is walking as much as she can with 4WW, 30 min at a time. Practicing on stairs 5 stairs at a time x 4 max, tapping foot on soup can, heel/toe taps, sit to stand, shoulder exercises. Wears AFO left. Uses shower/tub chair, dresses self, has control of bladder and bowels. Hopeful to be able to walk without a device again. Prior Treatments and Tests PT, IGIV and steroids in hospital. Treatment Goals Patient/Caregiver Goals Return to prior level of function; walk independently, drive. 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 Right now gets very tired easily. Return to work date put in currently for September 09. PT-OP-C Subjective Start: 07/31/22 17:00 Freq: Status: Active Protocol: Document 10/04/22 15:03 [facility] (Rec: 10/04/22 15:02 [facility] [id number]) OP-PT Subjective Patient Comments Patient Comments JUst got back from [place]; had lots of back spasm on the plane as well as LBP. Used walker in airport, otherwise [employer] poles. practicing without device at home. Weaning off the Baclofen. Pain persists and is going to get prescription for pelvic health PT. Also going to be starting aquatic exercise/PT soon. Compliant to HEP. Wants to focus on balance in PT today. PT-OP-D Balance Start: 07/31/22 17:00 Freq: Status: Active Protocol: Document 08/01/22 08:14 [facility] (Rec: 08/01/22 08:59 [facility] [id number]) OP-PT Balance Assessment Sitting Balance Static Sitting Balance Ability Good Dynamic Sitting Balance Ability Good Ibrahim Balance Assessment Evaluation Sitting to Standing Ability Independent w/out Hands Unsupported Stance Safely- 2 minutes Sitting Unsupported, Feet on Floor Safely- 2 minutes Standing to Sitting Ability Safely, Minimal Hand Use Transfer Ability Safely, Minimal Hand Use Unsupported Stance- Eyes Closed Supervision, 10 seconds Unsupported Stance- Eyes Open Independent, 1 minute Pick- Up Object From Floor Supervision Look Behind Shoulder - Standing Turns Sideways Only Turning 360 Degrees Turns slowly, but safely Unsupported Tandem Stance Assist to Step-15 seconds Unilateral Leg Stance Lifts Leg/Holds 5-10 secs Total Score Ibrahim Total Score (out of 56 points) 38 Pearce Fall Scale Assessment History of Falling (Immediate or No Previous) Secondary Diagnosis (More Than 2 Medical No Diagnoses in Chart) Ambulatory Aid Crutches/cane/walker Gait/Transferring Weak Mental Status Oriented to own ability Copyright Permission PT-OP-G Mobility & Gait Start: 07/31/22 17:00 Freq: Status: Active Protocol: Document 08/01/22 08:14 [facility] (Rec: 08/01/22 17:10 [facility] [id number]) OP Mobility Evaluation Transfers Sit to Stand without UE's OP Gait Assessment Gait Gait Assistance Required: Independent Distance (Feet) 100 Assistive Devices Assistive Device Front Wheeled Walker Orthotic/Prosthetic Devices or Brace: Yes Gait Deviations General Gait Pattern Ataxic,Decreased Stride Length ,Decreased Feet Clearance Factors Limiting Gait Function Factors Limiting Gait Function Abnormal Tonal Influences, Decreased Sensation,Decreased Strength,Poor Balance Comments Gait Comments 6 min walk test with FWW 375 ft Stair Climbing Evaluation Evaluation Level of Assist On Stairs Contact Guard Assistance Devices Stair Climbing Assistive Devices Right Railing Technique/Endurance Stair Climbing Direction Ascend and Descend Stair Climbing Technique Step Over Step Stair Climbing Set # Repetitions (reps) 1 Comments Stair Climbing Comments some difficulty with foot placement PT-OP-H Neuro Start: 07/31/22 17:00 Freq: Status: Active Protocol: Document 08/01/22 08:14 [facility] (Rec: 08/01/22 17:10 [facility] [id number]) Sensation Evaluation Gross Sensation Gross Sensation Left LE Impaired,Right LE Impaired Sensation Description Paresthesia,Numbness,Tingling, Pins & [place] Location Details Leg Light Touch Intact/Normal Proprioception (Position) Impaired Kinesthesia (Movement) Impaired Coordination Evaluation Lower Extremity Tests Right Heel on [place]ozoya Test Moderate Impairment Foot Tapping Test Moderate Impairment Drawing a [place] w/Foot Test Minimal Impairment PT-OP-K Range of Motion Start: 07/31/22 17:00 Freq: Status: Active Protocol: Document 08/01/22 08:14 [facility] (Rec: 08/01/22 17:10 [facility] [id number]) Cervical Spine Range of Motion Cervical Spine Active Testing Position Sitting Comments WFL PT-OP-M Strength Start: 07/31/22 17:00 Freq: Status: Active Protocol: Document 08/01/22 08:14 [facility] (Rec: 08/01/22 08:59 [facility] [id number]) Hip Strength Hip Manual Muscle Testing Right Flexion (L2) 4+ Good+ Abduction 4 Good External Rotation 4- Good- Internal Rotation 4- Good- Left Flexion (L2) 4- Good- Extension (S1) 4- Good- Abduction 4- Good- External Rotation 3+ Fair+ Internal Rotation 4- Good- Knee Strength Knee Manual Muscle Testing Right Flexion (S2) 4+ Good+ Extension (L3) 4 Good Left Flexion (S2) 4- Good- Extension (L3) 4 Good Ankle/Foot Strength Ankle and Foot Manual Muscle Testing Right Dorsiflexion (L4) 4 Good Plantarflexion (S1) 4 Good Left Dorsiflexion (L4) 4- Good- Plantarflexion (S1) 4 Good PT-OP-Q Treatments Start: 07/31/22 17:00 Freq: Status: Active Protocol: Document 10/04/22 15:03 [facility] (Rec: 10/04/22 15:03 [facility] [id number]) Gym Equipment Shuttle Balance chains red Details balance and wt shift fwd/bck Comments min UE use Therapeutic Exercises Sitting Exercises Seated Therapy Ball/Core Strength Comments HEP Seated Therapy Ball Comments HEP Gait Training Gait Activity grapevine Description to right and left Device Used gait belt, wall Level of Assistance CG to min assist Distance/Duration 6 ft x 2 each direction Treatment Focus safety, balance unpredictable command Description fwd,bck, stops, fast, slow, turns, sidesteps Device Used gait belt Level of Assistance CGA Surface carpet, tile Treatment Focus safety, balance obstacle course Surface green, blue and black foam pods, hurdles, tandem gait Distance/Duration 6x Treatment Focus safety, balance no AD Description Ambulated around gym Device Used No AD Level of Assistance CGA Surface carpet/tile Distance/Duration 2 x 150 ft Treatment Focus safety, LLE clearance Comments 2 x around gym with seated rest break Manual Therapy Treatment Soft Tissue Mobilization john-coccyx Body Location bilateral Mobilization Type Myofascial Release,Rolling Intensity/Depth Superficial Body Position Prone Comments pillow under ankles, R tension >L Manual Techniques Long axis distraction Body Location Bilateral LE Body Position Supine Reps/Duration 3x30 each Comments good feedback for pn Neuro Re-Education Treatment Balance Activities BOSU ball Details standing bal EO, EC Surface round side Equipment BOSU, parallel bars Comments CG to min assist obstacle course Details 4 box, blue, green, and black foam, hayward foam, tandem gait Comments CG to min assist for balance Balance Tests Details TUG Comments TUG 10 sec 4WW, 12 sec no device Self-Care/Home Management Treatment Education Patient Education Home Exercise Program Other Education Consider BOSU for home use PT-OP-R Modalities Start: 07/31/22 17:00 Freq: Status: Active Protocol: Document 10/04/22 15:03 [facility] (Rec: 10/04/22 15:03 [facility] [id number]) Hot Pack/Cold Pack Treatment Hot Pack Location lumbosacrococcygeal Patient Position Hooklying Treatment Duration (minutes) 15 Patient Tolerance Good Comments betty Yu within reach PT-OP-T Assessment and Plan Start: 07/31/22 17:00 Freq: Status: Active Protocol: Document 10/04/22 15:03 [facility] (Rec: 10/04/22 14:39 [facility] [id number]) Physical Therapy Assessment Goals Four Impairment pain thoracic and lumbar spines, dewayne LE's Impairment 10/15 Short Term Goal (STG) Decrease by at least 50% with all usual activities 08/27/22: pain variable, 07/16 today STG Duration 08/31/22 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 LTG Duration 10/31/22 Three Impairment gait dysfunction Impairment ambulates with 4WW wearing AFO left LE step-to pattern on stairs using 1 rail Short Term Goal (STG) Patient will be able to ambulate safely on level surfaces indoors and outdoors safely with LRD 08/27/22: patient ambulating indoors with 1 cane, outdoors with 2 canes, 2 trekking poles , or 4WW. STG Duration 08/31/22 Trailer Tank Truck Driver Goal (LTG) Patient will be able to ambulate safely on all surfaces with LRD, and ascend/ descend stairs with alternating pattern. LTG Duration 10/31/22 Two Impairment balance dysfunction Impairment Ibrahim balance score 38/56 Short Term Goal (STG) Improve Ibrahim balance score to at least 45/56 Goal met 08/15/22 51/56 TUG 23 STG Duration 08/31/22 Goal met 08/15/22 Assisted Goal (LTG) Improve Birahim balance score to at least 50/56 as measure of improved function and safety Goal met 08/15/22 51/56 LTG Duration 10/31/22 Goal met 08/15/22 One Impairment weakness dewayne LE's and core Short Term Goal (STG) Patient to be instructed in HEP to address strength deficits 08/27/22: good goal progress, ongoing progression STG Duration 08/31/22 Trailer Tank Truck Driver Goal (LTG) Patient will be independent and compliant with HEP and demonstrate improvement in LE and core muscle strength to at least 4+/5 to improve her functional mobility, safety and independence LTG Duration Assessment Summary Assessment TUG improved to 10 sec with 4WW and 12 sec without. Not wearing AFO for gait anymore. Improving gait with progression of challenged gait activities today. Mostly walking with her [employer] poles except for use of 4WW in the community including airport this past week. Able to practice walking without device at home. Required CGA to SBA for gait without device in PT today on level surfaces , CGA to min assist on uneven surfaces. Patient fatigues quickly. States prior massage not helpful, she would like to focus on balance today. Will be getting prescription for pelvic health PT and is going to start aquatic PT soon . Physical Therapy Plan Frequency and Duration Frequency of Treatment 2x/Week Duration of treatment (weeks) 12 Plan of Care Start Date 08/01/22 Plan of Care End Date 10/31/22 Therapeutic Interventions Therapeutic Interventions Balance Training,Gait Training ,Home Exercise Program,Manual Therapy,Neuromuscular Re- education,Patient/Caregiver Education,Self-Care/Home Management,Therapeutic Activities,Therapeutic Exercises Modalities Cold Pack/Ice Massage,Electric Stimulation,Hot Packs, Ultrasound Next Visit Focus/Plan Next Note Type Treatment Note Next Visit Plan Continue PT with emphasis on balance and gait training, functional LE strengthening, add diagnosis of pelvic health and schedule patient with pelvic health PT when able pending insurance requirements .
--- NOTE | 2022-10-10 16:08 | PT.OTN ---
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 (10/10/22) Physical Therapy Treatment Note PT-OP-A Visit Information Start: 07/31/22 17:00 Freq: Status: Active Protocol: Document 10/10/22 15:00 SAK (Rec: 10/10/22 16:08 [facility] [id number]) Out-Patient Physical Therapy Visit Information Visit Information Visit Type Treatment Note Visit Start Time 15:00 Visit Stop Time 15:44 Total Visit Minutes 44 Visit Number 15 Number of MANAGER DAIRY Visits 0 Evaluation Information Evaluation Date 08/01/22 PT-OP-B Current Condition Start: 07/31/22 17:00 Freq: Status: Active Protocol: Document 10/10/22 15:00 SAK (Rec: 10/10/22 16:08 [facility] [id number]) Current Condition History of Current Condition Onset Date 06/08/22 Current Complaints weakness History of Current Condition Started having weakness acutely 06/08/22 with no known cause. Seen at ER in [place] , sent to [facility] for evaluation and treatment. [facility] 06/08/22-07/03/22. Imaging revealed inflammation and demyelination T10 cause unknown, medical staff unable to give prognosis. Had PT, steroids, IVIG. Since discharge home has been doing exercises, walking with 4WW, wearing AFO left LE. Now having medial thigh pain dewayne like something is puching up on the muscles there. Sent home with [facility], assist. Now c/o tingling and numbness mid thigh down, recently pain front of ankles dewayne, medial thigh pain, pain T10, lumbar spine, dewayne buttocks. Has been taking 1000 mg Tylenol when goes to bed, muscle spasms and pain in groin gets worse at night. Hasn't tried ice or heat. HIstory of LBP in April 2022 top of hip bones, had MRI and saw access control specialist; was told to lose weight, exercise, don't come back until you have sciatica. MRI at [facility] showed mostly mild degeneration throughout spine, and bulges lumbar spine. Is walking as much as she can with 4WW, 30 min at a time. Practicing on stairs 5 stairs at a time x 4 max, tapping foot on soup can, heel/toe taps, sit to stand, shoulder exercises. Wears AFO left. Uses shower/tub chair, dresses self, has control of bladder and bowels. Hopeful to be able to walk without a device again. Prior Treatments and Tests PT, IGIV and steroids in hospital. PT-OP-C Subjective Start: 07/31/22 17:00 Freq: Status: Active Protocol: Document 10/10/22 15:00 SAK (Rec: 10/10/22 16:08 [facility] [id number]) OP-PT Subjective Patient Comments Patient Comments No new c/o. Starting aquatic exercise tomorrow, starts at [place] [facility] 10/25/22. Requesting discharge from [facility]. PT-OP-D Balance Start: 07/31/22 17:00 Freq: Status: Active Protocol: Document 08/01/22 08:14 SAK (Rec: 08/01/22 08:59 SAK [id number]) OP-PT Balance Assessment Sitting Balance Static Sitting Balance Ability Good Dynamic Sitting Balance Ability Good Ibrahim Balance Assessment Evaluation Sitting to Standing Ability Independent w/out Hands Unsupported Stance Safely- 2 minutes Sitting Unsupported, Feet on Floor Safely- 2 minutes Standing to Sitting Ability Safely, Minimal Hand Use Transfer Ability Safely, Minimal Hand Use Unsupported Stance- Eyes Closed Supervision, 10 seconds Unsupported Stance- Eyes Open Independent, 1 minute Pick- Up Object From Floor Supervision Look Behind Shoulder - Standing Turns Sideways Only Turning 360 Degrees Turns slowly, but safely Unsupported Tandem Stance Assist to Step-15 seconds Unilateral Leg Stance Lifts Leg/Holds 5-10 secs Total Score Ibrahim Total Score (out of 56 points) 38 Pearce Fall Scale Assessment History of Falling (Immediate or No Previous) Secondary Diagnosis (More Than 2 Medical No Diagnoses in Chart) Ambulatory Aid Crutches/cane/walker Gait/Transferring Weak Mental Status Oriented to own ability Copyright Permission PT-OP-G Mobility & Gait Start: 07/31/22 17:00 Freq: Status: Active Protocol: Document 08/01/22 08:14 SAK (Rec: 08/01/22 17:10 [facility] [id number]) OP Mobility Evaluation Transfers Sit to Stand without UE's OP Gait Assessment Gait Gait Assistance Required: Independent Distance (Feet) 100 Assistive Devices Assistive Device Front Wheeled Walker Orthotic/Prosthetic Devices or Brace: Yes Gait Deviations General Gait Pattern Ataxic,Decreased Stride Length ,Decreased Feet Clearance Factors Limiting Gait Function Factors Limiting Gait Function Abnormal Tonal Influences, Decreased Sensation,Decreased Strength,Poor Balance Comments Gait Comments 6 min walk test with FWW 375 ft Stair Climbing Evaluation Evaluation Level of Assist On Stairs Contact Guard Assistance Devices Stair Climbing Assistive Devices Right Railing Technique/Endurance Stair Climbing Direction Ascend and Descend Stair Climbing Technique Step Over Step Stair Climbing Set # Repetitions (reps) 1 Comments Stair Climbing Comments some difficulty with foot placement PT-OP-H Neuro Start: 07/31/22 17:00 Freq: Status: Active Protocol: Document 08/01/22 08:14 [facility] (Rec: 08/01/22 17:10 [facility] [id number]) Sensation Evaluation Gross Sensation Gross Sensation Left LE Impaired,Right LE Impaired Sensation Description Paresthesia,Numbness,Tingling, Pins & [place] Location Details Leg Light Touch Intact/Normal Proprioception (Position) Impaired Kinesthesia (Movement) Impaired Coordination Evaluation Lower Extremity Tests Right Heel on Lozoya Test Moderate Impairment Foot Tapping Test Moderate Impairment Drawing a [place] w/Foot Test Minimal Impairment PT-OP-K Range of Motion Start: 07/31/22 17:00 Freq: Status: Active Protocol: Document 08/01/22 08:14 [facility] (Rec: 08/01/22 17:10 [facility] [id number]) Cervical Spine Range of Motion Cervical Spine Active Testing Position Sitting Comments WFL PT-OP-M Strength Start: 07/31/22 17:00 Freq: Status: Active Protocol: Document 08/01/22 08:14 [facility] (Rec: 08/01/22 08:59 [facility] [id number]) Hip Strength Hip Manual Muscle Testing Right Flexion (L2) 4+ Good+ Abduction 4 Good External Rotation 4- Good- Internal Rotation 4- Good- Left Flexion (L2) 4- Good- Extension (S1) 4- Good- Abduction 4- Good- External Rotation 3+ Fair+ Internal Rotation 4- Good- Knee Strength Knee Manual Muscle Testing Right Flexion (S2) 4+ Good+ Extension (L3) 4 Good Left Flexion (S2) 4- Good- Extension (L3) 4 Good Ankle/Foot Strength Ankle and Foot Manual Muscle Testing Right Dorsiflexion (L4) 4 Good Plantarflexion (S1) 4 Good Left Dorsiflexion (L4) 4- Good- Plantarflexion (S1) 4 Good PT-OP-Q Treatments Start: 07/31/22 17:00 Freq: Status: Active Protocol: Document 10/10/22 15:00 [facility] (Rec: 10/10/22 16:08 [facility] [id number]) Gym Equipment Shuttle Balance chains red Details balance and wt shift fwd/bck, side to side Comments min UE use Therapeutic Exercises Other Exercises shakeel pose Other Exercise Name fwd and side Reps/Minutes 2x30 cat/cow Reps/Minutes 5x Therapeutic Activity Therapeutic Activity floor transfer Reps/Minutes x2 Comments yoga mat on floor, mat table for UE support SBA, cues for technique Gait Training Gait Activity trekking pole x 1 Description outdoor Level of Assistance CG to min assist Surface gravel, incline, dirt with lateral incline obstacle course Surface green, blue and black foam pods on yoga mat, hurdles, balane beam Distance/Duration 3x Treatment Focus safety, balance Comments CG to SBA for all but balance beam; CGA to min assit balance beam no AD Description Ambulated around gym Device Used No AD Level of Assistance CGA Surface carpet/tile Distance/Duration 2 x 150 ft Treatment Focus safety, LLE clearance Comments 2 x around gym with seated rest break PT-OP-R Modalities Start: 07/31/22 17:00 Freq: Status: Active Protocol: Document 10/04/22 15:03 [facility] (Rec: 10/04/22 15:03 [facility] [id number]) Hot Pack/Cold Pack Treatment Hot Pack Location lumbosacrococcygeal Patient Position Hooklying Treatment Duration (minutes) 15 Patient Tolerance Good Comments JANENE bolster support, hernández within reach PT-OP-T Assessment and Plan Start: 07/31/22 17:00 Freq: Status: Active Protocol: Document 10/10/22 15:00 [facility] (Rec: 10/10/22 16:08 [facility] [id number]) Physical Therapy Assessment Goals Four Impairment pain thoracic and lumbar spines, dewayne LE's Impairment 10/15 Short Term Goal (STG) Decrease by at least 50% with all usual activities 08/27/22: pain variable, 07/16 today 10/10/22: mostly met STG Duration 08/31/22 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 10/10/22: going to have women's health PT at [place] [facility] LTG Duration 10/31/22 Three Impairment gait dysfunction Impairment ambulates with 4WW wearing AFO left LE step-to pattern on stairs using 1 rail Short Term Goal (STG) Patient will be able to ambulate safely on level surfaces indoors and outdoors safely with LRD 08/27/22: patient ambulating indoors with 1 cane, outdoors with 2 canes, 2 trekking poles , or 4WW. 10/10/22: indoors with no device mostly, outdoors with 1-2 trekking poles, 4WW to work. Goal met. STG Duration goal met Payroll Human Resources Assistant Goal (LTG) Patient will be able to ambulate safely on all surfaces with LRD, and ascend/ descend stairs with alternating pattern. 10/10/22: able to do alternating pattern some of the time depending on fatigue LTG Duration 10/31/22 Two Impairment balance dysfunction Impairment Ibrahim balance score 38/56 Short Term Goal (STG) Improve Ibrahim balance score to at least 45/56 Goal met 08/15/22 51/56 TUG 23 STG Duration 08/31/22 Goal met 08/15/22 Care Home Goal (LTG) Improve Ibrahim balance score to at least 50/56 as measure of improved function and safety Goal met 08/15/22 51/56 LTG Duration 10/31/22 Goal met 08/15/22 One Impairment weakness dewayne LE's and core Short Term Goal (STG) Patient to be instructed in HEP to address strength deficits 08/27/22: good goal progress, ongoing progression 10/10/22: goal met STG Duration goal met Payroll Human Resources Assistant Goal (LTG) Patient will be independent and compliant with HEP and demonstrate improvement in LE and core muscle strength to at least 4+/5 to improve her functional mobility, safety and independence 10/10/22: goal progress, to continue with HEP while she does women's health PT and aquatic exercise. LTG Duration Assessment Summary Assessment Good progress, goals mostly met. Patient now to have pelvic health PT at [facility] as this clinic doesn't have openings any time soon. She will also do aquatic exercise with Krystyna Rueda at [facility].
--- OUTSIDE RECORDS SUMMARY | 2023-03-08 15:12 | XMS_ITS | Referral Summary ---
Author Name Unknown Organization [facility] Address [address] [place] [address] Care Team Providers Care Sole Edge Inker Machine Name Role Phone Greg Portillo MD Primary Care Provider [phone] Reason for Referral * Physical/ Occ/ Speech Therapy (Routine) - In Process Specialty Diagnoses / Procedures Referred By Aleksandr lafleur Referred To Contact Diagnoses Weakness of both lower extremities Myelopathy (HCC) Katharine Rudd ARNP [address] [facility] [address] [place] [address] [facility] - Physical Therapy & Rehabilitation [address], [place] [address] Referral ID Status Reason Start Date Expiration Date Visits Requested Visits Authorized [id number] In Process Specialty Services Required 08/01/2022 08/01/2023 1 1 Scheduling Instructions Referral to: [facility] PT Please be aware that while I, as your health care provider, have identified this referral as medically indicated, I cannot guarantee your insurance plan will cover it. I recommend you contact your insurance carrier to make sure this is a covered service they will pay for. Reason for Visit * Reason Comments New Patient H 4W/ODELL. F/U from h ospital stay. She is not familiar with/sure what to expect from Rehab clinic and would appreciate an orientation/explanation of what to expect. Spasticity * Rehab (Routine) - In Process Specialty Diagnoses / Procedures Referred By Aleksandr t Referred To Contact Diagnoses Weakness of both lower extremities Myelopathy (HCC) Rajiv Otero DO [address] [place] [address] [facility] [address] [place] [address] Referral ID Status Reason Start Date Expiration Date Visits Requested Visits Authorized [id number] In Process Reviewed 07/02/2022 07/02/2023 1 1 Encounter Details Date Type Department Care Team Description 08/01/2022 Telemedicine Formerly [facility] [address] [place], [place] [id number] Katharine Rudd ARNP [address] [place] [phone] Dx: Weakness of both lower extremities Allergies Active Allergy Reactions Severity Noted Date Comments Gluten Meal Other,GI: Pain/diarrhea,GI:Nausea/ vomiting Medium 02/20/2017 NAUSEA STOMACH ISSUES NAUSEA STOMACH ISSUES NAUSEA STOMACH ISSUES NAUSEA STOMACH ISSUES NAUSEA STOMACH ISSUES Pollen Extract Other Low 09/24/2016 Sore throat, watery runny eyes Sore throat, watery runny eyes Sulfa Antibiotics Skin: Rash Medium 09/24/2016 Rash on arm documented as of this encounter (statuses as of 08/02/2022) Medications Medication Sig Dispensed Refills Start Date End Date Status DULoxetine [address] capsule Take 1 capsule (60 mg) by mouth daily. 0 Active cholecalciferol 25 mcg (1,000 unit) tablet Take 1 tablet (1,000 units) by mouth daily. 0 06/19/2022 Active Additional Information Patient not taking.Reason: Other, Reported on 08/01/2022 eletriptan 20 MG tablet Take 1 tablet (20 mg) by mouth every 2 hours as needed (at onset of migraine/headache) . May repeat dose once in 2 hours if no relief. 0 06/18/2022 Active simethicone 80 MG chewable tablet Chew and swallow 1 tablet (80 mg) by mouth 4 times a day as needed for gas. 0 06/18/2022 Active Additional Information Patient not taking.Reason: Other, Reported on 08/01/2022 acetaminophen 500 MG tabletIndications: Migraine with aura and without status migrainosus, not intractable Take 1 tablet (500 mg) by mouth every 6 hours as needed for mild pain, moderate pain or severe pain. 120 tablet 0 07/02/2022 3 Active Additional Information Patient taking differently: 1,000 mgOralNightly, (No PRN reasons reported), Reason: Other, Reported on 08/01/2022 baclofen 5 MG tabletIndications: Paraplegia (HCC),Weakness of both lower extremities,Myelop athy (HCC) Take 3 tablets (15 mg) by mouth every morning AND 3 tablets (15 mg) every afternoon AND 4 tablets (20 mg) at bedtime. 300 tablet 0 07/02/2022 Active hydrocortisone 1 % creamIndications:U rticaria Apply topically 2 times a day as needed for itching. Apply to itchy skin 28.35 g 0 07/02/2022 3 Active melatonin 3 MG tabletIndications: Myelopathy (HCC) Take 1 tablet (3 mg) by mouth at bedtime. 30 tablet 0 07/02/2022 [address] Active omeprazole [address] capsuleIndications :Myelopathy (HCC) Take 1 capsule (40 mg) by mouth 2 times a day before meals. 60 capsule 0 07/02/2022 Active polyethylene glycol 3350 17 GM/SCOOP oral powderIndications: Myelopathy (HCC) Fill cap with powder to the 17 gram geneva and dissolve in 8 ounces of water. Drink 1 time a day for constipation 476 g 0 07/03/2022 3 Active senna 8.6 MG tabletIndications: Myelopathy (HCC) Take 2 tablets (17.2 mg) by mouth 2 times a day. 120 tablet 0 07/02/2022 3 Active traZODone 50 MG tabletIndications: Weakness of both lower extremities,Myelop athy (HCC) Take 0.5 tablets (25 mg) by mouth at bedtime. 15 tablet 0 07/02/2022 Active Additional Information Patient not taking.Reason: Other, Reported on 08/01/2022 apixaban 5 MG tabletIndications: Single subsegmental pulmonary embolism without acute cor pulmonale (HCC) Take 1 tablet (5 mg) by mouth every 12 hours. 60 tablet 0 07/02/2022 Active cetirizine 10 MG capsule every 24 hours. 0 Active fluticasone furoate (Flonase Sensimist) 27.5 MCG/SPRAY nasal spray Flonase Sensimist 27.5 mcg/actuation nasal spray,suspension Take as needed by nasal route. 0 Active lidocaine 4 % patchIndications:C hronic right-sided low back pain, unspecified whether sciatica present Apply 2 patches onto the skin daily as needed (pain). Apply to painful area for up to 12 hours in a 24 hour period. 60 patch 0 07/02/2022 3 Additional Information Patient not taking.Reason: Other, Reported on 08/01/2022 documented as of this encounter (statuses as of 08/02/2022) Active Problems Problem Noted Date Paraplegia 06/18/2022 Myelopathy 06/17/2022 Weakness of both lower extremities 06/17 Single subsegmental pulmonary embolism w ithout acute cor pulmonale 06/17/2022 Overview: LLL subsegmental PE on 06/14/22 in the setting of lower extremity weakness, will complete 3 month course apixaban Bowel and bladder incontinence 3 Migraine with aura and without status mi grainosus, not intractable 06/17/2022 documented as of this encounter (statuses as of 08/02/2022) Social History Tobacco Use Types Packs/Day Years Used Date Smoking Tobacco: Never Smokeless Tobacco: Never Tobacco Cessation:Counseling Given: Not Answered Alcohol Use Standard Drinks/Week Comments Not Currently 0 (1 standard drink = 0.6 oz pur e alcohol) Transportation Needs Answer Date Record ed In the past 12 months, has l ack of transportation kept you from medical appointments or from getting medications? No 06/07 In the past 12 months, has l ack of transportation kept you from meetings, work, or getting things needed for daily living? No 07/03/2022 Sex Assigned at Date Recorded Not on file documented as of this encounter Progress Notes * Katharine Rudd NATIONAL SALES CONSULTANT - 08/01/2022 9:50 AM PDT Distant Site Telemedicine Encounter I conducted this encounter via secure, live, [id number] video conference with the patient. I reviewed the risks and benefits of telemedicine as pertinent to this visit and the patient agreed to proceed. Provider Location: On-site location (clinic, hospital, on-site office) Patient Location: At home Present with patient: No one else present Physiatry (PM&R) at [facility] The following portions of the patient's history were reviewed with the patient and updated as appropriate: problem list, current medications, allergies, past medical history, past surgical history, past social history and past family history. IDENTIFICATION. 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 She underwent an extensive work up ( noted in the discharge summary of 06/18/2022. Her hospitalization include pulmonary embolism now on Apixaban 5 mg BID x 3 months (to 09/22/22). She was admitted to inpatient rehab 06/18-07/03/22 for impaired mobility strength ADL spasticity, discharged home with outpatient therapies. CHIEF COMPLAIN. Hospital discharge f/u INTERVAL HISTORY --Therapies. Recommended OT and PT from discharge note. [facility]. Scheduled for 2 x week therapy. --FUNCTION HISTORY. Mobility. Doing well, making progress. PT today recommended to patient to use the walker for long distance, and a cane for in-home, and no longer recommending to wear the L AFO. She feels comfortableand stable enough with the recommendation. She is to use the walker when out the home. No stairs athome. ADL. Uses the shower chair, able to use the kitchen, moving around the house comfortably. No set back -NEUROLOGICAL UE intact, full sensation and strength. LE's improving. Sensation changes is present sometimes interfering with sleep. Tingling sensation at the tailbone ( 5/10 in severity) and mid thigh to toes (3/10 in severity). Pain sensation changes are constant, on Duloxetine 60 mg daily. -SPASTICITY. Getting spasms at night from hips down, some nights none. Hip and groin tight, provided with PT stretches. Baclofen was 15 mg- 15 mg- 20 mg, now 20 mg TID -RESPIRATORY/CARDIAC. S/p PE, on Apixaban 5 mg BID x 3 months (to 09/22/22). -NEUROGENIC BOWEL. Struggled at first. After leaving the hospital stopped senna and miralax but developed constipation. Resumed senna and later on Miralax. Now having regular evening bowel movement. Duration 10 min max. No incontinence -NEUROGENIC BLADDER. Voids about every 2 hours, some urgency as if she holds may have an incontinence. No UTI or incontinence reported. -SKIN. No skin issue -PSYCHOLOGICAL Sleep. Some good night of sleep some bad. Was using trazodone, and stopped as it was too difficult to wake up in the morning. Up by 9 AM usually Mood. Hard time to settle down, some fears still. Sees a counselor. --EQUIPMENT AND SUPPLIES -walker for long distance, transitioned to a cane for within the home. -AFO. Off AFO per PT at [facility] Allergies and Medications: Reviewed with the patient as documented and updated as appropriate in [facility]. Past Medical History, Social History, Family History: Documented in [facility] REVIEW OF SYSTEMS. Reviewed --Positive for in the past month: Neuropathic pain --Negative for in the past month: fall EXAMINATION CONST: Pleasant. Sitting comfortably. NAD. HEENT: Atraumatic. Hearing adequate for conversation. SKIN: Skin coloration is well maintained. No facial rashes that I could see on the video RESP: Breathing without respiratory effort on room air. No supraclavicular retraction, speaks if full uninterrupted sentence. PSYCH: Appropriate. Cooperative. Normal mood and affect. NEURO: Strength: Grossly normal throughout head/neck and Bilateral UE. LE some weakness of the HF. ADF/APF good ROM on the video, at least a 3/5 Gait. Impaired gait, slower gait, appears on the video to have weakness R>L, but good foot placement, and some heel to toe progression. At risk of falls if tries to walk faster. Cognition: A&O to self and visit. Cranial nerves: Grossly intact with no facial droop. EOM grossly intact. Speech: Normal tone and volume. No dysarthria. Movements: No tremors observed. PERTINENT IMAGING AND TESTS REVIEWED. Reviewed in [facility] MRA T spine, CT chest, MRI C-T spine all from 06/09-06/16/2022 ASSESSMENT Gina Betancur is a 51 years old female, status post progressive ascending symmetric lower extremityweakness, most likely from an inflammatory process, [facility]. Patient making progress since her hospital discharge, has had no set back. She continues to have spasms and spasticity, has seen her PCP for medication refill and just started PT. Discussed the nature of the spasticity and or hyperactive spinal reflexes causing spasms, discussedthe general treatment plan with stretches and medication, and the possible triggers of spasticity from new pathology to UTI or constipation to name a few. PLAN Continue Baclofen 20 TID and can increase to QID if needed for spasms management Start BID ROM of the LE's for spasms management Continue Duloxetine 60 mg daily for pain management, tingling sensation to LEs Request PCC to reach out to Neurology at to schedule an appointment Medicine [facility] [address], [address] [place] [id number] Schedule an appointment as soon as possible for a visit in 4 week(s) Follow up with a BUSINESS INSURANCE AGENT/Autoimmune specialist. Clinic will contact you for scheduling. If you do not hear from them in two business days, please call to follow up Patient asking to send the discharge summary and PT notes to [facility] [address] [place], [place] [id number] Requesting PCC to download the requested copies and send to [facility] Continue laxative and daily bowel program Continue regular void, every 2-3 hours, recommending to avoid holding or postponing to void as thiscan lead to incontinence Return to clinic. 09/20/[address] Marivel Stauffer documented in this encounter Plan of Treatment Upcoming Encounters Date Type Specialty Care Team Description 09/20/2022 Telemedicine Physical Medicin e and Rehabilitation Marivel Stauffer MD [id number] [place] [address] Scheduled Referrals Name Type Priority Associated Diagnoses Orde r Schedule Referral to Physical Therapy - Neurologic (TBI, SCI, MS, Stroke) Referral Routine Weakness of both lower extremities Myelopathy (HCC) Expected: 08/01/2022, Expires: 08/02/2023 documented as of this encounter Visit Diagnoses Diagnosis Weakness of both lower extremities Myelopathy (HCC) Unspecified disease of spinal cord documented in this encounter Advance Directives For more information, please contact: [phone] Latest Code Status on File Code Status Date Activated Date Inactivated Comments Full Code 06/18/2022 1:49 PM 07/03/2022 4:32 PM Code Status History Code Status Date Activated Date Inactivated Comments Full Code 06/09/2022 3:31 PM 06/18/2022 1:48 PM Care Teams Sole Edge Inker Machine Relationship Specialty Start Date End Date Greg Portillo MD [address], [address] [place] [address] PCP - General Internal Medicine 06/12/22 documented as of this encounter
== END 2022-10-16 10:03 | disposition home or self-care (01) ==
LOC: PHYS 15:00
PROVIDERS: Family Provider Nurse Practitioner Family; PCP Student in an Organized Health Care Education/Training Program; Referring Provider Nurse Practitioner Family; Visit Provider Nurse Practitioner Family
DX: G37.3 Acute transverse myelitis in demyelinating disease of central nervous system (principal)
CPT/HCPCS: 97110; 97112; 97116; 97140; 97162; 97535

== ENCOUNTER → 2023-02-20 08:16 | Outpatient (CLI) | payer OTHER, SELFPAY ==
--- NOTE | 2023-02-20 | DI.MG.S_ITS ---
BILATERAL DIGITAL SCREENING MAMMOGRAM 3D/2D WITH CAD: 02/20/2023 CLINICAL: Routine screening. No prior exams were available for comparison. Both breasts are heterogeneously dense, which may obscure small masses (category c / 51-75% glandular tissue). Current study was also evaluated with a Computer Aided Detection (CAD) system. No significant masses, calcifications, or other findings are seen in either breast. IMPRESSION: NEGATIVE There is no mammographic evidence of malignancy. A 1 year screening mammogram is recommended. Based on the Tyrer Cuzick model (a risk assessment model) the patient's lifetime risk is 13.2% and her 10 year risk is 3.3%. According to the ACR, ACS, and NCCN guidelines, an annual breast MRI exam along with mammogram is recommended if the patient's lifetime risk is 20% or greater. This exam was interpreted at Station ID: [id number]. NOTE: For mammograms, a report in lay terms will be sent to the patient. Approximately 15% of breast malignancies will not be visualized mammographically. In the management of a palpable breast mass, a negative mammogram must not discourage biopsy of a clinically suspicious lesion. Electronically Signed By: Silver gibbons/maria guadalupe:02/20/2023 12:51:59 letter sent: Normal Exam ACR BI-RADS Category 1: Negative [id number]
== END ==
PROVIDERS: Referring Provider Student in an Organized Health Care Education/Training Program; Visit Provider Student in an Organized Health Care Education/Training Program
DX: Z12.31 Encounter for screening mammogram for malignant neoplasm of breast (principal)
CPT/HCPCS: 77063; 77067

== ENCOUNTER → 2023-06-24 08:45 | Outpatient (CLI) | payer OTHER, SELFPAY ==
[2023-06-24 09:39] LABS: Add Manual Diff / Slide Review NO; Basophils Absolute Auto 100 /uL (0-100); Basophils Percent Auto 0.6 % (0-2); Eosinophils Absolute Auto 200 /uL (0-450); Eosinophils Percent Auto 1.8 % (2-4); Hematocrit 37.2 % (36-46); Hemoglobin 12.7 g/dL (12.0-16.0); Lymphocytes Absolute Auto 2400 /uL (1100-4500); Lymphocytes Percent Auto 25.9 % (25-40); Mean Corpuscular HGB Conc 34.3 % (30-36); Mean Corpuscular Hemoglobin 29.4 PG (26-34); Mean Corpuscular Volume 85.7 fL (80-100); Monocytes Absolute Auto 800 /uL (0-900); Monocytes Percent Auto 8.6 % (3-14); Neutrophils Absolute Auto 5800 /uL (1500-7000); Neutrophils Percent Auto 63.1 % (50-75); Platelet Count 325 X10^3/uL (150-400); Red Blood Cell Count 4.34 X10^6/uL (4.0-5.2); Red Cell Distribution Width 13.1 % (11.6-14.8); White Blood Cell Count 9.3 X10^3/uL (4.5-11.0)
[2023-06-24 10:06] LABS: Alanine Aminotransferase 21 IU/L (<35); Albumin 3.9 g/dL (3.5-5.0); Albumin Globulin Ratio 1.3 (1.0-2.8); Alkaline Phosphatase 82 U/L (38-126); Aspartate Aminotransferase 20 IU/L (14-36); BUN Creatinine Ratio 13.8 (6-22); Bilirubin Total 0.4 mg/dL (0.2-1.3); Blood Urea Nitrogen 11 mg/dL (7-17); Calcium 8.9 mg/dL (8.4-10.2); Carbon Dioxide 27 mmol/L (22-32); Chloride 105 mmol/L (98-107); Estimated Glomerular Filt Rate > 60 mL/min (>60); Globulin 2.9 g/dL (1.7-4.1); Glucose 91 mg/dL (70-100); HEMOLYSIS < 15 (0-50); Lipase 218 U/L (23-300); Potassium 4.5 mmol/L (3.4-5.1); Sodium 136 mmol/L (137-145); Total Protein 6.8 g/dL (6.3-8.2)
[2023-06-24 12:00] LABS: Appearance Urine UA CLEAR; Bilirubin Urine UA NEGATIVE (NEGATIVE); Color Urine UA YELLOW; Glucose Urine UA NEGATIVE (Negative); Ketones Urine UA NEGATIVE (NEGATIVE); Leukocyte Esterase Urine UA NEGATIVE (NEGATIVE); Nitrite Urine UA NEGATIVE (Negative); Occult Blood Urine UA NEGATIVE (Negative); Protein Urine UA NEGATIVE (Negative); Specific Gravity Urine UA <=1.005 (1.000-1.035); Urobilinogen Urine UA 0.2 E.U./dL (0.2); pH Urine UA 5.5 (4.5-8.0)
[2023-06-24 12:01] LABS: Urine Volume 10mL (spun)
[2023-06-24 12:02] LABS: Bacteria Urine None Seen; Culture Indicated Urine Cult Not Indicated; RBC Urine None Seen (0-5/HPF); Squamous Epithelial Cell Urine None Seen (0-5/HPF); WBC Urine None Seen (0-5/HPF)
== END ==
PROVIDERS: PCP Family Medicine; Referring Provider Family Medicine; Visit Provider Family Medicine
DX: T38.0X1A Poisoning by glucocorticoids and synthetic analogues, accidental (unintentional), initial encounter (principal); R10.9 Unspecified abdominal pain
CPT/HCPCS: 36415; 80053; 81001; 83690; 85025

== ENCOUNTER → 2023-07-29 09:06 | Outpatient (CLI) | payer OTHER, SELFPAY ==
[2023-07-29 10:36] LABS: Cholesterol 210 mg/dL (140-199); HDL Cholesterol 53 mg/dL (40-60); LDL Cholesterol Calculated 107 mg/dL (<100); Triglycerides 249 mg/dL (35-150)
[2023-07-29 10:51] LABS: Vitamin D 25 Hydroxy (D3) 41.7 ng/mL (30.0-100.0)
== END ==
LOC: LAB 09:07
PROVIDERS: PCP Family Medicine; Referring Provider Family Medicine; Visit Provider Family Medicine
DX: E78.2 Mixed hyperlipidemia (principal); G37.3 Acute transverse myelitis in demyelinating disease of central nervous system
CPT/HCPCS: 36415; 80061; 82306

== ENCOUNTER → 2023-10-22 15:21 | Outpatient (CLI) | payer OTHER, SELFPAY ==
--- NOTE | 2023-10-22 15:22 | DI.RAD.S_ITS ---
PROCEDURE: XR SACROILIAC JOINT MIN 3V INDICATIONS: pain TECHNIQUE: 3 views of the sacroiliac joints were acquired. COMPARISON: None. FINDINGS: Bones: Mild bilateral sacroiliac joint osteoarthritic changes are seen with joint space narrowing and subchondral sclerosis. No bony erosions or ankylosis. No suspicious bony lesions. No fractures. Soft tissues: Overlying bowel gas pattern is normal. No suspicious soft tissue densities. IMPRESSION: Mild bilateral sacroiliac joint osteoarthritis slightly worse on the right side. No bony erosion or ankylosis. No fracture or dislocation. Dictated by: Judson Arenas M.D. on 10/22/2023 at 16:52 Approved by: Judson Arenas M.D. on 10/22/2023 at 16:52
== END ==
PROVIDERS: PCP Family Medicine; Referring Provider Family Medicine; Visit Provider Family Medicine
DX: M46.1 Sacroiliitis, not elsewhere classified (principal); M53.3 Sacrococcygeal disorders, not elsewhere classified; G89.29 Other chronic pain
CPT/HCPCS: 72202

== ENCOUNTER 2024-03-03 15:07 | Outpatient (CLI) | payer OTHER, SELFPAY ==
[2024-03-03] VITALS (11 sets, daily range): BP systolic 138–183; BP diastolic 73–90; PULSE 76–93; RESP 14–20; TEMP 36.4; O2SAT 96–100
--- NOTE | 2024-03-03 15:08 | DI.RAD.S_ITS ---
PROCEDURE: PAIN L/S TRANSFORAM INJECT PRINCESS COMPARISON: None. INDICATIONS: Bilateral L2/3 transforaminal QUIRINO Findings and impression: Fluoroscopic guidance performed for bilateral L2-L3 transforaminal injection. Needle positioning confirmed with contrast. Please see procedure note for full details. Dictated by: George Stark M.D. on 03/03/2024 at 20:37 Approved by: George Stark M.D. on 03/03/2024 at 20:37
[2024-03-03] MEDS: MIDAZOLAM 2 MG/2 ML VIAL IV (16:49)
[2024-03-03] MEDS: iopamidoL 15 ML VIAL 3 ML INJ (16:54)
[2024-03-03] MEDS: BUPIVACAINE 0.25% (PF) VIAL 2 ML INJ (16:54)
[2024-03-03] MEDS: BETAMETHASONE 30 MG/5 ML MDV 12 MG INJ (16:54)
[2024-03-03] MEDS: DEXAMETHASONE 10 MG/ML VIAL 20 MG INJ (16:55)
[2024-03-03] MEDS: MIDAZOLAM 5 MG/ML VIAL 1 MG IV (16:57)
--- NOTE | 2024-03-03 17:14 | PM.PROC.IR.1 ---
Date/Time/Diagnoses Date of procedure: 03/03/24 Time of procedure: 17:14 Pre-procedure diagnosis: 1. FORAMINAL STENOSIS WITH LE SYMPTOMS Post-procedure diagnosis: same Procedure Notes Procedure: 1. FLUOROSCOPICALLY GUIDED CONTRAST CONTROLLED TRANSFORAMINAL EPIDURAL STEROID INJECTION - BILATERAL L2/3 TFESI Indications: is referred by Dr. Summers for treatment of Foraminal Stenosis with bilateral LE Symptoms Physician: Moreno Cooper Total Fluoroscopy time (seconds): 12 Total sedation minutes: 18 Complications: none Procedure in detail & Post-procedure care: FINDINGS Foraminal Nerve Root Compression secondary to disc disease and facet hypertrophy DESCRIPTION OF PROCEDURE Following review of allergy and review of potential side effects and complications, including, but not necessarily limited to, infection, allergic reaction, local tissue breakdown, stroke, temporary or permanent nerve injury, paralysis, and possible , the patient indicated that the patient understood and agreed to proceed. An informed consent document was signed by the patient, witnessed by a nurse, and placed in the patient's chart. Additionally, other treatment options including medications, modalities, and physical therapy were reviewed with the patient. After review of previous anaesthesic history and IV conscious sedation the patient was deemed safe to proceed with today?s procedure with IV conscious sedation as ASA class II designation. Safety time-out was performed to confirm patient ID, procedure to be performed and site of procedure. IV sedation was accomplished with a combination of 3mg of Versed was administered by the RN after DO order, titrated to patient comfort during the course of the procedure while the patient remained responsive to all verbal commands In the prone position following sterile prep and drape of the lumbar region, the right L3/4 posterior neuroforamen was identified fluoroscopically. The skin was anesthetized via a 25-gauge 1.5-inch needle with 1% lidocaine solution. At this point, a 25-gauge 3.5-inch spinal needle was atraumatically introduced and advanced under fluoroscopic guidance through the posterior right L3/4 neuroforamen to approximately the anterior aspect of the canal. Depth was confirmed on lateral view. Following negative aspiration, injection of approximately 1.5cc of Isovue 200 under live fluoroscopy in the AP view confirmed excellent flow along the nerve root, into the epidural space without vascular or intrathecal uptake observed Radiological data, including multiple fluoroscopic views of the lumbosacral spine, reveal a spinal needle at the right L3/4 posterior neuroforamen. Subsequent views show flow of contrast material flowing superiorly and inferiorly along the nerve root confirming epidural flow. Subsequently, a test dose of 1.5cc of 1% lidocaine solution was administered and patient was observed for two minutes for signs or symptoms of complications, including abdominal pain, shortness of breath, bilateral upper or lower extremity weakness, nausea and vomiting, prior to steroid injection. At this point, a total of 2cc or 10mg of dexamethasone and 6mg betamethasone was injected without incident. Attention was then refocused to the left L3/4 level where the identical procedure was replicated. The procedure tolerated the procedure well without signs or symptoms of complications prior to transfer to the recovery area continued monitoring without incident. The patient was then transferred to the recovery area where they were observed for an appropriate time after the injection. The patient reported a VAS score of 7 prior to the procedure and a post-procedure VAS of 0. POST OP INSTRUCTIONS The patient was provided a Pain Log to continue to record their response to the target-specific procedure prior to follow-up visit with their referring physician. Additionally, specific post-injection care instructions and a contact number to our office were provided if concerns arise regarding possible complications associated with the procedure are suspected.
== END 2024-03-03 17:40 | disposition home or self-care (01) ==
LOC: RAD 15:08
PROVIDERS: PCP Family Medicine; Referring Provider Physical Medicine & Rehabilitation; Visit Provider Physical Medicine & Rehabilitation
DX: M48.061 Spinal stenosis, lumbar region without neurogenic claudication (principal); M51.16 Intervertebral disc disorders with radiculopathy, lumbar region; M47.26 Other spondylosis with radiculopathy, lumbar region
CPT/HCPCS: 64483; 99152; J0702; J1100; J2250; J3490

== ENCOUNTER → 2024-03-06 08:31 | Outpatient (CLI) | payer OTHER, SELFPAY ==
--- NOTE | 2024-03-06 | DI.MG.S_ITS ---
BILATERAL DIGITAL SCREENING MAMMOGRAM 3D/2D WITH CAD: 03/06/2024 CLINICAL: Routine screening. Comparison is made to exam dated: 02/20/2023 mammogram - . The breasts are heterogeneously dense, which may obscure small masses (category c / 51-75% glandular tissue). Current study was also evaluated with a Computer Aided Detection (CAD) system. No significant masses, calcifications, or other findings are seen in either breast. There has been no significant interval change. IMPRESSION: NEGATIVE There is no mammographic evidence of malignancy. A 1 year screening mammogram is recommended. Based on the Tyrer Cuzick model (a risk assessment model) the patient's lifetime risk is 13.1% and her 10 year risk is 3.4%. According to the ACR, ACS, and NCCN guidelines, an annual breast MRI exam along with mammogram is recommended if the patient's lifetime risk is 20% or greater. This exam was interpreted at Station ID: [id number]. NOTE: For mammograms, a report in lay terms will be sent to the patient. Approximately 15% of breast malignancies will not be visualized mammographically. In the management of a palpable breast mass, a negative mammogram must not discourage biopsy of a clinically suspicious lesion. Electronically Signed By: Val cabral/maria guadalupe:03/06/2024 11:23:25 letter sent: Normal Exam ACR BI-RADS Category 1: Negative
== END ==
PROVIDERS: PCP Family Medicine; Referring Provider Family Medicine; Visit Provider Family Medicine
DX: Z12.31 Encounter for screening mammogram for malignant neoplasm of breast (principal); R92.333 Mammographic heterogeneous density, bilateral breasts
CPT/HCPCS: 77063; 77067

== ENCOUNTER → 2024-03-20 17:24 | Outpatient (CLI) | payer OTHER, SELFPAY | PROVIDERS: PCP Family Medicine; Referring Provider Nurse Practitioner Family; Visit Provider Nurse Practitioner Family | DX: R30.0 Dysuria (principal); N94.89 Other specified conditions associated with female genital organs and menstrual cycle | CPT/HCPCS: 87086; 87210 ==

== ENCOUNTER 2024-04-30 08:18 | Outpatient (CLI) | payer OTHER, SELFPAY ==
[2024-04-30] VITALS (9 sets, daily range): BP systolic 108–122; BP diastolic 55–72; PULSE 73–86; RESP 11–18; TEMP 36.4; O2SAT 98–100
--- NOTE | 2024-04-30 08:18 | DI.RAD.S_ITS ---
PROCEDURE: PAIN L INTERLAMINAR/CAUDAL INJ INDICATIONS: L1/2 TL QUIRINO COMPARISON: None. FINDINGS/IMPRESSION: Fluoroscopic spot filming was performed to verify placement of spinal needles at the L1-2 level(s), as labeled on the films. Appropriate location(s) of the needle tip(s) was confirmed by injection of iodinated contrast. Dictated by: Val Paris M.D. on 05/01/2024 at 8:50 Approved by: Val Paris M.D. on 05/01/2024 at 8:50
[2024-04-30] MEDS: MIDAZOLAM 2 MG/2 ML VIAL IV (09:05)
[2024-04-30] MEDS: BETAMETHASONE 30 MG/5 ML MDV 12 MG INJ (09:17)
[2024-04-30] MEDS: iopamidoL 15 ML VIAL 3 ML INJ (09:17)
[2024-04-30] MEDS: DEXAMETHASONE 10 MG/ML VIAL INJ (09:18)
[2024-04-30] MEDS: BUPIVACAINE 0.25% (PF) VIAL 2 ML INJ (09:18)
--- NOTE | 2024-04-30 09:25 | P.PCN_ITS ---
Date/Time/Diagnoses Date of procedure: 04/30/24 Time of procedure: 09:25 Pre-procedure diagnosis: 1. HNP WITH RADICULAR FEATURES, 2. MULTILEVEL CENTRAL STENOSIS, Post-procedure diagnosis: same Procedure Notes Procedure: 1. FLUOROSCOPICALLY GUIDED CONTRAST CONTROLLED INTERLAMINAR EPIDURAL STEROID INJECTION - L1/2 Indications: is referred by Dr. Summers for treatment of Bilateral Foraminal Stenosis L>R LE symptoms. Physician: Moreno Cooper Total Fluoroscopy time (seconds): 9 Total sedation minutes: 14 Complications: none Procedure in detail & Post-procedure care: FINDINGS Multilevel Central Spinal Stenosis with Nerve Root Compression DESCRIPTION OF PROCEDURE Fluoroscopically guided, contrast-controlled L1/2 translaminar epidural steroid injection. Following review of allergy and review of potential side effects and complications, including, but not necessarily limited to, infection, allergic reaction, local tissue breakdown, temporary as well as permanent nerve injury, paralysis, stroke and possible , the patient indicated that the patient understood and agreed to proceed. An informed consent document was signed by the patient, witnessed by a nurse, and placed in the patient's chart. Additionally, other treatment options including modalities, medications, and physical therapy were reviewed with the patient. After review of previous anaesthesic history and IV conscious sedation the patient was deemed safe to proceed with todays procedure with IV conscious sedation as ASA class II designation. Safety time-out was performed to confirm patient ID, procedure to be performed and site of procedure. IV sedation was accomplished with a combination of 2mg of Versed was administered by the RN after DO order, titrated to patient comfort during the course of the procedure while the patient remained responsive to all verbal commands In the prone position, following sterile prep and drape of the lumbar region, the L1/2 translaminar space was identified fluoroscopically. The skin was anesthetized via a 25-gauge, 1.5-inch needle with 1% lidocaine solution. At this point, a 22-gauge short bevel spinal needle was atraumatically introduced a nd advanced under fluoroscopic guidance into the region of the L1/2 translaminar space. Depth was confirmed on lateral view. Radiological data, including multiple fluoroscopic views of the lumbar spine, reveal a spinal needle at the L1/2 translaminar space. Lateral views then show placement of the needle in the epidural space. Subsequent views show contrast material flowing superiorly and inferiorly in the epidural space. No vascular or intrathecal uptake is observed. At this point, using loss of resistance technique with saline and air, the epidural space was entered. This was confirmed following negative aspiration with injection of approximately 1.5 cc of Isovue 200, showing excellent epidural flow without vascular or intrathecal uptake. At this point, 1 cc of 1% lidocaine solution combined with 2cc or 10mg of dexamethasone and 6mg of betamethasone was injected without incident. The patient tolerated the procedure well without signs or symptoms of complications prior to transfer to the recovery area continued monitoring without incident. The patient was then transferred to the recovery area where they were observed for an appropriate period of time after the injection. The patient reported a VAS score of 6 prior to the procedure and a post- procedure VAS of 0. POST OP INSTRUCTIONS The patient was provided a Pain Log to continue to record their response to the target-specific procedure prior to follow-up visit with their referring physician. Additionally, specific post-injection care instructions and a contact number to our office were provided if concerns arise regarding possible complications associated with the procedure are suspected.
== END 2024-04-30 10:25 | disposition home or self-care (01) ==
PROVIDERS: PCP Family Medicine; Referring Provider Physical Medicine & Rehabilitation; Visit Provider Physical Medicine & Rehabilitation
DX: M51.16 Intervertebral disc disorders with radiculopathy, lumbar region (principal); M48.061 Spinal stenosis, lumbar region without neurogenic claudication
CPT/HCPCS: 62323; 99152; J0702; J1100; J2250; J3490

== ENCOUNTER → 2024-05-11 12:41 | Outpatient (CLI) | payer OTHER, SELFPAY ==
[2024-05-12 04:10] LABS: Immunoglobulin A 325 mg/dL (87-352)
[2024-05-12 22:07] LABS: Tissue Transglutaminase IgA <2 U/mL (0-3)
== END ==
PROVIDERS: PCP Family Medicine; Referring Provider Physician Assistant; Visit Provider Physician Assistant
DX: R10.11 Right upper quadrant pain (principal); K90.0 Celiac disease; K59.00 Constipation, unspecified; Z86.0100 Personal history of colon polyps, unspecified
CPT/HCPCS: 36415; 82784; 83516

== ENCOUNTER → 2024-06-12 12:42 | Outpatient (CLI) | payer OTHER, SELFPAY ==
[2024-06-12 13:03] LABS: Hemoglobin 13.3 g/dL (12.0-16.0); Mean Corpuscular HGB Conc 34.1 % (30-36); Mean Corpuscular Hemoglobin 28.7 PG (26-34); Platelet Count 362 X10^3/uL (150-400); Red Blood Cell Count 4.64 X10^6/uL (4.0-5.2); Red Cell Distribution Width 13.4 % (11.6-14.8); White Blood Cell Count 7.2 X10^3/uL (4.5-11.0)
[2024-06-12 13:12] LABS: Hemoglobin A1C% w Est Avg Glu 5.4 % (4.0-6.0)
[2024-06-12 13:24] LABS: Alanine Aminotransferase 21 IU/L (<35); Albumin 4.5 g/dL (3.5-5.0); Albumin Globulin Ratio 1.7 (1.0-2.8); Alkaline Phosphatase 84 U/L (38-126); Aspartate Aminotransferase 25 IU/L (14-36); BUN Creatinine Ratio 16.7 (6-22); Bilirubin Total 0.4 mg/dL (0.2-1.3); Blood Urea Nitrogen 14 mg/dL (7-17); Calcium 9.1 mg/dL (8.4-10.2); Carbon Dioxide 26 mmol/L (22-32); Chloride 104 mmol/L (98-107); Estimated Glomerular Filt Rate > 60 mL/min (>60); Globulin 2.6 g/dL (1.7-4.1); Glucose 88 mg/dL (70-100); HEMOLYSIS < 15 (0-50); Potassium 4.6 mmol/L (3.4-5.1); Sodium 138 mmol/L (137-145); Total Protein 7.1 g/dL (6.3-8.2)
[2024-06-12 13:53] LABS: TSH w/ Reflex to FT4 0.86 uIU/mL (0.47-4.68)
[2024-06-12 14:12] LABS: Vitamin B12 409 pg/mL (239-931)
== END ==
PROVIDERS: PCP Family Medicine; Referring Provider Family Medicine; Visit Provider Family Medicine
DX: R94.31 Abnormal electrocardiogram [ECG] [EKG] (principal); G37.3 Acute transverse myelitis in demyelinating disease of central nervous system; R53.82 Chronic fatigue, unspecified
CPT/HCPCS: 36415; 80053; 82607; 83036; 84443; 85027

== ENCOUNTER → 2024-08-15 10:17 | Outpatient (CLI) | payer OTHER, SELFPAY ==
[2024-08-15 11:07] LABS: Cholesterol 184 mg/dL (140-199); HDL Cholesterol 44 mg/dL (40-60); LDL Cholesterol Calculated 98 mg/dL (<100); Triglycerides 211 mg/dL (35-150)
[2024-08-15 15:09] LABS: Rubella Antibody IgG 16.2 IU/mL (>15)
[2024-08-15 15:19] LABS: HIV 1 & 2 Ab/Ag 4th Gen Combo NEGATIVE (NEGATIVE)
[2024-08-16 13:36] LABS: Rubeola Measles IgG 26.7 AU/mL (Immune >16.4)
== END ==
PROVIDERS: PCP Family Medicine; Referring Provider Family Medicine; Visit Provider Family Medicine
DX: Z01.84 Encounter for antibody response examination (principal); Z11.4 Encounter for screening for human immunodeficiency virus [HIV]; E78.2 Mixed hyperlipidemia
CPT/HCPCS: 36415; 80061; 86735; 86762; 86765; 87389

== ENCOUNTER → 2024-09-23 06:45 | Outpatient (CLI) | payer OTHER, SELFPAY ==
--- NOTE | 2024-09-23 06:52 | DI.CT.S_ITS ---
PROCEDURE: CT SINUS SCREEN WO CON INDICATIONS: chronic pansinisutis TECHNIQUE: Noncontrast 3.0 mm axial images acquired from the frontal sinuses to the mid- sella, with coronal and sagittal reformats. For radiation dose reduction, the following was used: automated exposure control, adjustment of mA and/or kV according to patient size. COMPARISON: None. FINDINGS: Image quality: Excellent. Maxillary Sinuses: No bony remodeling or destruction. Sinuses are clear. Ethmoid Air Cells: No bony remodeling or destruction. Sinuses are clear. Sphenoid Sinuses: No bony remodeling or destruction. Sinuses are clear. Frontal Sinuses: No bony remodeling or destruction. Sinuses are clear. Ostiomeatal Complexes: Ostiomeatal complexes are patent. No Bibi cells. Miscellaneous: Visualized intra-orbital contents are normal. Pneumatization of both middle turbinates noted. Slight nasal septal deviation to the left with bowing of the osseous septum to the left as well IMPRESSION: Incidental bilateral cassidy bullosa. Otherwise unremarkable CT of the sinuses without osseous remodeling. Approved by: Rodolfo Qiu M.D. on 09/23/2024 at 11:02
== END ==
PROVIDERS: PCP Family Medicine; Referring Provider Otolaryngology; Visit Provider Otolaryngology
DX: J32.4 Chronic pansinusitis (principal); R51.9 Headache, unspecified; J34.3 Hypertrophy of nasal turbinates
CPT/HCPCS: 70486

== ENCOUNTER → 2024-10-21 13:21 | Outpatient (CLI) | payer OTHER, SELFPAY ==
[2024-10-21 13:45] LABS: Add Manual Diff / Slide Review NO; Hematocrit 40.5 % (36-46); Hemoglobin 13.6 g/dL (12.0-16.0); Lymphocytes Absolute Auto 3500 /uL (1100-4500); Mean Corpuscular HGB Conc 33.5 % (30-36); Mean Corpuscular Hemoglobin 28.1 PG (26-34); Mean Corpuscular Volume 83.8 fL (80-100); Platelet Count 347 X10^3/uL (150-400)
== END ==
PROVIDERS: PCP Family Medicine; Referring Provider Midwife; Visit Provider Midwife
DX: Z51.81 Encounter for therapeutic drug level monitoring (principal)
CPT/HCPCS: 36415; 85025

== ENCOUNTER → 2025-03-06 12:40 | Outpatient (CLI) | payer OTHER, SELFPAY ==
--- NOTE | 2025-03-06 12:45 | DI.RAD.S_ITS ---
PROCEDURE: XR HAND RT 2V INDICATIONS: Right thumb trigger TECHNIQUE: 2 views of the hand(s) acquired. COMPARISON: None. FINDINGS: Bones: No fractures or dislocations. Carpal bones are normally aligned. No suspicious bony lesions. 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 Soft tissues: No suspicious soft tissue calcifications. IMPRESSION: No acute bony abnormality. Dictated by: Santo Park M.D. on 03/06/2025 at 16:27 Approved by: Santo Park M.D. on 03/06/2025 at 16:27
--- NOTE | 2025-03-06 12:47 | DI.MG.S_ITS ---
MM screening mammo BI: 03/06/2025. BI-RADS: 1 CLINICAL: 54-year old female for bilateral screening mammogram. Tyrer-Cuzick lifetime risk of 12.0%. No personal or first-degree family history of breast cancer. The patient had a prior right breast biopsy. PRIOR EXAMS 03/06/2024, 02/20/2023. MAMMOGRAPHY TECHNIQUE: 2D and 3D (tomosynthesis) digital mammographic views obtained, with additional images as needed for full coverage. Current study was also evaluated with a Computer Aided Detection (CAD) system. DENSITY C. The breasts are heterogeneously dense, which may obscure small masses. MAMMOGRAPHY FINDINGS Bilateral: No suspicious mass, asymmetry, microcalcification, or other abnormality seen. IMPRESSION: * No evidence of malignancy. RECOMMENDATIONS Bilateral * Annual screening mammography. OVERALL ASSESSMENT CATEGORY BI-RADS-1: Negative. The [employer] recommends annual screening mammography beginning at age 40 for women with average risk of breast cancer. ELECTRONICALLY SIGNED: Silver Martin M.D. on 03/08/2025 at 08:11:18 AM PT Interpreting Station ID: [id number]
== END ==
LOC: MAMMO 12:42
PROVIDERS: PCP Family Medicine; Referring Provider Family Medicine; Visit Provider Family Medicine
DX: Z12.31 Encounter for screening mammogram for malignant neoplasm of breast (principal); R92.333 Mammographic heterogeneous density, bilateral breasts; M65.311 Trigger thumb, right thumb; M19.041 Primary osteoarthritis, right hand
CPT/HCPCS: 73120; 77063; 77067